=== PATIENT | female | born 1950 | race Caucasian/White ===

== ENCOUNTER 2025-03-08 18:54 | Inpatient (IN) | payer MEDICARE, SELFPAY ==
[2025-03-08 20:00] VITALS: BP 154/64; PULSE 59; RESP 18; TEMP 36.2; O2SAT 96
--- NOTE | 2025-03-08 20:50 | PD.RESCONSUL ---
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 She has a history of bladder prolapse with recurrent UTIs, and had multiple cystoplasty, last one was done more than 5 years ago. Her most recent regionally started about 3 months ago and she has been on oral ANTIBIOTICS since without resolution of symptoms. Reports burning sensation with urination, nausea, headache and chills. Denies urinary urgency or frequency, vaginal discharge, fever, vomiting/diarrhea/constipation or abdominal pain. Yesterday, she was admitted at for worsening urinary symptoms and received 1 dose of MEROPENEM in the ED. She was subsequently admitted to floors, however was told that MEROPENEM was out of stock. Additionally, she was unhappy with the service and decided to AMA. She has her urine culture results which was done 2 days ago showing ESBL Klebsiella pneumonia, sensitive to carbapenem only. Cardiac hodges, she has no history of heart failure but has been under supervision for mild mitral stenosis. She does have angina pectoralis which was managed with NITROGLYCERIN. She's had complete noninvasive cardiac workup including cardiac echo showing normal left ventricular function and nonischemic finding on nuclear stress test. Currently denies chest pain, shortness of breath, or palpitations. She has labile hypertension, also managed by cardiology on multiple medications as listed below. She's had extensive workup including MR angiogram showing no evidence of renal artery stenosis. She is also being seen by nephrology and presumably negative workup. Past Medical History: As above. Past Surgical History: Multiple cystoplasty, right hip replacement, left knee replacement. Medications: BP regimen: HYDRALAZINE 100 mg BID, HCTZ 25 mg BID, LABETALOL 200 mg BID, NIFEDIPINE 30 mg BID, GUANFACINE 2 mg HS. PRAVASTATIN 80 mg HS, LEVOTHYROXINE 150 mcg, FENOFIBRATE 160 mcg, DOXEPIN 50 mg HS, GABAPENTIN 300 mg TID, TIZANIDINE 4 mg HS PRN, ZOFRAN 4 mg q.8h. PRN. Allergies: No known allergies. Family History: Noncontributory. Social History: Born and raised in [place], has 2 children. Occasional alcohol drinking, no tobacco or illicit drug use. Reason for consult: Symptomatic ESBL Klebsiella UTI requiring admission for IV ANTIBIOTICS and further evaluation by infectious disease. cc:: cc: Jason Farfan MD Exam Vital Signs Temp Pulse Resp BP Pulse Ox O2 Del Method 97.1 F 59 L 18 154/64 H 96 Room Air 03/08/25 20:00 03/08/25 20:00 03/08/25 20:00 03/08/25 20:00 03/08/25 20:00 03/08/25 20:00 Narrative Exam GENERAL Normal appearing female, no apparent distress. HEENT NCAT.?DESTINI. Oral mucosa is moist. Patent Nares NECK Supple, nontender, no JVD. CHEST RRR, grade 2 diastolic murmur present. CTAB, no w/r/r, symmetrical expansion. ABDOMEN Soft, flat, nontender. No guarding/rebound tenderness/masses. Bowel sounds presents EXTREMITIES No edema/cyanosis.? SKIN Warm and dry, no jaundice/rashes. NEUROMUSCULAR No lumbar or midline, no CVA, no paraspinal muscle spasm or tenderness. Moves all 4 extremities well, with full ROM and good CSM. MCKENNA x4, CN II-XII grossly intact. No focal neurologic deficits. PSYCHIATRY Normal mood and affect, cooperative, no SI or HI or hallucinations. Results Labs 03/08/25 21:06 03/08/25 21:06 Quality Measures Quality Measures VTE prophylaxis Advance care planning discussed with:: patient Medications Home Medications and Allergies Home Medications ?Medication ?Instructions ?Recorded ?Confirmed ?Type doxepin 50 mg capsule 50 mg PO HS 03/08/25 03/08/25 History fenofibrate 160 mg tablet 160 mg PO DAILY 03/08/25 03/08/25 History gabapentin 300 mg capsule 300 mg PO TID 03/08/25 03/08/25 History guanfacine 2 mg tablet 2 mg PO HS 03/08/25 03/08/25 History hydralazine 100 mg tablet 100 mg PO BID 03/08/25 03/08/25 History hydrochlorothiazide 25 mg tablet 25 mg PO BID 03/08/25 03/08/25 History hydrocodone 10 mg-acetaminophen 1 tab PO Q4H PRN pain 03/08/25 03/08/25 History 325 mg tablet labetalol 200 mg tablet 200 mg PO BID 03/08/25 03/08/25 History levothyroxine 150 mcg tablet 150 mcg PO DAILY 03/08/25 03/08/25 History nifedipine 30 mg tablet,extended 30 mg PO BID 03/08/25 03/08/25 History release ondansetron 4 mg disintegrating 4 mg PO Q8H PRN nausea and vomiting 03/08/25 03/08/25 History tablet pravastatin 80 mg tablet 80 mg PO HS 03/08/25 03/08/25 History tizanidine 4 mg capsule 4 mg PO HS PRN muscle spasticity 03/08/25 03/08/25 History Allergies Allergy/AdvReac Type Severity Reaction Status Date / Time No Known Allergies Allergy Verified 03/08/25 20:55 Visit Medications Acetaminophen (Acetaminophen 325 Mg Tablet) 650 mg PO Q6H PRN PRN Reason: PAIN SCALE 1-3 (mild Stop: 04/07/25 20:42 Acetaminophen (Acetaminophen 325 Mg Tablet) 650 mg PO Q6H PRN PRN Reason: Fever >100.4 Stop: 04/07/25 20:42 Meropenem 1,000 mg/ Sodium (Chloride) 50 mls @ 100 mls/hr IV Q8HR [facility] Stop: 03/15/25 21:59 Ondansetron HCl (Ondansetron Inj 2 Mg/Ml Inj 2 Ml) 4 mg IVP Q6H PRN; Protocol PRN Reason: NAUSEA OR VOMITING Stop: 04/07/25 20:42 Pantoprazole Sodium (Pantoprazole Inj 40 Mg Vial) 40 mg IVP QDAY ROBERT Stop: 04/07/25 20:44 Assessment & Plan Plan This is a pleasant 74-year-old female with PMHx of resistant HTN, HLD, angina pectoralis, mitral valve stenosis hypothyroidism, 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 Complicated UTI secondary to ESBL Klebsiella UTI in the setting of bladder prolapse Recurrent UTI 2/2 bladder prolapse Presenting with 3 months of worsening dysuria, with new onset chills, failed outpatient ANTIBIOTIC therapy. He has bladder prolapse s/p more than 10 cystoplasties without improvement of symptoms. She had urine culture done 2 days ago which was reviewed showing ESBL Klebsiella sensitive to carbapenem only. She was admittedat [facility] yesterday and was received a dose of MEROPENIM however she was told that pharmacy was out of stock, after which she AMAed. Currently aseptic, afebrile, no leukocytosis. Renal function near baseline. ? Continue MEROPENEM q.8h. ? Pending urine and blood culture ? Pending recommendations from infectious disease Resistant hypertension Hyperlipidemia Angina pectoralis History of resistant hypertension and angina pectoralis with complete negative workup. She is on multiple home ANTIHYPERTENSIVE, managed by cardiology, Dr. Farfan. She states blood pressure usually runs in the 220s systolic at night and she becomes symptomatic with severe headache and nausea. Angina pectoralis managed with NITROGLYCERIN. Currently denies headache, chest pain, palpitations or shortness of breath. ? Continue home NIFEDIPINE 30 mg BID ? Continue home LABETALOL 200 mg BID ? Continue home HYDRALAZINE 100 mg BID (hold if SBP less than 150) ? Continue home HYDROCHLOROTHIAZIDE 20 mg BID ? Continue home GUAIFENESIN 2 mg HS ? Continue home PRAVASTATIN 40 mg daily ? Continue home FENOFIBRATE 160 mg daily ? 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 Baseline creatinine around 2.0. Currently creatinine is 1.6, BUN 24. ? Continue home Betina-Theo daily ? Renally dose meds, avoid overdiuresis and NEPHROTOXINS ? Daily CMP Hypothyroidism ? Continue home LEVOTHYROXINE 150 mg Anxiety/depression Chronic back pain ? Continue DOXEPIN 50 mg HS ? Continue GABAPENTIN 300 mg TID ? Continue home TIZANIDINE 4 mg HS ? Continue home NORCO q.4h. PRN Health maintenance Diet: Cardiorenal GI prophylaxis: PROTONIX DVT prophylaxis: HEPARIN subcu Antibiotics: MEROPENEM CODE STATUS: Full code Disposition: Admitted for ESBL UTI, on IV ANTIBIOTICS, pending ID recommendations. Case was discussed with attending physician, Dr. Swanson. Valeria Fraser DO PGY II This document was transcribed using voice recognition technology. Minor inaccuracies may be present. Attending Provider Attestation/Addendum I have examined the patient, reviewed labs and imaging findings, discussed the case with the resident(s), and reviewed entered orders. I agree with the plan of care as outlined in this note, with these additional summaries/recommendations: Patient direct admit from cardiology service. In short, she is a 74-year-old female with extensive medical history including bladder prolapse complicated by recurrent UTI requiring IV antibiotic therapy on multiple occasions in the past. Patient recently admitted at [facility] just prior to admission here after cultures grew ESBL Klebsiella. She will be admitted for further IV antibiotic therapy and management planning. Garrison Swanson MD
--- NOTE | 2025-03-08 20:55 | XR_ITS ---
Examination: AP chest single view Technique one AP portable upright chest single view Date and time: March 08, 2025 1018 hrs. Indications: Coughing congestion today. Findings: Normal heart size Lungs are clear. The osseous structures are intact Impression: No active disease
[2025-03-08 21:17] LABS: Basophils # (Auto) 0.0 Thou/mm3 (0.0-0.2); Basophils % (Auto) 1 % (0-2.5); Eosinophils # (Auto) 0.1 Thou/mm3 (0.0-0.5); Eosinophils % (Auto) 1 % (0-10); Hematocrit 38.6 % (36.0-46.0); Hemoglobin 12.2 g/dL (12.0-16.0); Immature Granulocytes Auto 0.03 Thou/mm3 (0.00-0.00); Lymphocytes # (Auto) 1.8 Thou/mm3 (1.0-4.8); Lymphocytes % (Auto) 31 % (10-50); Mean Corpuscular HGB Conc 31.6 g/dl (31.0-37.0); Mean Corpuscular Hemoglobin 29.0 pg (25.0-35.0); Mean Corpuscular Volume 92 fL (80-100); Monocytes # (Auto) 0.6 Thou/mm3 (0.0-0.8); Monocytes % (Auto) 10 % (0-12); Neutrophils # (Auto) 3.4 Thou/mm3 (1.8-7.7); Neutrophils % (Auto) 57 % (37-80); Nucleated Red Blood Cell # 0.00 Thou/mm3 (0.00-0.00); Nucleated Red Blood Cell % 0 /100 WBC (0); Platelet Count 216 Thou/mm3 (140-440); RDW Standard Deviation 53.7 fL (36.4-46.3); Red Blood Count 4.21 Miln/mm3 (4.00-5.20); White Blood Count 5.9 Thou/mm3 (3.6-11.0)
[2025-03-08 21:41] LABS: Alanine Aminotransferase 20 U/L (10-49); Albumin, Serum 4.9 gm/dL (3.4-4.8); Albumin/Globulin Ratio 2.2 (1.2-2.2); Alkaline Phosphatase 37 U/L (46-116); Anion Gap 11 (7-16); Aspartate Amino Transferase 26 U/L (0-34); BUN/Creatinine Ratio 15 Ratio (12-20); Bilirubin,Total 0.3 mg/dL (0.3-1.2); Blood Urea Nitrogen 24 mg/dL (9-23); Calcium 10.1 mg/dL (8.3-10.6); Calcium (Corrected) 10.1 mg/dL (8.5-10.1); Carbon Dioxide 27.8 mMol/L (20.0-31.0); Chloride 105 mMol/L (98-107); Creatinine (Component) 1.6 mg/dL (0.6-1.3); Globulin 2.2 gm/dL (2.3-3.5); Glucose 126 mg/dL (74-106); Magnesium 1.8 mg/dL (1.6-2.6); Osmolality,Calculated 292 (275-295); Potassium 3.6 mMol/L (3.4-5.1); Sodium 144 mMol/L (136-145); Total Protein 7.1 gm/dL (5.7-8.2); eGFR 34 See Note
--- NOTE | 2025-03-08 22:00 | PD.RESCONSUL ---
HPI Data of Consult Requesting Physician: Jason Farfan MD Admitting Provider: Jason Farfan MD Attending Provider: Jason Farfan MD Primary Care Provider: Kim Edwards MD Consult Narrative cc:: cc: Jason Farfan MD Exam Vital Signs Temp Pulse Resp BP Pulse Ox O2 Del Method 97.1 F 59 L 18 154/64 H 96 Room Air 03/08/25 20:00 03/08/25 20:00 03/08/25 20:00 03/08/25 20:00 03/08/25 20:00 03/08/25 20:00 Results Labs 03/08/25 21:06 03/08/25 21:06 Labs: Short CBC 03/08/25 Range/Units 21:06 WBC 5.9 (3.6-11.0) Thou/mm3 Hgb 12.2 (12.0-16.0) g/dL Hct 38.6 (36.0-46.0) % Plt Count 216 (140-440) Thou/mm3 BMP 03/08/25 21:06 Sodium 144 Potassium 3.6 Chloride 105 Carbon Dioxide 27.8 BUN 24 H Creatinine 1.6 H Glucose 126 H Calcium 10.1 Liver Function 03/08/25 Range/Units 21:06 Total Bilirubin 0.3 (0.3-1.2) mg/dL AST 26 (0-34) U/L ALT 20 (10-49) U/L Alkaline Phosphatase 37 L (46-116) U/L Albumin 4.9 H (3.4-4.8) gm/dL Medications Home Medications and Allergies Home Medications ?Medication ?Instructions ?Recorded ?Confirmed ?Type doxepin 50 mg capsule 50 mg PO HS 03/08/25 03/08/25 History fenofibrate 160 mg tablet 160 mg PO DAILY 03/08/25 03/08/25 History gabapentin 300 mg capsule 300 mg PO TID 03/08/25 03/08/25 History guanfacine 2 mg tablet 2 mg PO HS 03/08/25 03/08/25 History hydralazine 100 mg tablet 100 mg PO BID 03/08/25 03/08/25 History hydrochlorothiazide 25 mg tablet 25 mg PO BID 03/08/25 03/08/25 History hydrocodone 10 mg-acetaminophen 1 tab PO Q4H PRN pain 03/08/25 03/08/25 History 325 mg tablet labetalol 200 mg tablet 200 mg PO BID 03/08/25 03/08/25 History levothyroxine 150 mcg tablet 150 mcg PO DAILY 03/08/25 03/08/25 History nifedipine 30 mg tablet,extended 30 mg PO BID 03/08/25 03/08/25 History release ondansetron 4 mg disintegrating 4 mg PO Q8H PRN nausea and vomiting 03/08/25 03/08/25 History tablet pravastatin 80 mg tablet 80 mg PO HS 03/08/25 03/08/25 History tizanidine 4 mg capsule 4 mg PO HS PRN muscle spasticity 03/08/25 03/08/25 History Allergies Allergy/AdvReac Type Severity Reaction Status Date / Time No Known Allergies Allergy Verified 03/08/25 20:55 Visit Medications Acetaminophen (Acetaminophen 325 Mg Tablet) 650 mg PO Q6H PRN PRN Reason: PAIN SCALE 1-3 (mild Stop: 04/07/25 20:42 Acetaminophen (Acetaminophen 325 Mg Tablet) 650 mg PO Q6H PRN PRN Reason: Fever >100.4 Stop: 04/07/25 20:42 Hydrocodone Bitart/Acetaminophen (Hydrocodone/Apap 10/325 Tab) 1 tab PO Q4H PRN PRN Reason: PAIN Stop: 03/13/25 20:54 Doxepin HCl (Doxepin Hcl 25 Mg Capsule) 50 mg PO HS [facility]ERT Stop: 04/07/25 20:59 Gabapentin (Gabapentin 300 Mg Capsule) 300 mg PO TID ROBERT Stop: 04/07/25 21:59 Hydralazine HCl (Hydralazine Hcl 25 Mg Tablet) 100 mg PO BID ROBERT Stop: 04/07/25 20:59 Meropenem 1,000 mg/ Sodium (Chloride) 50 mls @ 100 mls/hr IV Q8HR [facility] Stop: 03/15/25 21:59 Labetalol HCl (Labetalol 100 Mg Tablet) 200 mg PO BID [facility] Stop: 04/07/25 21:59 Levothyroxine Sodium (Levothyroxine Sodium 100 Mcg Tablet) 150 mcg PO ACBR ROBERT Stop: 04/08/25 05:59 Nifedipine (Nifedipine Xl 30 Mg Tabcr) 30 mg PO BID ROBERT Stop: 04/07/25 21:59 Non-Formulary Medication (Fenofibrate) 160 mg PO DAILY [facility]ERT Stop: 04/08/25 08:59 Non-Formulary Medication (Guanfacine) 2 mg PO HS ROBERT Stop: 04/07/25 20:59 Ondansetron HCl (Ondansetron Inj 2 Mg/Ml Inj 2 Ml) 4 mg IVP Q6H PRN; Protocol PRN Reason: NAUSEA OR VOMITING Stop: 04/07/25 20:42 Pantoprazole Sodium (Pantoprazole Inj 40 Mg Vial) 40 mg IVP QDAY ROBERT Stop: 04/07/25 20:44 Pravastatin Sodium (Pravastatin Sodium 10 Mg Tablet) 80 mg PO HS ROBERT Stop: 04/08/25 20:59 Tizanidine HCl (Tizanidine Hcl 2 Mg Tablet) 4 mg PO HS PRN PRN Reason: Muscle Spasticity Stop: 04/07/25 20:54 Discontinued Medications Hydralazine HCl (Hydralazine Hcl 25 Mg Tablet) 100 mg PO BID ROBERT Stop: 04/07/25 20:59
[2025-03-08] MEDS: DOXEPIN HCL 25 MG CAPSULE 50 MG PO (22:10)
[2025-03-08] MEDS: MEROPENEM INJ 1,000 MG in SODIUM CHLORIDE 0.9% (Popper) 50 ML 100 MG IV (22:10)
[2025-03-08 22:11] VITALS: BP 154/64; PULSE 59
[2025-03-08] MEDS: NIFEdipine XL 30 MG TABCR PO (22:11)
[2025-03-08] MEDS: LABETALOL 100 MG TABLET 200 MG PO (22:11)
[2025-03-08] MEDS: GABAPENTIN 300 MG CAPSULE PO (22:11)
[2025-03-08 22:21] VITALS: BP 154/64; PULSE 59
[2025-03-09] VITALS (15 sets, daily range): BP systolic 110–154; BP diastolic 48–78; PULSE 51–70; RESP 16–19; TEMP 36.2–36.7; O2SAT 94–97
--- NOTE | 2025-03-09 | XR_ITS ---
Examination: Ultrasound-guided needle placement right basilic vein. Dual-lumen central line placement (PICC line). Fluoroscopy AP chest, portable, single view Exam date and time:March 09, 2025, 1222 hours INDICATIONS: Long-term intravenous antibiotic therapy is needed A timeout was completed verifying correct patient, procedure, site, positioning Informed consent provided Technique: The patient's site was prepped and draped in sterile fashion. Maximum Sterile Barrier Technique used including cap, mask, sterile gown, sterile gloves, and sterile full body drape. If ultrasound technique used: sterile gel and sterile probe covers. Hand Hygiene performed using proper scrub, soap and water, or alcohol-based hand rub. Ultrasound guided apparatus utilized to confirm patency of the right basilic vein, utilizing ultrasonographic guidance successful 21-gauge needle puncture right basilic vein Ultrasound images recorded and stored. 5 cc 1% lidocaine administered for local anesthetic. Successful micropuncture with a 21-gauge needle is performed. 0.18 wire guide is then introduced into the SVC under fluoroscopic guidance. Dual-lumen catheter dilator is then introduced, followed by the catheter in the SVC and proper position under fluoroscopic guidance. Successful aspiration of blood and flushing with heparinized saline is then performed in the 2 venous limbs. The catheter sutured in place. Findings: Under fluoroscopy, the tip of the catheter is in good position in the vena cava. Portable chest x-ray, post line placement is ordered. Estimated blood loss 3 cc The patient tolerated the procedure well and was in stable and satisfactory condition at completion of the procedure Impression: Successful ultrasound-guided needle placement right basilic vein Successful placement of dual lumen central line, percutaneous Fluoroscopy 0.1 minute radiation dose 1.23 milligray 1 spot fluoroscopic chest film. AP chest completion procedure demonstrates satisfactory position central line. May use central line.
[2025-03-09 05:26] LABS: Basophils # (Auto) 0.0 Thou/mm3 (0.0-0.2); Basophils % (Auto) 1 % (0-2.5); Eosinophils # (Auto) 0.1 Thou/mm3 (0.0-0.5); Eosinophils % (Auto) 1 % (0-10); Hematocrit 32.3 % (36.0-46.0); Hemoglobin 10.4 g/dL (12.0-16.0); Immature Granulocytes Auto 0.01 Thou/mm3 (0.00-0.00); Lymphocytes # (Auto) 1.6 Thou/mm3 (1.0-4.8); Lymphocytes % (Auto) 36 % (10-50); Mean Corpuscular HGB Conc 32.2 g/dl (31.0-37.0); Mean Corpuscular Hemoglobin 29.1 pg (25.0-35.0); Mean Corpuscular Volume 91 fL (80-100); Monocytes # (Auto) 0.6 Thou/mm3 (0.0-0.8); Monocytes % (Auto) 14 % (0-12); Neutrophils # (Auto) 2.1 Thou/mm3 (1.8-7.7); Neutrophils % (Auto) 48 % (37-80); Nucleated Red Blood Cell # 0.00 Thou/mm3 (0.00-0.00); Nucleated Red Blood Cell % 0 /100 WBC (0); Platelet Count 200 Thou/mm3 (140-440); RDW Standard Deviation 52.8 fL (36.4-46.3); Red Blood Count 3.57 Miln/mm3 (4.00-5.20); White Blood Count 4.3 Thou/mm3 (3.6-11.0)
[2025-03-09] MEDS: LEVOTHYROXINE SODIUM 100 MCG TABLET 150 MCG PO (05:54)
[2025-03-09] MEDS: MEROPENEM INJ 1,000 MG in SODIUM CHLORIDE 0.9% (Popper) 50 ML 100 MG IV ×3 (05:54→21:19)
[2025-03-09] MEDS: GABAPENTIN 300 MG CAPSULE PO ×3 (05:54→21:21)
[2025-03-09 06:15] LABS: Alanine Aminotransferase 15 U/L (10-49); Albumin, Serum 3.9 gm/dL (3.4-4.8); Albumin/Globulin Ratio 2.2 (1.2-2.2); Alkaline Phosphatase 28 U/L (46-116); Anion Gap 10 (7-16); Aspartate Amino Transferase 21 U/L (0-34); BUN/Creatinine Ratio 15 Ratio (12-20); Bilirubin,Total 0.3 mg/dL (0.3-1.2); Blood Urea Nitrogen 21 mg/dL (9-23); Calcium 9.2 mg/dL (8.3-10.6); Calcium (Corrected) 9.3 mg/dL (8.5-10.1); Carbon Dioxide 26.4 mMol/L (20.0-31.0); Chloride 108 mMol/L (98-107); Creatinine (Component) 1.4 mg/dL (0.6-1.3); Globulin 1.8 gm/dL (2.3-3.5); Glucose 105 mg/dL (74-106); Magnesium 1.6 mg/dL (1.6-2.6); Osmolality,Calculated 289 (275-295); Phosphorous 4.7 mg/dL (2.4-5.1); Potassium 3.9 mMol/L (3.4-5.1); Sodium 144 mMol/L (136-145); Total Protein 5.7 gm/dL (5.7-8.2); eGFR 39 See Note
[2025-03-09] MEDS: VIT B12/Vit C/FA (Nephrovite) TABLET 1 TAB PO (08:16)
[2025-03-09] MEDS: NIFEdipine XL 30 MG TABCR PO ×2 (08:16→21:22)
[2025-03-09] MEDS: PANTOPRAZOLE 40 MG TABLET PO (08:16)
[2025-03-09] MEDS: HEPARIN SOD INJ 5000 UNIT/ML VIAL SC (08:16)
[2025-03-09] MEDS: LABETALOL 100 MG TABLET 200 MG PO ×2 (08:16→21:20)
[2025-03-09] MEDS: Magnesium Sulfate 4 GM Ivpb 4 GM/50 ML BAG IV (09:44)
--- NOTE | 2025-03-09 10:12 | PC.SS ---
Patient Oscar Slaughter is a 74 Year old female admitted for Failed Out patient treatment. SS contacted patient via phone due to precaution measures to discuss discharge plan and verify demographic information. Patient reports she lives at home with her , Gigi Slaughter who patient reports is her surrogate decision maker, [phone]. Patient reports prior to admission she did not utilize any source of DME to assist with ambulation. Patient reports his PCP is Kim Edwards. [facility] [place]. Discharge plan was discussed and patient wishes to return home. Discharge plan: Home Next of kin: , Gigi Slaughter
[2025-03-09 10:27] LABS: Collection Type, Urine Clean Catch
[2025-03-09 10:32] LABS: Bilirubin,Urine Negative (Negative); Blood,Urine Negative (Negative); Clarity,Urine Clear (Clear/Hazy); Color,Urine Yellow (Lt Yel-Yel); Glucose, Urine Negative (Negative); Ketones,Urine Negative (Negative); Leukocyte Esterase,Urine Positive (Negative); Nitrite,Urine Negative (Negative); PH,Urine 6.0 (5.0-7.0); Protein,Urine Negative (Neg - Trace); RBC,Urine 1 /hpf (0-3); Specific Gravity,Urine 1.016 (1.001-1.035); Squamous Epithelial Cell,Urine 1 /hpf (0-5); Urobilinogen,Urine Negative mg/dL (0.0-1.0); WBC,Urine 23 /hpf (0-5)
--- NOTE | 2025-03-09 11:54 | ESPR_ITS ---
<Statement entered by Man Jose MD - 03/09/25 13:55> Patient seen and assessed in hospital bed reporting improvement in presenting symptoms. Patient's blood pressure is well-controlled with her home regimen reinstated in the hospital. Will put an order for PICC line placement as the patient will require 7 days of IV antibiotics; plan is to discharge upon home health approval with IV ertapenem 1 g daily 03/14/2025. Patient otherwise doing well, will continue monitoring for any acute changes. I have personally seen and examined the patient. I agree with the resident's assessment and plan as documented below. Man Jose DO PGY-2 Internal Medicine - GME Documentation for date of: 03/09/25 Subjective Subjective Interval history: Patient was admitted overnight. Patient has no complaints this morning, endorses that she has been chronically urinary incontinent. Wears pad at home and follows with urologist at [facility]. Denies nausea or dysuria, continues to feel fatigued but much improved. Blood pressure is well-controlled, continued patient's home blood pressure regimen per courtesy van driver Dr. Farfan's recommendation. PICC line placed today. Started on IV meropenem 1 g on admission. Patient will require 7 days of antibiotics, plan to discharge tomorrow with home health with ertapenem. Exam Vital Signs Temp Pulse Resp BP Pulse Ox O2 Del Method 97.4 F 55 L 19 133/53 H 96 Room Air 03/09/25 08:00 03/09/25 09:25 03/09/25 08:00 03/09/25 08:16 03/09/25 08:00 03/09/25 08:00 Narrative Exam Physical Exam General: Awake and in no acute distress. Conversational and non-toxic appearing. HEENT: Normocephalic, atraumatic, mucous membranes moist. Heart: Regular rate and rhythm, normal S1 and S2, no murmurs appreciated. Lungs: Clear to auscultation with no wheezing or crackles. Abdomen: Soft, nondistended, nontender, positive bowel sounds. No guarding or rebound tenderness. Neurologic: Alert and oriented x3, no gross neurological deficit, and patient able to move all 4 extremities. Extremities: No edema. Skin: No rash or ecchymoses. Objective Labs 03/10/25 05:30 03/10/25 05:30 Labs: Laboratory Results - last 24 hr 03/08/25 03/09/25 03/09/25 21:06 04:25 09:55 WBC 5.9 4.3 RBC 4.21 3.57 L Hgb 12.2 10.4 L Hct 38.6 32.3 L MCV 92 91 MCH 29.0 29.1 MCHC 31.6 32.2 RDW Std Deviation 53.7 H 52.8 H Plt Count 216 200 Neut % (Auto) 57 48 Lymph % (Auto) 31 36 [place] % (Auto) 10 14 H Eos % (Auto) 1 1 Baso % (Auto) 1 1 Neut # (Auto) 3.4 2.1 Lymph # (Auto) 1.8 1.6 [place] # (Auto) 0.6 0.6 Eos # (Auto) 0.1 0.1 Baso # (Auto) 0.0 0.0 Immature Gran # (Auto) 0.03 H 0.01 H Absolute Nucleated RBC 0.00 0.00 Immature Gran % 1 H 0 Nucleated RBC % 0 0 Sodium 144 144 Potassium 3.6 3.9 Chloride 105 108 H Carbon Dioxide 27.8 26.4 Anion Gap 11 10 BUN 24 H 21 Creatinine 1.6 H 1.4 H Estim Creat Clear Calc Not Performed. Not Performed. eGFR 34 L 39 L BUN/Creatinine Ratio 15 15 Glucose 126 H 105 Calculated Osmolality 292 289 Calcium 10.1 9.2 Corrected Calcium 10.1 9.3 Phosphorus 4.7 Magnesium 1.8 1.6 Total Bilirubin 0.3 0.3 AST 26 21 ALT 20 15 Alkaline Phosphatase 37 L 28 L D Total Protein 7.1 5.7 Albumin 4.9 H 3.9 D Globulin 2.2 L 1.8 L Albumin/Globulin Ratio 2.2 2.2 Ur Collection Type Clean Catch Urine Color Yellow Urine Clarity Clear Urine pH 6.0 Ur Specific [place] 1.016 Urine Protein Negative Urine Glucose (UA) Negative Urine Ketones Negative Urine Blood Negative Urine Nitrite Negative Urine Bilirubin Negative Urine Urobilinogen (Auto) Negative Ur Leukocyte Esterase Positive Urine RBC 1 Urine WBC 23 H Ur Squamous Epith Cells 1 Urine Bacteria None Quality Measures Quality Measures VTE prophylaxis Advance care planning discussed with:: patient Assessment & Plan Assessment Current Active Medications: Generic Name Dose Route Start Last Admin Trade Name Freq PRN Reason Stop Dose Admin Acetaminophen 650 mg 03/08/25 20:43 Acetaminophen 325 Mg Tablet PO 04/07/25 20:42 Q6H PRN PAIN SCALE 1-3 (mild Acetaminophen 650 mg 03/08/25 20:43 Acetaminophen 325 Mg Tablet PO 04/07/25 20:42 Q6H PRN Fever >100.4 Hydrocodone Bitart/Acetaminophen 1 tab 03/09/25 02:14 Hydrocodone/Apap 10/325 Tab PO 03/14/25 02:12 Q4H PRN Pain 4-10 Diphenhydramine HCl 25 mg 03/08/25 22:07 03/08/25 22:21 Diphenhydramine 25 Mg Capsule PO 04/07/25 22:06 25 mg Q6HR PRN Administration ITCHING Doxepin HCl 50 mg 03/08/25 21:00 03/08/25 22:10 Doxepin Hcl 25 Mg Capsule PO 04/07/25 20:59 50 mg HS ROBERT Administration Gabapentin 300 mg 03/08/25 22:00 03/09/25 05:54 Gabapentin 300 Mg Capsule PO 04/07/25 21:59 300 mg TID ROBERT Administration Guanfacine HCl 2 mg 03/09/25 21:00 Guanfacine Hcl 1 Mg Tablet (Non-Formulary) PO 04/08/25 20:59 HS ROBERT Heparin Sodium (Porcine) 5,000 unit 03/09/25 09:00 03/09/25 08:16 Heparin Sod Inj 5000 Unit/Ml Vial SC 03/23/25 08:59 5,000 unit BID ROBERT Administration Hydralazine HCl 100 mg 03/08/25 22:10 03/09/25 08:23 Hydralazine Hcl 25 Mg Tablet PO 04/07/25 22:09 Not Given BID ROBERT Hydrochlorothiazide 25 mg 03/09/25 09:00 03/09/25 08:15 Hydrochlorothiazide 12.5 Mg Capsule PO 04/08/25 08:59 25 mg BID ROBERT Administration Meropenem 1,000 mg/ Sodium 50 mls @ 100 mls/hr 03/08/25 22:00 03/09/25 05:54 Chloride IV 03/15/25 21:59 100 mls/hr Q8HR ROBERT Administration Magnesium Sulfate 4 gm in 50 mls @ 12.5 mls/hr 03/09/25 08:12 03/09/25 09:44 Magnesium Sulfate Ivpb IV 03/09/25 12:11 12.5 mls/hr X1 ONE Administration Labetalol HCl 200 mg 03/08/25 22:00 03/09/25 08:16 Labetalol 100 Mg Tablet PO 04/07/25 21:59 200 mg BID ROBERT Administration Levothyroxine Sodium 150 mcg 03/09/25 06:00 03/09/25 05:54 Levothyroxine Sodium 100 Mcg Tablet PO 04/08/25 05:59 150 mcg ACBR ROBERT Administration Nifedipine 30 mg 03/08/25 22:00 03/09/25 08:16 Nifedipine Xl 30 Mg Tabcr PO 04/07/25 21:59 30 mg BID ROBERT Administration Nitroglycerin 0.4 mg 03/08/25 22:30 Nitroglycerin 0.4 Mg Subl Btl #25 SL Q5MIN PRN CHEST PAIN Non-Formulary Medication 160 mg 03/09/25 09:00 Fenofibrate PO 04/08/25 08:59 DAILY ROBERT Ondansetron HCl 4 mg 03/08/25 20:43 Ondansetron Inj 2 Mg/Ml Inj 2 Ml IVP 04/07/25 20:42 Q6H PRN NAUSEA OR VOMITING Protocol Pantoprazole Sodium 40 mg 03/09/25 09:00 03/09/25 08:16 Pantoprazole 40 Mg Tablet PO 04/08/25 08:59 40 mg QDAY ORBERT Administration Protocol Pravastatin Sodium 80 mg 03/09/25 21:00 Pravastatin Sodium 10 Mg Tablet PO 04/08/25 20:59 HS ROBERT Tizanidine HCl 4 mg 03/08/25 20:55 Tizanidine Hcl 2 Mg Tablet PO 04/07/25 20:54 HS PRN Muscle Spasticity Vitamin B Complex/Vit C/Folic Acid 1 tab 03/09/25 09:00 03/09/25 08:16 Vit B12/Vit C/Fa (Nephrovite) Tablet PO 04/08/25 08:59 1 tab QDAY ROBERT Administration Plan Patient is a 74-year-old female with past medical history of persistent HTN, HLD, angina pectoralis, mitral valve stenosis, hypothyroidism, CKD stage IIIB, recurrent UTIs, anxiety/depression, chronic pain, who was transferred on 03/09 from [facility] for ESBL UTI. #Complicated ESBL UTI in the setting of bladder prolapse # Hx of recurrent UTIs # Bladder prolapse s/p multiple surgeries Presented with 3 months of worsening dysuria, with new onset chills, failed outpatient oral antibiotic therapy. Has long history of bladder prolapse s/p more than 10 cystoplasties without improvement of symptoms. Follows with urologist at [facility]. Urine culture from 03/07 outpatient showed ESBL Klebsiella sensitive to carbapenem only. Was admitted at on 03/07 and received a dose of meropenem but was not able to complete full course due to low stock. On admission, WBC within normal limits. Patient is afebrile. Plan: ? Meropenem IV 1 g daily (03/07- - PICC line placed today, plan to discharge with erbapenem for complete 7 day course ? Pending urine and blood culture #Resistant hypertension #Hyperlipidemia #Angina pectoralis History of resistant hypertension and angina pectoralis with complete negative workup. She is on multiple home antihypertensive medications managed by cardiology, Dr. Farfan. Unclear etiology despite extensive work up. Historically she ran in 220s systolic at night and she becomes symptomatic with severe headache and nausea. Takes nitroglycerin for angina pectoralis. Currently denies headache, chest pain, palpitations or shortness of breath. Plan: ? Continue home dose nifedipine, labetalol, hydralazine, hydrochlorothiazide, guaifenesin ? Continue home dose pravastatin and fenofibrate ? Continue home dose nitroglycerin as needed for chest pain #CKD stage IIIb Chronic medical condition likely secondary to hypertensive nephrosclerosis. Baseline creatinine around 2.0. Currently creatinine is 1.6, BUN 24. Plan: ? Continue home Betina-Theo daily ? Renally dose meds, avoid overdiuresis and nephrotoxic agents ? CTM CMP #Hypothyroidism ? Continue home dose levothyroxine 150 mg daily #Anxiety/depression #Chronic back pain ? Continue home dose enoxaparin ? Continue home dose gabapentin, tizanidine, [place] as needed Health Maintenance Disposition: MedSurg DVT prophylaxis: Heparin GI prophylaxis: Protonix Diet: Cardiorenal CODE STATUS: Full Patient plan of care was discussed with the resident, Dr. Jose, and attending physician, Dr. Saeed. Nilam Bennett, PGY-1 Attending Provider Attestation/Addendum I have discussed and was present for the essential components of the history, physical examination, diagnosis, and treatment plan with the resident. I agree with the patient's care as documented by the resident and amended herein by me. Raz Saeed DO. Although this document has been carefully reviewed, there may still be some phonetic and other typographical errors. These errors are purely grammatical due to imperfections in the software program and should not be construed in any way to compromise the substance of the patient's medical care during this visit.
[2025-03-09] MEDS: HEPARIN SOD LOCK SYR 100 UNIT/ML 500 UNIT IV (13:10)
[2025-03-09] MEDS: LIDOCAINE INJ PF 1% 30 ML VIAL INFL (13:10)
--- NOTE | 2025-03-09 15:30 | PC.SS ---
SS follow up note; Patient is on IV ABX, pending DR. Darby's Rec's. Possible PIC-Line.
--- NOTE | 2025-03-09 16:01 | PC.CC ---
Addendum entered by Lani Owen RN 03/09/25 17:01: canceled [facility] request with [facility]. closed out case Addendum entered by Lani Owen RN 03/09/25 16:59: spoke to the patient Oscar, she states she does not have anyone to help her with IV abx. Her is 88 years old and does not believe he is capable to administer the IV abx. I spoke to Dr. Saeed, informed him that w/o a willing CG to administer the IV meds, she doesn't qualify for home health. He said to cancel. Addendum entered by Lani Owen RN 03/09/25 16:44: [facility] accepted and booked. [facility] can open on 03/10, however still working with [facility] for med delivery. Original Note: spoke to patient, freedom of choice for hh provided. patient chose [facility]. [facility] ref sent [facility], waiting for response
--- NOTE | 2025-03-09 17:43 | ESHP_ITS ---
<Statement entered by Jason Farfan MD - 03/10/25 10:13> I personally evaluated examined this patient with PGY 2Dr. Brian Leon patient is well-known to me longstanding history of severe and difficult control hypertension is can chronic back problems back pain history of bladder prolapse with recurrent urinary infections and hypertension came to the hospital because of ESBL urinary tract infection with Klebsiella resistant to most antibiotic except the meropenem admitted to hospital IV antibiotic therapy for 7 days and difficult control hypertension on multiple medication will be continued elevated the patient with PGY 2 Dr. Leon will agree with treatment plan recommendations ID consultation will be obtained patient will require home antibiotic therapy. Documentation for date of: 03/08/25 HPI History of Present Illness Chief complaint: Urinary tract infection/ resistant hypertension History of present illness: 74-year-old female with past medical history of resistant hypertension, hyperlipidemia, mitral stenosis, hypothyroidism, CKD stage IIIb, recurrent UTIs, anxiety depression, chronic pain presenting with burning with urination and dysuria. Patient originally went to for the symptoms however patient was waiting over 2 hours with a systolic blood pressure of 229 and was not given her meds. She also had a urine culture with ESBL Klebsiella resistant to everything except carbapenems. Medication was not available in that institution so the patient signed AMA and left. She spoke to her tour counselor Dr. Farfan who recommended admitting her to [facility]. Prior to coming to [facility] she was on oral antibiotic therapy however her symptoms continue to persist. She has a history of bladder prolapse with recurrent UTIs, and had multiple cystoplasty, last one was done more than 5 years ago. Her most recent regionally started about 3 months ago and she has been on oral antibiotic therapy since without resolution of symptoms. Reports burning sensation with urination, nausea, headache and chills. Denies urinary urgency or frequency, vaginal discharge, fever, vomiting/diarrhea/constipation or abdominal pain. Patient has very resistant hypertension requiring many medications to control which are managed by her tour counselor Dr. Farfan. Patient was admitted for management of urinary tract infection in the setting of failing outpatient therapy. PMHx: As above SX Hx: Multiple cystoplasty, right hip replacement, left knee replacement Social Hx: Social drinking, no tobacco or illicit drug use including THC FH X: Unknown Allergies: No known drug allergies Medications: Hydralazine 100 mg twice daily, hydrochlorothiazide 25 mg twice daily, labetalol 200 mg twice daily, nifedipine 30 mg twice daily, guanfacine 2 mg at bedtime, pravastatin 80 mg at bedtime, levothyroxine 150 mcg, fenofibrate 160 mcg, doxepin 50 mg at bedtime, gabapentin 300 mg 3 times daily, tizanidine 4 mg at bedtime as needed, Zofran 4 mg every 8 as needed Review of Systems Review of Systems Systems Reviewed: All systems reviewed, normal except as documented Exam Vital Signs Temp Pulse Resp BP Pulse Ox O2 Del Method 98.0 F 63 17 121/48 L 94 L Room Air 03/09/25 16:00 03/09/25 17:38 03/09/25 16:00 03/09/25 16:00 03/09/25 16:00 03/09/25 16:00 Narrative Exam Physical Exam GENERAL: NAD, AAOx3 HEENT: Moist mucosa. Eyes open, symmetrical, & clear CARDIO: Heart RRR, no obvious murmurs PULM: No noted coughing/dyspnea CTA B/L, no R/W/R GI: Abdomen soft, nondistended, no pain on palpation. BSx4 SKIN/MSK/EXT: No wounds/rashes/edema/amputations, no pain on palpation. Pedal pulses present B/L NEURO: AAOx3, no focal neuro deficits, able to move all 4 extremities Results: Labs 03/09/25 04:25 03/09/25 04:25 Labs: Short CBC 03/08/25 03/09/25 Range/Units 21:06 04:25 WBC 5.9 4.3 (3.6-11.0) Thou/mm3 Hgb 12.2 10.4 L (12.0-16.0) g/dL Hct 38.6 32.3 L (36.0-46.0) % Plt Count 216 200 (140-440) Thou/mm3 BMP 03/08/25 03/09/25 21:06 04:25 Sodium 144 144 Potassium 3.6 3.9 Chloride 105 108 H Carbon Dioxide 27.8 26.4 BUN 24 H 21 Creatinine 1.6 H 1.4 H Glucose 126 H 105 Calcium 10.1 9.2 Liver Function 03/08/25 03/09/25 Range/Units 21:06 04:25 Total Bilirubin 0.3 0.3 (0.3-1.2) mg/dL AST 26 21 (0-34) U/L ALT 20 15 (10-49) U/L Alkaline Phosphatase 37 L 28 L D (46-116) U/L Albumin 4.9 H 3.9 D (3.4-4.8) gm/dL Urine 03/09/25 Range/Units 09:55 Urine Color Yellow (Lt Yel-Yel) Urine Clarity Clear (Clear/Hazy) Urine pH 6.0 (5.0-7.0) Ur Specific [place] 1.016 (1.001-1.035) Urine Protein Negative (Neg - Trace) Urine Glucose (UA) Negative (Negative) Quality Measures Quality Measures VTE prophylaxis Advance care planning discussed with:: patient Medications Home Medications and Allergies Home Medications ?Medication ?Instructions ?Recorded ?Confirmed ?Type doxepin 50 mg capsule 50 mg PO HS 03/08/25 5 History fenofibrate 160 mg tablet 160 mg PO DAILY 03/08/25 History gabapentin 300 mg capsule 300 mg PO TID 03/08/2503/08 History guanfacine 2 mg tablet 2 mg PO HS 03/08/25 03/08/25 History hydralazine 100 mg tablet 100 mg PO BID 03/08/2503/08 History hydrochlorothiazide 25 mg tablet 25 mg PO BID 03/08/25 03/08/25 History hydrocodone 10 mg-acetaminophen 1 tab PO Q4H PRN pain 03/08/25 03/08/25 History 325 mg tablet labetalol 200 mg tablet 200 mg PO BID 03/08/2503/08 History levothyroxine 150 mcg tablet 150 mcg PO DAILY 03/08/25 03/08/25 History nifedipine 30 mg tablet,extended 30 mg PO BID 03/08/25 03/08/25 History release ondansetron 4 mg disintegrating 4 mg PO Q8H PRN nausea and vomiting 03/08/25 03/08/25 History tablet pravastatin 80 mg tablet 80 mg PO HS 03/08/25 5 History tizanidine 4 mg capsule 4 mg PO HS PRN muscle spasti [place] 03/08/25 03/08/25 History Allergies Allergy/AdvReac Type Severity Reaction Status Date / Time No Known Allergies Allergy Verified 03/08/25 20:55 Visit Medications Acetaminophen (Acetaminophen 325 Mg Tablet) 650 mg PO Q6H PRN PRN Reason: PAIN SCALE 1-3 (mild Stop: 04/07/25 20:42 Acetaminophen (Acetaminophen 325 Mg Tablet) 650 mg PO Q6H PRN PRN Reason: Fever >100.4 Stop: 04/07/25 20:42 Hydrocodone Bitart/Acetaminophen (Hydrocodone/Apap 10/325 Tab) 1 tab PO Q4H PRN PRN Reason: Pain 4-10 Stop: 03/14/25 02:12 Last Admin: 03/09/25 14:23 Dose: 1 tab Diphenhydramine HCl (Diphenhydramine 25 Mg Capsule) 25 mg PO Q6HR PRN PRN Reason: ITCHING Stop: 04/07/25 22:06 Last Admin: 03/08/25 22:21 Dose: 25 mg Doxepin HCl (Doxepin Hcl 25 Mg Capsule) 50 mg PO HS ROBERT Stop: 04/07/25 20:59 Last Admin: 03/08/25 22:10 Dose: 50 mg Gabapentin (Gabapentin 300 Mg Capsule) 300 mg PO TID ROBERT Stop: 04/07/25 21:59 Last Admin: 03/09/25 14:17 Dose: 300 mg Guanfacine HCl (Guanfacine Hcl 1 Mg Tablet (Non-Formulary)) 2 mg PO HS ROBERT Stop: 04/08/25 20:59 Heparin Sodium (Porcine) (Heparin Sod Inj 5000 Unit/Ml Vial) 5,000 unit SC BID ROBERT Stop: 03/23/25 08:59 Last Admin: 03/09/25 08:16 Dose: 5,000 unit Hydralazine HCl (Hydralazine Hcl 25 Mg Tablet) 100 mg PO BID ROBERT Stop: 04/07/25 22:09 Last Admin: 03/09/25 08:23 Dose: Not Given Hydrochlorothiazide (Hydrochlorothiazide 12.5 Mg Capsule) 25 mg PO BID ROBERT Stop: 04/08/25 08:59 Last Admin: 03/09/25 08:15 Dose: 25 mg Meropenem 1,000 mg/ Sodium (Chloride) 50 mls @ 100 mls/hr IV Q8HR ROBERT Stop: 03/15/25 21:59 Last Admin: 03/09/25 14:17 Dose: 100 mls/hr Labetalol HCl (Labetalol 100 Mg Tablet) 200 mg PO BID ROBERT Stop: 04/07/25 21:59 Last Admin: 03/09/25 08:16 Dose: 200 mg Levothyroxine Sodium (Levothyroxine Sodium 100 Mcg Tablet) 150 mcg PO ACBR ROBERT Stop: 04/08/25 05:59 Last Admin: 03/09/25 05:54 Dose: 150 mcg Nifedipine (Nifedipine Xl 30 Mg Tabcr) 30 mg PO BID ROBERT Stop: 04/07/25 21:59 Last Admin: 03/09/25 08:16 Dose: 30 mg Nitroglycerin (Nitroglycerin 0.4 Mg Subl Btl #25) 0.4 mg SL Q5MIN PRN PRN Reason: CHEST PAIN Non-Formulary Medication (Fenofibrate) 160 mg PO DAILY ROBERT Stop: 04/08/25 08:59 Ondansetron HCl (Ondansetron Inj 2 Mg/Ml Inj 2 Ml) 4 mg IVP Q6H PRN; Protocol PRN Reason: NAUSEA OR VOMITING Stop: 04/07/25 20:42 Pantoprazole Sodium (Pantoprazole 40 Mg Tablet) 40 mg PO QDAY ROBERT; Protocol Stop: 04/08/25 08:59 Last Admin: 03/09/25 08:16 Dose: 40 mg Pravastatin Sodium (Pravastatin Sodium 10 Mg Tablet) 80 mg PO HS ROBERT Stop: 04/08/25 20:59 Tizanidine HCl (Tizanidine Hcl 2 Mg Tablet) 4 mg PO HS PRN PRN Reason: Muscle Spasticity Stop: 04/07/25 20:54 Vitamin B Complex/Vit C/Folic Acid (Vit B12/Vit C/Fa (Nephrovite) Tablet) 1 tab PO QDAY ROBERT Stop: 04/08/25 08:59 Last Admin: 03/09/25 08:16 Dose: 1 tab Discontinued Medications Hydrocodone Bitart/Acetaminophen (Hydrocodone/Apap 10/325 Tab) 1 tab PO Q4H PRN PRN Reason: PAIN Stop: 03/13/25 20:54 Heparin Sodium (Beef Lung) (Heparin Sod Lock Syr 100 Unit/Ml) 500 unit IV X1 ONE Stop: 03/09/25 13:11 Last Admin: 03/09/25 13:10 Dose: 500 unit Hydralazine HCl (Hydralazine Hcl 25 Mg Tablet) 100 mg PO BID ROBERT Stop: 04/07/25 20:59 Hydralazine HCl (Hydralazine Hcl 25 Mg Tablet) 100 mg PO BID ROBERT Stop: 04/07/25 20:59 Magnesium Sulfate (Magnesium Sulfate Ivpb) 4 gm in 50 mls @ 12.5 mls/hr IV X1 ONE Stop: 03/09/25 12:11 Last Admin: 03/09/25 09:44 Dose: 12.5 mls/hr Lidocaine HCl (Lidocaine Inj Pf 1% 30 Ml Vial) 30 ml INFL X1 ONE Stop: 03/09/25 13:11 Last Admin: 03/09/25 13:10 Dose: 3 ml Pantoprazole Sodium (Pantoprazole Inj 40 Mg Vial) 40 mg IVP QDAY ROBERT Stop: 04/07/25 20:44 Last Admin: 03/08/25 22:11 Dose: 40 mg Potassium Chloride (Potassium Chloride 20 Meq Tabcr) 20 meq PO X1 ONE Stop: 03/09/25 08:13 Last Admin: 03/09/25 09:44 Dose: 20 meq Assessment & Plan Plan 74-year-old female with past medical history of resistant hypertension, hyperlipidemia, mitral stenosis, hypothyroidism, CKD stage IIIb, recurrent UTIs, anxiety depression, chronic pain presenting with burning with urination and dysuria. Admitted for UTI after failing outpatient therapy as well as management of resistant hypertension. #Resistant hypertension #Hyperlipidemia #Angina pectoralis Coming to a different hospital with a systolic blood pressure of 229, was not given her home medications patient left AMA and came to our institution. History of resistant hypertension and angina pectoralis with complete negative workup. She is on multiple home anti-hypertensives, managed by cardiology, Dr. Farfan. She states blood pressure usually runs in the 220s systolic at night and she becomes symptomatic with severe headache and nausea. Angina pectoralis managed with nitroglycerin. Currently denies headache, chest pain, palpitations or shortness of breath. ? Resume labetalol 200 mg twice daily ? Resume nifedipine 30 mg twice daily ? Resume hydrochlorothiazide 25 mg twice daily ? Resume guanfacine 2 mg p.o. at bedtime ? Resume hydralazine 100 mg p.o. twice daily hold if systolic blood pressure less than 150 ? Continue home pravastatin 40 mg daily ? Continue home fenofibrate 160 mg daily ? Continue nitroglycerin SL PRN for chest pain #Complicated UTI secondary to ESBL Klebsiella UTI in the setting of bladder prolapse #Recurrent UTI secondary bladder prolapse #CKD stage IIIb #Hypothyroidism #Anxiety/depression #Chronic back pain ? Manage as per IM team Case discussed with my attending Dr. Adolph Leon MD PGY-2 Disclaimer: Despite multiple revisions, due to the dictation software being used, the document bellow may not be free of grammatical errors including phonetic/typographic errors. However, this does not deter from our commitment to providing health care in the patient's best interest in mind.
--- NOTE | 2025-03-09 17:44 | ESPR_ITS ---
<Statement entered by Jason Farfan MD - 03/10/25 10:14> I personally evaluated examined the patient appears to be doing little better today she received antibiotics with meropenem blood pressure controlled well no chest pain shortness reported and overall she is doing much better no fever high white count since she is clinically stable we will try to arrange for home antibiotic therapy for 7 days of antibiotics ID consultation will be obtained as well evaluate patient with resident physician Dr. Brian Leon agree with treatment plan recommendations Documentation for date of: 03/09/25 Subjective Subjective Interval history: Patient seen today at the bedside found awake, alert, orientedx3. No overnight events reported. Vitals and labs reviewed. No active complaints at this time. Patient had PICC line placement today for IV antibiotic. Considering her recurrent UTIs and history of bladder prolapse and various cystoscopies ID and urology consulted. Likely discharge in the next 24-48 hours. Exam Vital Signs Temp Pulse Resp BP Pulse Ox O2 Del Method 98.0 F 63 17 121/48 L 94 L Room Air 03/09/25 16:00 03/09/25 17:38 03/09/25 16:00 03/09/25 16:00 03/09/25 16:00 03/09/25 16:00 Narrative Exam Physical Exam GENERAL: NAD, AAOx3 HEENT: Moist mucosa. Eyes open, symmetrical, & clear CARDIO: Heart RRR, no obvious murmurs PULM: No noted coughing/dyspnea CTA B/L, no R/W/R GI: Abdomen soft, nondistended, no pain on palpation. BSx4 SKIN/MSK/EXT: No wounds/rashes/edema/amputations, no pain on palpation. Pedal pulses present B/L NEURO: AAOx3, no focal neuro deficits, able to move all 4 extremities Objective Labs 03/09/25 04:25 03/09/25 04:25 Labs: Laboratory Results - last 24 hr 03/08/25 03/09/25 03/09/25 21:06 04:25 09:55 WBC 5.9 4.3 RBC 4.21 3.57 L Hgb 12.2 10.4 L Hct 38.6 32.3 L MCV 92 91 MCH 29.0 29.1 MCHC 31.6 32.2 RDW Std Deviation 53.7 H 52.8 H Plt Count 216 200 Neut % (Auto) 57 48 Lymph % (Auto) 31 36 [place] % (Auto) 10 14 H Eos % (Auto) 1 1 Baso % (Auto) 1 1 Neut # (Auto) 3.4 2.1 Lymph # (Auto) 1.8 1.6 [place] # (Auto) 0.6 0.6 Eos # (Auto) 0.1 0.1 Baso # (Auto) 0.0 0.0 Immature Gran # (Auto) 0.03 H 0.01 H Absolute Nucleated RBC 0.00 0.00 Immature Gran % 1 H 0 Nucleated RBC % 0 0 Sodium 144 144 Potassium 3.6 3.9 Chloride 105 108 H Carbon Dioxide 27.8 26.4 Anion Gap 11 10 BUN 24 H 21 Creatinine 1.6 H 1.4 H Estim Creat Clear Calc Not Performed. Not Performed. eGFR 34 L 39 L BUN/Creatinine Ratio 15 15 Glucose 126 H 105 Calculated Osmolality 292 289 Calcium 10.1 9.2 Corrected Calcium 10.1 9.3 Phosphorus 4.7 Magnesium 1.8 1.6 Total Bilirubin 0.3 0.3 AST 26 21 ALT 20 15 Alkaline Phosphatase 37 L 28 L D Total Protein 7.1 5.7 Albumin 4.9 H 3.9 D Globulin 2.2 L 1.8 L Albumin/Globulin Ratio 2.2 2.2 Ur Collection Type Clean Catch Urine Color Yellow Urine Clarity Clear Urine pH 6.0 Ur Specific [place] 1.016 Urine Protein Negative Urine Glucose (UA) Negative Urine Ketones Negative Urine Blood Negative Urine Nitrite Negative Urine Bilirubin Negative Urine Urobilinogen (Auto) Negative Ur Leukocyte Esterase Positive Urine RBC 1 Urine WBC 23 H Ur Squamous Epith Cells 1 Urine Bacteria None Quality Measures Quality Measures VTE prophylaxis Advance care planning discussed with:: patient Assessment & Plan Assessment Current Active Medications: Generic Name Dose Route Start Last Admin Trade Name Freq PRN Reason Stop Dose Admin Acetaminophen 650 mg 03/08/25 20:43 Acetaminophen 325 Mg Tablet PO 04/07/25 20:42 Q6H PRN PAIN SCALE 1-3 (mild Acetaminophen 650 mg 03/08/25 20:43 Acetaminophen 325 Mg Tablet PO 04/07/25 20:42 Q6H PRN Fever >100.4 Hydrocodone Bitart/Acetaminophen 1 tab 03/09/25 02:14 03/09/25 14:23 Hydrocodone/Apap 10/325 Tab PO 03/14/25 02:12 1 tab Q4H PRN Administration Pain 4-10 Diphenhydramine HCl 25 mg 03/08/25 22:07 03/08/25 22:21 Diphenhydramine 25 Mg Capsule PO 04/07/25 22:06 25 mg Q6HR PRN Administration ITCHING Doxepin HCl 50 mg 03/08/25 21:00 03/08/25 22:10 Doxepin Hcl 25 Mg Capsule PO 04/07/25 20:59 50 mg HS ROBERT Administration Gabapentin 300 mg 03/08/25 22:00 03/09/25 14:17 Gabapentin 300 Mg Capsule PO 04/07/25 21:59 300 mg TID ROBERT Administration Guanfacine HCl 2 mg 03/09/25 21:00 Guanfacine Hcl 1 Mg Tablet (Non-Formulary) PO 04/08/25 20:59 HS ROBERT Heparin Sodium (Porcine) 5,000 unit 03/09/25 09:00 03/09/25 08:16 Heparin Sod Inj 5000 Unit/Ml Vial SC 03/23/25 08:59 5,000 unit BID ROBERT Administration Hydralazine HCl 100 mg 03/08/25 22:10 03/09/25 08:23 Hydralazine Hcl 25 Mg Tablet PO 04/07/25 22:09 Not Given BID ROBERT Hydrochlorothiazide 25 mg 03/09/25 09:00 03/09/25 08:15 Hydrochlorothiazide 12.5 Mg Capsule PO 04/08/25 08:59 25 mg BID ROBERT Administration Meropenem 1,000 mg/ Sodium 50 mls @ 100 mls/hr 03/08/25 22:00 03/09/25 14:17 Chloride IV 03/15/25 21:59 100 mls/hr Q8HR ROBERT Administration Labetalol HCl 200 mg 03/08/25 22:00 03/09/25 08:16 Labetalol 100 Mg Tablet PO 04/07/25 21:59 200 mg BID ROBERT Administration Levothyroxine Sodium 150 mcg 03/09/25 06:00 03/09/25 05:54 Levothyroxine Sodium 100 Mcg Tablet PO 04/08/25 05:59 150 mcg ACBR ROBERT Administration Nifedipine 30 mg 03/08/25 22:00 03/09/25 08:16 Nifedipine Xl 30 Mg Tabcr PO 04/07/25 21:59 30 mg BID ROBERT Administration Nitroglycerin 0.4 mg 03/08/25 22:30 Nitroglycerin 0.4 Mg Subl Btl #25 SL Q5MIN PRN CHEST PAIN Non-Formulary Medication 160 mg 03/09/25 09:00 Fenofibrate PO 04/08/25 08:59 DAILY ROBERT Ondansetron HCl 4 mg 03/08/25 20:43 Ondansetron Inj 2 Mg/Ml Inj 2 Ml IVP 04/07/25 20:42 Q6H PRN NAUSEA OR VOMITING Protocol Pantoprazole Sodium 40 mg 03/09/25 09:00 03/09/25 08:16 Pantoprazole 40 Mg Tablet PO 04/08/25 08:59 40 mg QDAY ROBERT Administration Protocol Pravastatin Sodium 80 mg 03/09/25 21:00 Pravastatin Sodium 10 Mg Tablet PO 04/08/25 20:59 HS ROBERT Tizanidine HCl 4 mg 03/08/25 20:55 Tizanidine Hcl 2 Mg Tablet PO 04/07/25 20:54 HS PRN Muscle Spasticity Vitamin B Complex/Vit C/Folic Acid 1 tab 03/09/25 09:00 03/09/25 08:16 Vit B12/Vit C/Fa (Nephrovite) Tablet PO 04/08/25 08:59 1 tab QDAY ROBERT Administration Plan 74-year-old female with past medical history of resistant hypertension, hyperlipidemia, mitral stenosis, hypothyroidism, CKD stage IIIb, recurrent UTIs, anxiety depression, chronic pain presenting with burning with urination and dysuria. Admitted for UTI after failing outpatient therapy as well as management of resistant hypertension. #Resistant hypertension #Hyperlipidemia #Angina pectoralis Coming to a different hospital with a systolic blood pressure of 229, was not given her home medications patient left AMA and came to our institution. History of resistant hypertension and angina pectoralis with complete negative workup. She is on multiple home anti-hypertensives, managed by cardiology, Dr. Farfan. She states blood pressure usually runs in the 220s systolic at night and she becomes symptomatic with severe headache and nausea. Angina pectoralis managed with nitroglycerin. Currently denies headache, chest pain, palpitations or shortness of breath. ? Resume labetalol 200 mg twice daily ? Resume nifedipine 30 mg twice daily ? Resume hydrochlorothiazide 25 mg twice daily ? Resume guanfacine 2 mg p.o. at bedtime ? Resume hydralazine 100 mg p.o. twice daily hold if systolic blood pressure less than 150 ? Continue home pravastatin 40 mg daily ? Continue home fenofibrate 160 mg daily ? Continue nitroglycerin SL PRN for chest pain #Complicated UTI secondary to ESBL Klebsiella UTI in the setting of bladder prolapse #Recurrent UTI secondary bladder prolapse ? PICC line placed, will likely be discharged on erbapenem ? Urology and ID consulted given her multiple UTIs and bladder issues with surgeries. #CKD stage IIIb #Hypothyroidism #Anxiety/depression #Chronic back pain ? Manage as per IM team Case discussed with my attending Dr. Adolph Leon MD PGY-2 Disclaimer: Despite multiple revisions, due to the dictation software being used, the document bellow may not be free of grammatical errors including phonetic/typographic errors. However, this does not deter from our commitment to providing health care in the patient's best interest in mind.
[2025-03-09] MEDS: GUANFACINE HCL 1 MG 2 MG PO (21:20)
[2025-03-09] MEDS: PRAVASTATIN SODIUM 10 MG TABLET 80 MG PO (21:20)
[2025-03-09] MEDS: DOXEPIN HCL 25 MG CAPSULE 50 MG PO (21:22)
[2025-03-10] VITALS (8 sets, daily range): BP systolic 116–129; BP diastolic 46–99; PULSE 48–75; RESP 15–18; TEMP 36.3–36.4; O2SAT 93–98; BMI 28.8
[2025-03-10 06:04] LABS: Basophils # (Auto) 0.0 Thou/mm3 (0.0-0.2); Basophils % (Auto) 1 % (0-2.5); Eosinophils # (Auto) 0.1 Thou/mm3 (0.0-0.5); Eosinophils % (Auto) 1 % (0-10); Hematocrit 32.7 % (36.0-46.0); Hemoglobin 10.4 g/dL (12.0-16.0); Immature Granulocytes Auto 0.02 Thou/mm3 (0.00-0.00); Lymphocytes # (Auto) 1.5 Thou/mm3 (1.0-4.8); Lymphocytes % (Auto) 28 % (10-50); Mean Corpuscular HGB Conc 31.8 g/dl (31.0-37.0); Mean Corpuscular Hemoglobin 29.4 pg (25.0-35.0); Mean Corpuscular Volume 92 fL (80-100); Monocytes # (Auto) 0.5 Thou/mm3 (0.0-0.8); Monocytes % (Auto) 10 % (0-12); Neutrophils # (Auto) 3.1 Thou/mm3 (1.8-7.7); Neutrophils % (Auto) 59 % (37-80); Nucleated Red Blood Cell # 0.00 Thou/mm3 (0.00-0.00); Nucleated Red Blood Cell % 0 /100 WBC (0); Platelet Count 203 Thou/mm3 (140-440); RDW Standard Deviation 53.2 fL (36.4-46.3); Red Blood Count 3.54 Miln/mm3 (4.00-5.20); White Blood Count 5.3 Thou/mm3 (3.6-11.0)
[2025-03-10] MEDS: LEVOTHYROXINE SODIUM 100 MCG TABLET 150 MCG PO (06:17)
[2025-03-10] MEDS: GABAPENTIN 300 MG CAPSULE PO (06:18)
[2025-03-10] MEDS: MEROPENEM INJ 1,000 MG in SODIUM CHLORIDE 0.9% (Popper) 50 ML 100 MG IV (06:18)
[2025-03-10 06:25] LABS: Alanine Aminotransferase 16 U/L (10-49); Albumin, Serum 4.1 gm/dL (3.4-4.8); Albumin/Globulin Ratio 2.2 (1.2-2.2); Alkaline Phosphatase 28 U/L (46-116); Anion Gap 9 (7-16); Aspartate Amino Transferase 20 U/L (0-34); BUN/Creatinine Ratio 18 Ratio (12-20); Bilirubin,Total 0.2 mg/dL (0.3-1.2); Blood Urea Nitrogen 24 mg/dL (9-23); Calcium 9.3 mg/dL (8.3-10.6); Calcium (Corrected) 9.3 mg/dL (8.5-10.1); Carbon Dioxide 28.2 mMol/L (20.0-31.0); Chloride 106 mMol/L (98-107); Creatinine (Component) 1.3 mg/dL (0.6-1.3); Globulin 1.9 gm/dL (2.3-3.5); Glucose 116 mg/dL (74-106); Magnesium 1.8 mg/dL (1.6-2.6); Osmolality,Calculated 289 (275-295); Phosphorous 3.5 mg/dL (2.4-5.1); Potassium 3.6 mMol/L (3.4-5.1); Sodium 143 mMol/L (136-145); Total Protein 6.0 gm/dL (5.7-8.2); eGFR 43 See Note
[2025-03-10] MEDS: LABETALOL 100 MG TABLET 200 MG PO (08:17)
[2025-03-10] MEDS: NIFEdipine XL 30 MG TABCR PO (08:17)
[2025-03-10] MEDS: VIT B12/Vit C/FA (Nephrovite) TABLET 1 TAB PO (08:17)
[2025-03-10] MEDS: PANTOPRAZOLE 40 MG TABLET PO (08:17)
[2025-03-10] MEDS: Magnesium Sulfate 4 GM Ivpb 4 GM/50 ML BAG IV (08:18)
--- NOTE | 2025-03-10 08:55 | PC.NURSE ---
@[id number] Dr Farfan at bedside. Informed him that I was notified by LETTY Baker patient's HR down to [address] Farfan states if patient is on beta natalie and is resting then HR can be low. No new orders received.
--- NOTE | 2025-03-10 09:04 | ESPR_ITS ---
Subjective Subjective Interval history: 74 y/o with hx as noted by others. bladder prolapse noted. Exam Vital Signs Temp Pulse Resp BP Pulse Ox O2 Del Method 97.5 F 57 L 16 124/99 H 93 L Room Air 03/10/25 04:00 03/10/25 08:17 03/10/25 04:00 03/10/25 08:17 03/10/25 04:00 03/10/25 04:00 Narrative Exam benign exam. no back pain currently and mild supra pubic discomfort as main sx Objective - Internal Medicine Labs 03/10/25 05:30 03/10/25 05:30 Labs: Laboratory Results - last 24 hr 03/09/25 03/10/25 09:55 05:30 WBC 5.3 RBC 3.54 L Hgb 10.4 L Hct 32.7 L MCV 92 MCH 29.4 MCHC 31.8 RDW Std Deviation 53.2 H Plt Count 203 Neut % (Auto) 59 Lymph % (Auto) 28 [place] % (Auto) 10 Eos % (Auto) 1 Baso % (Auto) 1 Neut # (Auto) 3.1 Lymph # (Auto) 1.5 [place] # (Auto) 0.5 Eos # (Auto) 0.1 Baso # (Auto) 0.0 Immature Gran # (Auto) 0.02 H Absolute Nucleated RBC 0.00 Immature Gran % 0 Nucleated RBC % 0 Sodium 143 Potassium 3.6 Chloride 106 Carbon Dioxide 28.2 Anion Gap 9 BUN 24 H Creatinine 1.3 Estim Creat Clear Calc Not Performed. eGFR 43 L BUN/Creatinine Ratio 18 Glucose 116 H Calculated Osmolality 289 Calcium 9.3 Corrected Calcium 9.3 Phosphorus 3.5 Magnesium 1.8 Total Bilirubin 0.2 L AST 20 ALT 16 Alkaline Phosphatase 28 L Total Protein 6.0 Albumin 4.1 Globulin 1.9 L Albumin/Globulin Ratio 2.2 Ur Collection Type Clean Catch Urine Color Yellow Urine Clarity Clear Urine pH 6.0 Ur Specific [place] 1.016 Urine Protein Negative Urine Glucose (UA) Negative Urine Ketones Negative Urine Blood Negative Urine Nitrite Negative Urine Bilirubin Negative Urine Urobilinogen (Auto) Negative Ur Leukocyte Esterase Positive Urine RBC 1 Urine WBC 23 H Ur Squamous Epith Cells 1 Urine Bacteria None Assessment & Plan A&P Narrative recurrent uti prior hyster bso at age 25 try fosfomycin3 gm q 3d x 3 and vaginal [id number] per week home ok. no prior fosfomycin exposure noted. Time Spent With Patient Time: Total time spent is greater than 50% in coordination of care (as documented) at patient's floor/unit and/or counseling patient:
--- NOTE | 2025-03-10 09:16 | ESPR_ITS ---
<Statement entered by Jason Farfan MD - 03/13/25 12:23> I personally examined reviewed the patient appears to be doing better clinically no signs of sepsis or infection patient does have urinary infection with ESBL Klebsiella sensitive to meropenem will be discharged home when she is stable on oral IV dose of meropenem or equivalent medication with home health nurse getting medications at home. Evaluated patient with resident physician PGY 2 Dr. Brian Leon evaluated patient and agree with the treatment plan recommendation as documented by resident physician Documentation for date of: 03/10/25 Subjective Subjective Interval history: Patient seen today at the bedside found awake, alert, orientedx3. No overnight events reported. Vitals and labs reviewed. Patient has PICC line in place will complete 7-day antibiotic with ertapenem which is once a day. Infectious disease was consulted will appreciate recommendations, urology also consulted however patient can likely follow-up with urology as an outpatient for her bladder prolapse. Exam Vital Signs Temp Pulse Resp BP Pulse Ox O2 Del Method 97.5 F 56 L 16 124/99 H 93 L Room Air 03/10/25 04:00 03/10/25 09:07 03/10/25 04:00 03/10/25 08:17 03/10/25 04:00 03/10/25 04:00 Narrative Exam Physical Exam GENERAL: NAD, AAOx3 HEENT: Moist mucosa. Eyes open, symmetrical, & clear CARDIO: Heart RRR, no obvious murmurs PULM: No noted coughing/dyspnea CTA B/L, no R/W/R GI: Abdomen soft, nondistended, no pain on palpation. BSx4 SKIN/MSK/EXT: No wounds/rashes/edema/amputations, no pain on palpation. Pedal pulses present B/L NEURO: AAOx3, no focal neuro deficits, able to move all 4 extremities Objective Labs 03/10/25 05:30 03/10/25 05:30 Labs: Laboratory Results - last 24 hr 03/09/25 03/10/25 09:55 05:30 WBC 5.3 RBC 3.54 L Hgb 10.4 L Hct 32.7 L MCV 92 MCH 29.4 MCHC 31.8 RDW Std Deviation 53.2 H Plt Count 203 Neut % (Auto) 59 Lymph % (Auto) 28 [place] % (Auto) 10 Eos % (Auto) 1 Baso % (Auto) 1 Neut # (Auto) 3.1 Lymph # (Auto) 1.5 [place] # (Auto) 0.5 Eos # (Auto) 0.1 Baso # (Auto) 0.0 Immature Gran # (Auto) 0.02 H Absolute Nucleated RBC 0.00 Immature Gran % 0 Nucleated RBC % 0 Sodium 143 Potassium 3.6 Chloride 106 Carbon Dioxide 28.2 Anion Gap 9 BUN 24 H Creatinine 1.3 Estim Creat Clear Calc Not Performed. eGFR 43 L BUN/Creatinine Ratio 18 Glucose 116 H Calculated Osmolality 289 Calcium 9.3 Corrected Calcium 9.3 Phosphorus 3.5 Magnesium 1.8 Total Bilirubin 0.2 L AST 20 ALT 16 Alkaline Phosphatase 28 L Total Protein 6.0 Albumin 4.1 Globulin 1.9 L Albumin/Globulin Ratio 2.2 Ur Collection Type Clean Catch Urine Color Yellow Urine Clarity Clear Urine pH 6.0 Ur Specific [place] 1.016 Urine Protein Negative Urine Glucose (UA) Negative Urine Ketones Negative Urine Blood Negative Urine Nitrite Negative Urine Bilirubin Negative Urine Urobilinogen (Auto) Negative Ur Leukocyte Esterase Positive Urine RBC 1 Urine WBC 23 H Ur Squamous Epith Cells 1 Urine Bacteria None Quality Measures Quality Measures VTE prophylaxis Advance care planning discussed with:: patient Assessment & Plan Assessment Current Active Medications: Generic Name Dose Route Start Last Admin Trade Name Freq PRN Reason Stop Dose Admin Acetaminophen 650 mg 03/08/25 20:43 Acetaminophen 325 Mg Tablet PO 04/07/25 20:42 Q6H PRN PAIN SCALE 1-3 (mild Acetaminophen 650 mg 03/08/25 20:43 Acetaminophen 325 Mg Tablet PO 04/07/25 20:42 Q6H PRN Fever >100.4 Hydrocodone Bitart/Acetaminophen 1 tab 03/09/25 02:14 03/09/25 14:23 Hydrocodone/Apap 10/325 Tab PO 03/14/25 02:12 1 tab Q4H PRN Administration Pain 4-10 Diphenhydramine HCl 25 mg 03/08/25 22:07 03/08/25 22:21 Diphenhydramine 25 Mg Capsule PO 04/07/25 22:06 25 mg Q6HR PRN Administration ITCHING Doxepin HCl 50 mg 03/08/25 21:00 03/09/25 21:22 Doxepin Hcl 25 Mg Capsule PO 04/07/25 20:59 50 mg HS ROBERT Administration Gabapentin 300 mg 03/08/25 22:00 03/10/25 06:18 Gabapentin 300 Mg Capsule PO 04/07/25 21:59 300 mg TID ROBERT Administration Guanfacine HCl 2 mg 03/09/25 21:00 03/09/25 21:20 Guanfacine Hcl 1 Mg Tablet (Non-Formulary) PO 04/08/25 20:59 2 mg HS ROBERT Administration Heparin Sodium (Porcine) 5,000 unit 03/09/25 09:00 03/10/25 08:18 Heparin Sod Inj 5000 Unit/Ml Vial SC 03/23/25 08:59 Not Given BID ROBERT Hydralazine HCl 100 mg 03/08/25 22:10 03/10/25 08:07 Hydralazine Hcl 25 Mg Tablet PO 04/07/25 22:09 Not Given BID ROBERT Hydrochlorothiazide 25 mg 03/09/25 09:00 03/10/25 08:17 Hydrochlorothiazide 12.5 Mg Capsule PO 04/08/25 08:59 25 mg BID ROBERT Administration Magnesium Sulfate 4 gm in 50 mls @ 12.5 mls/hr 03/10/25 08:04 03/10/25 08:18 Magnesium Sulfate Ivpb IV 03/10/25 12:03 12.5 mls/hr X1 ONE Administration Piperacillin Sod/Tazobactam 100 mls @ 200 mls/hr 03/10/25 14:00 Sod 4.5 gm/ Sodium Chloride IV 03/17/25 13:59 Q8HR [facility] Protocol Labetalol HCl 200 mg 03/08/25 22:00 03/10/25 08:17 Labetalol 100 Mg Tablet PO 04/07/25 21:59 200 mg BID ROBERT Administration Levothyroxine Sodium 150 mcg 03/09/25 06:00 03/10/25 06:17 Levothyroxine Sodium 100 Mcg Tablet PO 04/08/25 05:59 150 mcg ACBR ROBERT Administration Nifedipine 30 mg 03/08/25 22:00 03/10/25 08:17 Nifedipine Xl 30 Mg Tabcr PO 04/07/25 21:59 30 mg BID ROBERT Administration Nitroglycerin 0.4 mg 03/08/25 22:30 Nitroglycerin 0.4 Mg Subl Btl #25 SL Q5MIN PRN CHEST PAIN Non-Formulary Medication 160 mg 03/09/25 09:00 Fenofibrate PO 04/08/25 08:59 DAILY ROBERT Ondansetron HCl 4 mg 03/08/25 20:43 Ondansetron Inj 2 Mg/Ml Inj 2 Ml IVP 04/07/25 20:42 Q6H PRN NAUSEA OR VOMITING Protocol Pantoprazole Sodium 40 mg 03/09/25 09:00 03/10/25 08:17 Pantoprazole 40 Mg Tablet PO 04/08/25 08:59 40 mg QDAY ROBERT Administration Protocol Pravastatin Sodium 80 mg 03/09/25 21:00 03/09/25 21:20 Pravastatin Sodium 10 Mg Tablet PO 04/08/25 20:59 80 mg HS ROBERT Administration Tizanidine HCl 4 mg 03/08/25 20:55 Tizanidine Hcl 2 Mg Tablet PO 04/07/25 20:54 HS PRN Muscle Spasticity Vitamin B Complex/Vit C/Folic Acid 1 tab 03/09/25 09:00 03/10/25 08:17 Vit B12/Vit C/Fa (Nephrovite) Tablet PO 04/08/25 08:59 1 tab QDAY ROBERT Administration Plan 74-year-old female with past medical history of resistant hypertension, hyperlipidemia, mitral stenosis, hypothyroidism, CKD stage IIIb, recurrent UTIs, anxiety depression, chronic pain presenting with burning with urination and dysuria. Admitted for UTI after failing outpatient therapy as well as management of resistant hypertension. #Resistant hypertension #Hyperlipidemia #Angina pectoralis Coming to a different hospital with a systolic blood pressure of 229, was not given her home medications patient left AMA and came to our institution. History of resistant hypertension and angina pectoralis with complete negative workup. She is on multiple home anti-hypertensives, managed by cardiology, Dr. Farfan. She states blood pressure usually runs in the 220s systolic at night and she becomes symptomatic with severe headache and nausea. Angina pectoralis managed with nitroglycerin. Currently denies headache, chest pain, palpitations or shortness of breath. ? Resume labetalol 200 mg twice daily ? Resume nifedipine 30 mg twice daily ? Resume hydrochlorothiazide 25 mg twice daily ? Resume guanfacine 2 mg p.o. at bedtime ? Resume hydralazine 100 mg p.o. twice daily hold if systolic blood pressure less than 150 ? Continue home pravastatin 40 mg daily ? Continue home fenofibrate 160 mg daily ? Continue nitroglycerin SL PRN for chest pain #Complicated UTI secondary to ESBL Klebsiella UTI in the setting of bladder prolapse #Recurrent UTI secondary bladder prolapse ? PICC line placed, will likely be discharged on ertapenem ? Urology and ID consulted given her multiple UTIs and bladder issues with surgeries. #CKD stage IIIb #Hypothyroidism #Anxiety/depression #Chronic back pain ? Manage as per IM team Case discussed with my attending Dr. Adolph Leon MD PGY-2 Disclaimer: Despite multiple revisions, due to the dictation software being used, the document bellow may not be free of grammatical errors including phonetic/typographic errors. However, this does not deter from our commitment to providing health care in the patient's best interest in mind.
--- NOTE | 2025-03-10 09:42 | XR_ITS ---
Examination: Retroperitoneal ultrasound, complete Technique: Multiple high resolution grayscale images of the retroperitoneum obtained, including kidneys and bladder. Exam date and time:March 10, 2025, 1122 hours INDICATIONS: History urinary tract infections beginning 3 months ago FINDINGS: Right kidney 9.5 cm cortex 1.3 cm Left kidney 9.7 cm cortex 1.2 cm Mild renal scarring No hydronephrosis Contracted urinary bladder IMPRESSION: Small kidneys with bilateral renal cortical thinning Mild renal scarring No hydronephrosis
--- NOTE | 2025-03-10 09:50 | PC.NURSE ---
Patient to CT via gurney in stable condition.
[2025-03-10 10:45] LABS: Hepatitis C Antibody Non Reactive (Non React)
[2025-03-10] MEDS: FOSFOMYCIN PWD 3 GM PACKET (NON-FORMULARY) PO (10:57)
[2025-03-10] MEDS: ESTROGENS,CONJ VAG CR 30 GM TUBE VAGINAL (10:57)
--- NOTE | 2025-03-10 11:23 | ESCONSULT_ITS ---
RE: DEVYN OLIVIER : 1950 DATE OF CONSULTATION: 03/09/2025 REFERRING PHYSICIAN: Dr. Farfan. REASON FOR CONSULTATION: Apparent UTI with more of a cystitis with history of bladder prolapse of uncertain significance and multiple bladder surgeries at outside hospitals for many years. PAST MEDICAL HISTORY: Her medical problems include hypertension, urinary incontinence, and prior hysterectomy and BSO done at age 25. She has never tried vaginal estrogen cream and it probably is timely to do that. Her UA shows only 35 white cells, not very many. I [facility] and they have blood cultures that are negative at 48 hours on 03/07/2025 and she did relatively well here with urine culture pending from last night and blood cultures were negative overnight at 2106 on 03/08/2025. She did well for about a day without any antibiotics at all. Her creatinine was 1.6 on arrival and is down to 1.3 with hydration. Urine shows 23 white cells, not very striking. Culture is pending, but the lab here cultures all urine, so it is hard to know with that significance. Apparently, her urine grew ESBL producing Klebsiella that was resistant to all antibiotics. She has never tried fosfomycin or vaginal estrogen. She will try both of those together. PAST SURGICAL HISTORY: Her surgical history includes multiple bladder surgeries, about 10, according to the patient, 4 surgeries on her right hip, and a left knee replacement done in the past at [place]. The right hip was done 4 times. The second time was for infection. The third and fourth times were for other problems. She has had multiple other surgeries including neck surgery, gallbladder surgery, again prior hysterectomy and BSO at age 25. She has had some sort of vaginal mass that turned out to be benign followed by bleeding repeatedly resulting in the surgery as mentioned. She has had no cycle since then, she has not tried vaginal estrogen as mentioned. ALLERGIES: NONE NOTED. IMMUNIZATIONS: Last tetanus is not known. She does take a flu shot. She has had 3 COVID vaccines and has had pneumococcal vaccine as well. FAMILY HISTORY: Family history is positive for diabetes in her father. She is not noted to be diabetic. The blood glucose is occasionally mildly elevated. SOCIAL HISTORY: She lives at home with her . She is a nonsmoker and I did not asked about work history. I assume She may be retired as she is 74 and he is probably a bit older. PHYSICAL EXAMINATION: ABDOMEN: The patient has a benign abdomen. There is no CVA tenderness grossly and the patient did not complain of any back pain. She has a bad back according to her and so, imaging of the back was not done. RECOMMENDATIONS: We will get some renal imaging before she goes to make sure that there is no obstruction. There is a prior MRI noted in the past. She will probably go home. I am going to change her to fosfomycin 3 g twice a week every 3 days. The system does not let me do that, so I am going to go with twice a week for 3 doses total. The first dose before she leaves and the second and third dose will be later. The vaginal estrogen cream is tried every twice a week for about 3-6 months. If it works and she has no problems with it, then she may continue it indefinitely. There is association with systemic estrogen and female cancers, but she has no history of cancer and she is 74 years old and this is not a systemic, but a topical treatment for which there was very little absorption. I have no objection given her vaginal issues also on the internal medicine boards. I will check on her moving forward Thursday if she remains, but if she goes home, I have no objections. DT: 09:37:12 TT: 10:06:00 Ref: [id number] - TID: [id number] MTDD
[2025-03-10] MEDS: FENOFIBRATE 160 MG TABLET PO (11:57)
--- NOTE | 2025-03-10 12:19 | PC.CM ---
Received HH order for IV ABTs, referral sent to out via [employer], pending responses at this time.
--- NOTE | 2025-03-10 12:22 | ESCONSULT_ITS ---
<Statement entered by Enoc Darby MD - 03/12/25 17:20> [facility]. all findings confirmed. see my note for additional findings HPI Data of Consult Requesting Physician: Derik Saeed DO Admitting Provider: Jason Farfan MD Attending Provider: Derik Saeed DO Primary Care Provider: Kim Edwards MD Consult Narrative History of present illness: The patient is a 74-year-old female with significant past medical history of resistant hypertension, hyperlipidemia, angina pectoralis, mitral valve stenosis, hypothyroidism, CKD stage IIIb, and recurrent UTI for past 30 years, with more than 10 bladder surgeries, anxiety/depression, chronic pain, presented with chief complaint of dysuria and nausea on 03/08/2025. She reported associated fever 3 days ago. 1 day before presentation the patient had visited [facility], for similar urinary symptoms, and received 1 dose of meropenem in the ED, and was admitted to inpatient service, but meropenem was out of stock when she decided to leave [facility]. Urine cultures drawn over there revealed ESBL Klebsiella pneumonia, sensitive to carbapenem only. The patient never underwent treatment with fosfomycin or vaginal estrogen. During my evaluation, patient reported mild dysuria, and lower abdominal pain, but denied any fever or chills, nausea or vomiting, headache, chest pain, SOB, orthopnea or PND, or any leg swelling. During my evaluation, her vitals were significant for BP 124/99, with other vitals WNL. Labs revealed white count 5.3, hemoglobin 10.4, creatinine 1.3, GFR 43, with other chemistry panel fairly stable. Hepatitis C nonreactive. UA significant for white count of 23, leukocyte esterase positive. Blood culture recently done on 03/07/2025 has been negative so far, called micro lab there and confirmed it. PMH: As mentioned above Surgical history: Right hip replacement x 4, left knee replacement x 1, multiple bladder surgeries and cystoplasty, hysterectomy with bilateral oophorectomy at age 25, cholecystectomy Family history: Significant for hypertension and diabetes mellitus in father Social history: Born and raised in [place], has 2 children, occasional alcoholic drinking, no tobacco or illicit drug use Allergies: No known allergies Infectious disease consultation was done for further management of ESBL Klebsiella UTI only sensitive to carbapenems at [facility]. cc:: cc: Derik Saeed DO Review of Systems Review of Systems Systems Reviewed: All systems reviewed, normal except as documented (Above) Exam Vital Signs Temp Pulse Resp BP Pulse Ox O2 Del Method 97.4 F 70 15 124/99 H 98 Room Air 03/10/25 08:00 03/10/25 11:43 03/10/25 08:00 03/10/25 08:17 03/10/25 08:00 03/10/25 08:00 Narrative Exam General: No acute distress, Alert and Oriented x 3 HEENT: Moist mucous membranes, oropharynx clear Neck: Supple, No masses, No JVD CVS: S1S2 Regular rate and rhythm, No murmurs, rubs or gallops Lungs: Clear to auscultation with no accessory use, no wheeze no rhonchi Abd: Soft, mild tenderness over lower pelvic region, +BS, no organomegaly Ext: No edema, warm and well perfused Skin: No rash Psych: Appropriate mood and affect Results Labs 03/10/25 05:30 03/10/25 05:30 Labs: Short CBC 03/10/25 Range/Units 05:30 WBC 5.3 (3.6-11.0) Thou/mm3 Hgb 10.4 L (12.0-16.0) g/dL Hct 32.7 L (36.0-46.0) % Plt Count 203 (140-440) Thou/mm3 BMP 03/10/25 05:30 Sodium 143 Potassium 3.6 Chloride 106 Carbon Dioxide 28.2 BUN 24 H Creatinine 1.3 Glucose 116 H Calcium 9.3 Liver Function 03/10/25 Range/Units 05:30 Total Bilirubin 0.2 L (0.3-1.2) mg/dL AST 20 (0-34) U/L ALT 16 (10-49) U/L Alkaline Phosphatase 28 L (46-116) U/L Albumin 4.1 (3.4-4.8) gm/dL Quality Measures Quality Measures VTE prophylaxis Advance care planning discussed with:: patient Medications Home Medications and Allergies Home Medications ?Medication ?Instructions ?Recorded ?Confirmed ?Type doxepin 50 mg capsule 50 mg PO HS 03/08/25 5 History fenofibrate 160 mg tablet 160 mg PO DAILY 03/08/25 History gabapentin 300 mg capsule 300 mg PO TID 03/08/2503/08 History guanfacine 2 mg tablet 2 mg PO HS 03/08/25 03/08/25 History hydralazine 100 mg tablet 100 mg PO BID 03/08/2503/08 History hydrochlorothiazide 25 mg tablet 25 mg PO BID 03/08/25 03/08/25 History hydrocodone 10 mg-acetaminophen 1 tab PO Q4H PRN pain 03/08/25 03/08/25 History 325 mg tablet labetalol 200 mg tablet 200 mg PO BID 03/08/2503/08 History levothyroxine 150 mcg tablet 150 mcg PO DAILY 03/08/25 03/08/25 History nifedipine 30 mg tablet,extended 30 mg PO BID 03/08/25 03/08/25 History release ondansetron 4 mg disintegrating 4 mg PO Q8H PRN nausea and vomiting 03/08/25 03/08/25 History tablet pravastatin 80 mg tablet 80 mg PO HS 03/08/25 5 History tizanidine 4 mg capsule 4 mg PO HS PRN muscle spasti city 03/08/25 03/08/25 History Allergies Allergy/AdvReac Type Severity Reaction Status Date / Time No Known Allergies Allergy Verified 03/08/25 20:55 Visit Medications Acetaminophen (Acetaminophen 325 Mg Tablet) 650 mg PO Q6H PRN PRN Reason: PAIN SCALE 1-3 (mild Stop: 04/07/25 20:42 Acetaminophen (Acetaminophen 325 Mg Tablet) 650 mg PO Q6H PRN PRN Reason: Fever >100.4 Stop: 04/07/25 20:42 Hydrocodone Bitart/Acetaminophen (Hydrocodone/Apap 10/325 Tab) 1 tab PO Q4H PRN PRN Reason: Pain 4-10 Stop: 03/14/25 02:12 Last Admin: 03/09/25 14:23 Dose: 1 tab Fenofibrate 160 Mg (Tablet) 0 ea PO QDAY ROBERT Stop: 04/09/25 11:59 Last Admin: 03/10/25 11:57 Dose: 1 tablet Diphenhydramine HCl (Diphenhydramine 25 Mg Capsule) 25 mg PO Q6HR PRN PRN Reason: ITCHING Stop: 04/07/25 22:06 Last Admin: 03/08/25 22:21 Dose: 25 mg Doxepin HCl (Doxepin Hcl 25 Mg Capsule) 50 mg PO HS ROBERT Stop: 04/07/25 20:59 Last Admin: 03/09/25 21:22 Dose: 50 mg Fosfomycin Tromethamine (Fosfomycin Pwd 3 Gm Packet (Non-Formulary)) 3 gm PO 2 X WEEKLY ROBERT Stop: 03/17/25 09:44 Last Admin: 03/10/25 10:57 Dose: 3 gm Gabapentin (Gabapentin 300 Mg Capsule) 300 mg PO TID ROBERT Stop: 04/07/25 21:59 Last Admin: 03/10/25 06:18 Dose: 300 mg Guanfacine HCl (Guanfacine Hcl 1 Mg Tablet (Non-Formulary)) 2 mg PO HS ROBERT Stop: 04/08/25 20:59 Last Admin: 03/09/25 21:20 Dose: 2 mg Heparin Sodium (Porcine) (Heparin Sod Inj 5000 Unit/Ml Vial) 5,000 unit SC BID ROBERT Stop: 03/23/25 08:59 Last Admin: 03/10/25 08:18 Dose: Not Given Hydralazine HCl (Hydralazine Hcl 25 Mg Tablet) 100 mg PO BID ROBERT Stop: 04/07/25 22:09 Last Admin: 03/10/25 08:07 Dose: Not Given Hydrochlorothiazide (Hydrochlorothiazide 12.5 Mg Capsule) 25 mg PO BID ROBERT Stop: 04/08/25 08:59 Last Admin: 03/10/25 08:17 Dose: 25 mg Labetalol HCl (Labetalol 100 Mg Tablet) 200 mg PO BID ROBERT Stop: 04/07/25 21:59 Last Admin: 03/10/25 08:17 Dose: 200 mg Levothyroxine Sodium (Levothyroxine Sodium 100 Mcg Tablet) 150 mcg PO ACBR ROBERT Stop: 04/08/25 05:59 Last Admin: 03/10/25 06:17 Dose: 150 mcg Nifedipine (Nifedipine Xl 30 Mg Tabcr) 30 mg PO BID ROBERT Stop: 04/07/25 21:59 Last Admin: 03/10/25 08:17 Dose: 30 mg Nitroglycerin (Nitroglycerin 0.4 Mg Subl Btl #25) 0.4 mg SL Q5MIN PRN PRN Reason: CHEST PAIN Ondansetron HCl (Ondansetron Inj 2 Mg/Ml Inj 2 Ml) 4 mg IVP Q6H PRN; Protocol PRN Reason: NAUSEA OR VOMITING Stop: 04/07/25 20:42 Pantoprazole Sodium (Pantoprazole 40 Mg Tablet) 40 mg PO QDAY ROBERT; Protocol Stop: 04/08/25 08:59 Last Admin: 03/10/25 08:17 Dose: 40 mg Pravastatin Sodium (Pravastatin Sodium 10 Mg Tablet) 80 mg PO HS ROBERT Stop: 04/08/25 20:59 Last Admin: 03/09/25 21:20 Dose: 80 mg Tizanidine HCl (Tizanidine Hcl 2 Mg Tablet) 4 mg PO HS PRN PRN Reason: Muscle Spasticity Stop: 04/07/25 20:54 Vitamin B Complex/Vit C/Folic Acid (Vit B12/Vit C/Fa (Nephrovite) Tablet) 1 tab PO QDAY ROBERT Stop: 04/08/25 08:59 Last Admin: 03/10/25 08:17 Dose: 1 tab Discontinued Medications Hydrocodone Bitart/Acetaminophen (Hydrocodone/Apap 10/325 Tab) 1 tab PO Q4H PRN PRN Reason: PAIN Stop: 03/13/25 20:54 Estrogens Conjugated (Estrogens,Conj Vag Cr 30 Gm Tube) 0 gm VAGINAL X1 ONE Stop: 03/10/25 09:29 Last Admin: 03/10/25 10:57 Dose: 1 appl Heparin Sodium (Beef Lung) (Heparin Sod Lock Syr 100 Unit/Ml) 500 unit IV X1 ONE Stop: 03/09/25 13:11 Last Admin: 03/09/25 13:10 Dose: 500 unit Hydralazine HCl (Hydralazine Hcl 25 Mg Tablet) 100 mg PO BID ROBERT Stop: 04/07/25 20:59 Hydralazine HCl (Hydralazine Hcl 25 Mg Tablet) 100 mg PO BID ROBERT Stop: 04/07/25 20:59 Meropenem 1,000 mg/ Sodium (Chloride) 50 mls @ 100 mls/hr IV Q8HR ROBERT Stop: 03/15/25 21:59 Last Admin: 03/10/25 06:18 Dose: 100 mls/hr Magnesium Sulfate (Magnesium Sulfate Ivpb) 4 gm in 50 mls @ 12.5 mls/hr IV X1 ONE Stop: 03/09/25 12:11 Last Admin: 03/09/25 09:44 Dose: 12.5 mls/hr Magnesium Sulfate (Magnesium Sulfate Ivpb) 4 gm in 50 mls @ 12.5 mls/hr IV X1 ONE Stop: 03/10/25 12:03 Last Admin: 03/10/25 08:18 Dose: 12.5 mls/hr Piperacillin Sod/Tazobactam (Sod 4.5 gm/ Sodium Chloride) 100 mls @ 200 mls/hr IV Q8HR ROBERT; Protocol Stop: 03/17/25 13:59 Lidocaine HCl (Lidocaine Inj Pf 1% 30 Ml Vial) 30 ml INFL X1 ONE Stop: 03/09/25 13:11 Last Admin: 03/09/25 13:10 Dose: 3 ml Non-Formulary Medication (Fenofibrate) 160 mg PO DAILY ROBERT Stop: 04/08/25 08:59 Pantoprazole Sodium (Pantoprazole Inj 40 Mg Vial) 40 mg IVP QDAY ROBERT Stop: 04/07/25 20:44 Last Admin: 03/08/25 22:11 Dose: 40 mg Potassium Chloride (Potassium Chloride 20 Meq Tabcr) 20 meq PO X1 ONE Stop: 03/09/25 08:13 Last Admin: 03/09/25 09:44 Dose: 20 meq Potassium Chloride (Potassium Chloride 20 Meq Tabcr) 40 meq PO X1 ONE Stop: 03/10/25 08:04 Last Admin: 03/10/25 08:16 Dose: 40 meq Assessment & Plan Plan The patient is a 74-year-old female with significant past medical history of resistant hypertension, hyperlipidemia, angina pectoralis, mitral valve stenosis, hypothyroidism, CKD stage IIIb, and recurrent UTI for past 30 years, with more than 10 bladder surgeries, anxiety/depression, chronic pain, presented with chief complaint of dysuria and nausea on 03/08/2025. Infectious disease consultation was done for further management of ESBL Klebsiella UTI only sensitive to carbapenems at [facility]. #ESBL and MDR Klebsiella pneumonia UTI She reported associated fever 3 days before presentation to hospital. 1 day before presentation the patient had visited [facility], for similar urinary symptoms, and received 1 dose of meropenem in the ED, and was admitted to inpatient service, but meropenem was out of stock when she decided to leave [facility]. Urine cultures drawn over there revealed ESBL Klebsiella pneumonia, sensitive to carbapenem only. UA significant for white count of 23, leukocyte esterase positive. However, no fever since admission, and white count has always been stable. - Urine culture sensitivity for fosfomycin ordered - Started on fosfomycin 3 g every 3-day for total 3 doses. The patient never underwent treatment with fosfomycin, so most likely it should be sensitive. Fosfomycin prophylaxis with 3 g every 4 to 5 days for about 3 to 12 months can be considered, in the setting of recurrent UTI for past 30 years. - Vaginal estrogen cream 1 g twice weekly to be continued, in the setting of patient having frequent urinary tract infection for about past 30 years - Discontinued meropenem - Blood culture has been negative for 24 hours, and urine culture pending #Resistant hypertension #Hypothyroidism #Depression/anxiety #Hyperlipidemia #Angina pectoralis #CKD stage IIIb - Management deferred to primary hospitalist team Thank you for your opportunity to participate in this patient care. We will follow-up on this patient on Thursday morning if patient is still here. The patient's management plan was discussed with my attending physician MD Edwin Huertas MD, PGY3
--- NOTE | 2025-03-10 13:02 | PD.RESDS ---
Planned Discharge Date 03/10/25 DS: Providers Provider Date of admission: 03/08/25 18:54 Primary care physician: Kim Edwards MD Admitting Provider: Jason Farfan MD Attending Provider on Admission: Derik Saeed DO Consults: 03/08/25 20:24 Consult to Adult Hospitalist Routine Comment: Consulting Provider: Derik Saeed 03/09/25 19:24 Consult to Infectious Diseases Stat Comment: Consulting Provider: Enoc Darby Consult to Urology Routine Comment: recurrent uti bladder prolapse Consulting Provider: Jennifer Moreno 03/09/25 19:25 Consult to Infectious Diseases Stat Comment: Complicated UTI, cannot do IV Abx at home Consulting Provider: Enoc Darby Attending Provider on DC: Derik Saeed DO Discharging Provider: Nilam Bennett DO DS: Diagnosis Problem List Completed Was Problem List Reviewed/Reconciled?: Yes Hospital Course Hospital Course Hospital course: Summary: Patient is a 74-year-old female with past medical history of persistent HTN, HLD, angina pectoralis, mitral valve stenosis, hypothyroidism, CKD stage IIIB, recurrent UTIs, anxiety/depression, chronic pain, who was transferred on 03/09 from [facility] for ESBL UTI. Treated with IV meropenem starting 03/08. Has history of recurrent UTIs that have only been treated orally. Patient was agreeable to be discharged with IV erbapenem via PICC line. Will be discharged home with home health. Discharge Recommendations: Follow up with [employer] Dr. Farfan within 1-2 weeks of discharge please finish your antibiotic therapy Ertapenem 1gm daily until you complete 7 days Please follow up with PCP Dr. Edwards within 1 week of discharge Should any symptoms recur or worsen patient is instructed to return to the ED. Hospital Diagnoses: #Complicated ESBL UTI in the setting of bladder prolapse # Hx of recurrent UTIs # Bladder prolapse s/p multiple surgeries #Resistant hypertension #Hyperlipidemia #Angina pectoralis #CKD stage IIIb #Hypothyroidism #Anxiety/depression #Chronic back pain Disposition: Safe discharge to home with home health. Patient plan of care was discussed with the attending physician, Dr. Saeed. Nilam Bennett, PGY-1 Time Spent with Patient Time attestation: Total time spent providing and/or coordinating discharge services: Time spent: Greater than 30 minutes Home Health Home Health Referral Orders: 03/09/25 15:07 Home Health Referral Routine Reason For Exam: IV Abx Home-Bound The patient must either because of illness or injury, need the aid of supportive devices such as crutches, canes, wheelchairs, and walkers; the use of special transportation; or the assistance of another person in order to leave their place of residence; OR have a condition such that leaving his or her home is medically contraindicated. In addition, the patient also meets the following criteria: patient is normally unable to leave the home and leaving home requires considerable taxing effort. Addendum to Home Health Certification Practitioner's Certification: I certify that the patient has been under my care in the hospital and the care of attending physician (see below). We had a [id number] encounter on (see date below). My clinical findings indicate that the patient is home bound per the above criteria and the Home Health Services noted in these orders are medically necessary. The primary reason for the [id number]-[id number] encounter is related to the fact that the patient requires home health services. Date Certifying [id number] Physician Encounter: 03/08/25 Physician's Name who will Assume Oversight for Services: Kim Edwards Physician's Phone No.who will Assume Oversight for Service: [facility] [place] Community Resources: No PT to Evaluate: No PT to evaluate and provide a treatmnet plan to increase patient's mobility and strength. Wound Care: No IV Therapy: Yes IV Medication: Ertapenem IV Dose: 1 Gm IV Frequency: daily IV Stop Date: 03/15/25 Discontinue PICC Line Once Treatment Complete: Yes RN Safety Evaluation: Yes RN to evaluate and create a plan of care that will produce positive outcomes. Palliative Treatment: No Palliative treatment and evaluate the need for hospice. Home Health Aide - Personal Care: No Home Health Aide to assist with any ADL's. 03/10/25 11:30 Home Health Referral Routine Reason For Exam: IV Abx Home-Bound The patient must either because of illness or injury, need the aid of supportive devices such as crutches, canes, wheelchairs, and walkers; the use of special transportation; or the assistance of another person in order to leave their place of residence; OR have a condition such that leaving his or her home is medically contraindicated. In addition, the patient also meets the following criteria: patient is normally unable to leave the home and leaving home requires considerable taxing effort. Addendum to Home Health Certification Practitioner's Certification: I certify that the patient has been under my care in the hospital and the care of attending physician (see below). We had a kaii-yp-jezc encounter on (see date below). My clinical findings indicate that the patient is home bound per the above criteria and the Home Health Services noted in these orders are medically necessary. The primary reason for the [id number]-[id number] encounter is related to the fact that the patient requires home health services. Date Certifying [id number]-Vvza Physician Encounter: 03/08/25 Physician's Name who will Assume Oversight for Services: Kim Edwards Physician's Phone No.who will Assume Oversight for Service: [facility] - Community Resources: No PT to Evaluate: No PT to evaluate and provide a treatmnet plan to increase patient's mobility and strength. Wound Care: No IV Therapy: Yes IV Medication: Ertapenem IV Dose: 1 Gm IV Frequency: daily IV Stop Date: 03/14/25 Discontinue PICC Line Once Treatment Complete: Yes RN Safety Evaluation: Yes RN to evaluate and create a plan of care that will produce positive outcomes. Palliative Treatment: No Palliative treatment and evaluate the need for hospice. Home Health Aide - Personal Care: No Home Health Aide to assist with any ADL's. Exam Vital Signs Temp Pulse Resp BP Pulse Ox O2 Del Method 97.5 F 75 18 129/89 H 96 Room Air 03/10/25 12:00 03/10/25 12:00 03/10/25 12:03/10/25 12:03/10/25 12:03/10/25 08:00 Discharge Plan Plan Patient Disposition: Home w/HOME HEALTH Patient condition on transfer: Stable Care Plan Goals: Follow up with [employer] Dr. Farfan within 1-2 weeks of discharge please finish your antibiotic therapy Ertapenem 1gm daily until you complete 7 days Please follow up with PCP Dr. Edwards within 1 week of discharge Should any symptoms recur or worsen patient is instructed to return to the ED. Prescriptions/Referrals Prescriptions/Med Rec: New ertapenem 1 gram recon soln 1 g IV QDAY 4 Days Continued fenofibrate 160 mg tablet 160 mg PO DAILY Patient Comments: TAKE 1 TABLET BY MOUTH EVERY DAY FOR 90 DAYS gabapentin 300 mg capsule 300 mg PO TID Patient Comments: TAKE 3 CAPSULES BY MOUTH 3 TIMES A DAY nifedipine 30 mg tablet extended release 30 mg PO BID hydrochlorothiazide 25 mg tablet 25 mg PO BID Patient Comments: TAKE 1 TABLET BY MOUTH EVERY DAY IN THE MORNING FOR 90 DAYS hydrocodone-acetaminophen 10-325 mg tablet 1 tab PO Q4H PRN (Reason: pain) Patient Comments: TAKE 1 TABLET BY MOUTH EVERY 4-6 HOURS NEEDED levothyroxine 150 mcg tablet 150 mcg PO DAILY Patient Comments: TAKE 1 TABLET BY MOUTH EVERY DAY IN THE MORNING ON EMPTY STOMACH FOR 90 DAYS ondansetron 4 mg tablet,disintegrating 4 mg PO Q8H PRN (Reason: nausea and vomiting) Patient Comments: DISSOLVE 1 TO 2 TABLETS BY MOUTH EVERY 8 HOURS NEEDED FOR NAUSEA AND VOMITING tizanidine 4 mg capsule 4 mg PO HS PRN (Reason: muscle spasticity) Patient Comments: TAKE 1 CAPSULE BY MOUTH EVERY DAY AT BEDTIME NEEDED doxepin 50 mg capsule 50 mg PO HS Patient Comments: TAKE 1 CAPSULE BY MOUTH EVERYDAY AT BEDTIME hydralazine 100 mg tablet 100 mg PO BID Patient Comments: TAKE 1 TABLET BY MOUTH 3 TIMES A DAY labetalol 200 mg tablet 200 mg PO BID Patient Comments: TAKE 1 TABLET BY MOUTH TWICE A DAY FOR 90 DAYS pravastatin 80 mg tablet 80 mg PO HS Patient Comments: TAKE 1 TABLET BY MOUTH EVERYDAY AT BEDTIME guanfacine 2 mg tablet 2 mg PO HS Patient Comments: TAKE 1 TABLET BY MOUTH EVERY DAY AT BEDTIME FOR 90 DAYS Referrals: Kim Edwards MD [Primary Care Provider] Patient/Caregiver Discharge Instructions Print Language: [place] Stand Alone Forms: [employer]ha Award Info., Patient Portal Info Letter Discharge Order Discharge Orders: Discharge (Routine); Ordered 03/10/25 Ordered By: Man Jose Quality Discharge Quality Measures VTE prophylaxis Attestestation MD Attestation I have discussed and was present for the essential components of the discharge history, physical examination, diagnosis, and discharge treatment plan with the resident. I agree with the patient's discharge care as documented by the resident and amended herein by me. Raz Saeed, DO. The patient understood all discharge instructions, all questions were answered satisfactorily. The patient was instructed to return to the Emergency Department is symptoms worsened or persisted. Will continue the patient on ertapenem for 4 more days for ESBL Klebsiella diagnosed at prior to admission. Home health has been ordered. Patient does follow-up with urology at [facility] however is interested in another opinion hence may follow-up with [place] upon discharge considering frequent UTIs. Patient does feel improved, she is stable, afebrile, tolerating p.o. intake and ambulatory at time of discharge home. Although this document has been carefully reviewed, there may still be some phonetic and other typographical errors. These errors are purely grammatical due to imperfections in the software program and should not be construed in any way to compromise the substance of the patient's medical care during this visit.
--- NOTE | 2025-03-10 13:43 | PC.SS ---
Follow up note: Pt is requiring IV antibiotic, Urtapenem 1grm 1X day until Mar 14, 2025. Pt will return home with .
== END 2025-03-10 14:48 | disposition home health service (06) | DRG 690 ==
PROVIDERS: Internal Medicine Infectious Disease; Admitting Provider Internal Medicine Cardiovascular Disease; PCP Internal Medicine; Visit Provider Student in an Organized Health Care Education/Training Program
DX: N39.0 Urinary tract infection, site not specified (principal); Z16.12 Extended spectrum beta lactamase (ESBL) resistance; I20.9 Angina pectoris, unspecified; I05.0 Rheumatic mitral stenosis; I12.9 Hypertensive chronic kidney disease with stage 1 through stage 4 chronic kidney disease, or unspecified chronic kidney disease; B96.1 Klebsiella pneumoniae [K. pneumoniae] as the cause of diseases classified elsewhere; E78.5 Hyperlipidemia, unspecified; E03.9 Hypothyroidism, unspecified; F41.9 Anxiety disorder, unspecified; N18.32 Chronic kidney disease, stage 3b; N81.10 Cystocele, unspecified; G89.29 Other chronic pain; Z53.29 Procedure and treatment not carried out because of patient's decision for other reasons; Z79.890 Hormone replacement therapy; Z79.899 Other long term (current) drug therapy; Z87.440 Personal history of urinary (tract) infections; Z96.641 Presence of right artificial hip joint; Z96.652 Presence of left artificial knee joint; I1A.0 Resistant hypertension; F32.A Depression, unspecified
CPT/HCPCS: 36415; 71045; 76770; 80053; 81001; 83735; 84100; 84132; 85025; 86803; 87040; 87081; 87086; A9270; C1751; C1894; J1642; J1644; J2185; J2470; J3475; J3490; J7050

== ENCOUNTER 2025-04-20 13:57 | Inpatient (IN) | payer MEDICARE, SELFPAY ==
[2025-04-20] VITALS (11 sets, daily range): BP systolic 122–183; BP diastolic 49–75; PULSE 52–55; RESP 18–54; TEMP 36.2–36.7; O2SAT 95–98; BMI 28.3
--- NOTE | 2025-04-20 14:09 | ESCONSULT_ITS ---
<Statement entered by Jason Farfan MD - 04/25/25 17:24> The patient is examined seen by me personally as the patient is well-known to me has a longstanding history of hypertension difficult to control multiple medical problems recurrent urinary tract infection multiple bladder surgeries came to the hospital with urinary tract infection severe symptoms high risk patient patient admitted to hospital for aggressive antibiotic therapy with meropenem patient has a ESBL Klebsiella organism culture positive patient be given IV meropenem for next 2 to 3 days repeat cultures will also require urology consultation possible assessment as an outpatient because of urinary incontinence. Evaluated patient with resident physician PGY 2 DR. DE LEON HPI Data of Consult Requesting Physician: Jason Farfan MD Admitting Provider: Jason Farfan MD Attending Provider: Jason Farfan MD Primary Care Provider: Physician No Primary/Family Consult Narrative History of present illness: 74-year-old female with past medical history of resistant hypertension, hyperlipidemia, mitral stenosis, hypothyroidism, CKD stage IIIb, recurrent UTIs, anxiety depression, chronic pain presenting with burning with urination and dysuria. Patient was recently admitted to [facility] on 03/09 for similar complaint of urinary tract infection with multidrug- resistant bacteria; moreover, was discharged with IV PICC line but continues to have symptoms of dysuria. Patient recently had urine studies/culture completed on 04/11/2025 which showed Klebsiella pneumonia urinary tract infection which is sensitive only to amikacin, gentamicin and ertapenem. Patient will be readmitted for the management of the following condition. Past medical history: As above Past surgical history: Multiple cystoplasty, right hip replacement, left knee replacement Allergies: No known drug allergies Medications: Hydralazine 100 mg twice daily, hydrochlorothiazide 25 mg twice daily, labetalol 200 mg twice daily, nifedipine 30 mg twice daily, guanfacine 2 mg at bedtime, pravastatin 80 mg at bedtime, levothyroxine 150 mcg, fenofibrate 160 mcg, doxepin 50 mg at bedtime, gabapentin 300 mg 3 times daily, tizanidine 4 mg at bedtime as needed, Zofran 4 mg every 8 as needed Family history: Noncontributory Social history: Social drinking, no tobacco or illicit drug use including THC Patient will be admitted for the management of multidrug-resistant UTI with urology consultation for possible need for urogyn recommendations; moreover, will require close monitoring as she has resistant hypertension treated by cardiology team cc:: cc: Jason Farfan MD Exam Vital Signs Temp Pulse Resp BP Pulse Ox O2 Del Method 97.5 F 56 L 16 124/99 H 93 L Room Air 03/10/25 04:00 03/10/25 09:07 03/10/25 04:00 03/10/25 08:17 03/10/25 04:00 03/10/25 04:00 Narrative Exam Physical Exam: GENERAL: NAD, AAOx3 HEENT: Moist mucosa. Eyes open, symmetrical, & clear CARDIO: Heart RRR, no obvious murmurs PULM: No noted coughing/dyspnea CTA B/L, no R/W/R GI: Abdomen soft, nondistended, no pain on palpation. BSx4 SKIN/MSK/EXT: No wounds/rashes/edema/amputations, no pain on palpation. Pedal pulses present B/L NEURO: AAOx3, no focal neuro deficits, able to move all 4 extremities Results Labs 04/20/25 14:53 04/20/25 14:53 Quality Measures Quality Measures VTE prophylaxis Advance care planning discussed with:: patient Medications Home Medications and Allergies Home Medications ?Medication ?Instructions ?Recorded ?Confirmed ?Type doxepin 50 mg capsule 50 mg PO HS 03/08/25 5 History fenofibrate 160 mg tablet 160 mg PO DAILY 03/08/25 History gabapentin 300 mg capsule 300 mg PO TID 03/08/2503/08 History guanfacine 2 mg tablet 2 mg PO HS 03/08/25 03/08/25 History hydralazine 100 mg tablet 100 mg PO BID 03/08/2503/08 History hydrochlorothiazide 25 mg tablet 25 mg PO BID 03/08/25 03/08/25 History hydrocodone 10 mg-acetaminophen 1 tab PO Q4H PRN pain 03/08/25 03/08/25 History 325 mg tablet labetalol 200 mg tablet 200 mg PO BID 03/08/2503/08 History levothyroxine 150 mcg tablet 150 mcg PO DAILY 03/08/25 03/08/25 History nifedipine 30 mg tablet,extended 30 mg PO BID 03/08/25 03/08/25 History release ondansetron 4 mg disintegrating 4 mg PO Q8H PRN nausea and vomiting 03/08/25 03/08/25 History tablet pravastatin 80 mg tablet 80 mg PO HS 03/08/25 5 History tizanidine 4 mg capsule 4 mg PO HS PRN muscle spasti city 03/08/25 03/08/25 History Allergies Allergy/AdvReac Type Severity Reaction Status Date / Time No Known Allergies Allergy Verified 03/08/25 20:55 Assessment & Plan Plan 74-year-old female with past medical history of resistant hypertension, hyperlipidemia, mitral stenosis, hypothyroidism, CKD stage IIIb, recurrent UTIs, anxiety depression, chronic pain presenting with burning with urination and dysuria. Admitted for UTI after failing outpatient therapy as well as management of resistant hypertension. #Resistant hypertension #Hyperlipidemia #Angina pectoralis History of resistant hypertension and angina pectoralis with complete negative workup. She is on multiple home anti-hypertensives, managed by cardiology, Dr. Farfan. She states blood pressure usually runs in the 220s systolic at night and she becomes symptomatic with severe headache and nausea. Angina pectoralis managed with nitroglycerin. Currently denies headache, chest pain, palpitations or shortness of breath. On home labetalol 200 mg twice daily, nifedipine 30 mg twice daily, hydrochlorothiazide 25 mg twice daily, guanfacine 2 mg p.o. at bedtime, hydralazine 100 mg p.o. twice daily hold if systolic blood pressure less than 150, pravastatin 40 mg daily, fenofibrate 160 mg daily, nitroglycerin SL PRN for chest pain Plan: Resume nearly all home medications Guanfacine not on formulary, resume patient's own medication when available Cardiology on board for close monitoring of blood pressure #Complicated UTI secondary to ESBL Klebsiella UTI in the setting of bladder prolapse #Recurrent UTI secondary bladder prolapse #CKD stage IIIb #Hypothyroidism #Anxiety/depression #Chronic back pain Plan: Consulting Urology, Dr. Moreno, as patient might benefit from further recommendation regarding recurrent UTI; possible need for URO-SEARCH ENGINE [employer]ATION [employer]NALYST Manage as per IM team Patient seen and assessed with attending Dr. Adolph De Leon, DO PGY-2 Internal Medicine - [facility]
[2025-04-20 15:07] LABS: Basophils # (Auto) 0.0 Thou/mm3 (0.0-0.2); Basophils % (Auto) 1 % (0-2.5); Eosinophils # (Auto) 0.0 Thou/mm3 (0.0-0.5); Eosinophils % (Auto) 1 % (0-10); Hematocrit 34.9 % (36.0-46.0); Hemoglobin 11.4 g/dL (12.0-16.0); Immature Granulocytes Auto 0.04 Thou/mm3 (0.00-0.00); Lymphocytes # (Auto) 1.8 Thou/mm3 (1.0-4.8); Lymphocytes % (Auto) 31 % (10-50); Mean Corpuscular HGB Conc 32.7 g/dl (31.0-37.0); Mean Corpuscular Hemoglobin 29.5 pg (25.0-35.0); Mean Corpuscular Volume 90 fL (80-100); Monocytes # (Auto) 0.5 Thou/mm3 (0.0-0.8); Monocytes % (Auto) 9 % (0-12); Neutrophils # (Auto) 3.3 Thou/mm3 (1.8-7.7); Neutrophils % (Auto) 58 % (37-80); Nucleated Red Blood Cell # 0.00 Thou/mm3 (0.00-0.00); Nucleated Red Blood Cell % 0 /100 WBC (0); Platelet Count 262 Thou/mm3 (140-440); RDW Standard Deviation 47.3 fL (36.4-46.3); Red Blood Count 3.86 Miln/mm3 (4.00-5.20); White Blood Count 5.8 Thou/mm3 (3.6-11.0)
[2025-04-20 15:23] LABS: Albumin, Serum 5.0 gm/dL (3.4-4.8); Anion Gap 11 (7-16); Aspartate Amino Transferase 20 U/L (0-34); BUN/Creatinine Ratio 15 Ratio (12-20); Blood Urea Nitrogen 20 mg/dL (9-23); Calcium 10.2 mg/dL (8.3-10.6); Calcium (Corrected) 10.2 mg/dL (8.5-10.1); Carbon Dioxide 27.2 mMol/L (20.0-31.0); Chloride 106 mMol/L (98-107); Creatine Kinase 103 U/L (34-171); Creatinine (Component) 1.3 mg/dL (0.6-1.3); Estimated Creatinine Clearance 37.7 mL/min (>60); Glucose 113 mg/dL (74-106); LDH (Lactate Dehydrogenase) 184 U/L (120-246); Osmolality,Calculated 290 (275-295); Phosphorous 4.0 mg/dL (2.4-5.1); Potassium 3.9 mMol/L (3.4-5.1); Sodium 144 mMol/L (136-145); eGFR 43 See Note
--- NOTE | 2025-04-20 16:22 | ESHP_ITS ---
<Statement entered by Boom Duarte MD - 05/04/25 07:52> I reviewed above note and agree with findings and plans. I have also personally examined the patient with medicine team and went over assessment and plan with medical team including photo intern and resident physician. <Statement entered by Alla Gates MD - 04/21/25 08:07> Patient was seen and examined by me personally. I have directly supervised and reviewed documentation by the team resident and agree with its findings with any exceptions or additional findings as below. Plan of care was discussed with the attending, Dr. Duarte. Patient is a direct admit via Dr. Farfan for ESBL E. coli UTI. Patient apparently has positive cultures from [facility]. History of recurrent UTIs. Will start meropenem 1 g q8h after obtaining new UA and urine culture. 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 Patient reports that she began to feel bad 5 to 6 days after she had finished the antibiotics she had been discharged with from her previous hospitalization on 03/08/2025 (4-[id number]-[id number] of ertapenem 1 g IV daily). She states that she had attempted to pursue outpatient management where she was treated with antibiotics like Bactrim and ciprofloxacin which all failed to alleviate her condition. She endorses symptoms of pressure in the pelvic region, nausea, loss in appetite, weakness, paroxysmal fever, and a painful burning sensation during urination that sends chills throughout her body and makes her feel like she is going to pass out. She reports that this specific constellation of symptoms has been ongoing for 4 months but that she has a history of recurrent UTIs even before that. Per patient and her , previous doctors had attributed her recurrent UTIs to structural issues of the bladder causing incomplete urine drainage and that she has had over 9 corrective urological surgeries that have all failed to prevent the recurrence of new UTI. She also endorses vaginal symptoms of dryness and pain and reports that she had slowly progressed to complete incontinence ever since her hysterectomy and subsequent repeated UTIs. Of note, patient had recently been hospitalized a little over a month ago at [facility] on 03/08/2025 with similar complaints but, interestingly, her UA from that time was completely bland (only positive for LE and scant WBC of 27) and the final urine culture showed no growth. CBC at that time also showed no leukocytosis and patient had remained afebrile throughout the course of her previous admission. Although patient reports that she had been diagnosed with ESBL UTI when she had been hospitalized at [facility], there is currently no documentation of any objective evidence of the above in [facility]'s EMR. She had been discharged from [facility] last time with a PICC line in place for continued treatment of her reported infection with a 1-fsm-cltvrr of ertapenem 1 g IV daily for which she states she had been compliant with. Past medical history: As above Past surgical history: Multiple cystoplasty (over 9), right hip replacement, left knee replacement, hysterectomy, lumpectomy for breast cancer 8 years ago, and 3 neck surgeries Allergies: No known drug allergies Medications: Hydralazine 100 mg twice daily, hydrochlorothiazide 25 mg twice daily, labetalol 200 mg twice daily, nifedipine 30 mg twice daily, guanfacine 2 mg at bedtime, pravastatin 80 mg at bedtime, levothyroxine 150 mcg, fenofibrate 160 mcg, doxepin 50 mg at bedtime, gabapentin 300 mg 3 times daily, tizanidine 4 mg at bedtime as needed, Zofran 4 mg every 8 as needed Family history: Dad had T2DM, mom had lung cancer (heavy smoker) Social history: Social drinking, no tobacco or illicit drug use including THC In the ED, vitals showed: BP 170/71 HR 55 RR 54 Temp 97.4 SpO2 95% on room air CBC showed WBC 5.8, hemoglobin 11.4 (MCV 90, RDW 47.3), but otherwise WNL. CMP showed creatinine 1.3, eGFR 43, LDH 184, total CK 103, but otherwise WNL. Imaging: None Patient was admitted to observation for the work-up and management of ESBL UTI. Cardiology (Dr. Farfan) has been consulted and is closely following the case. Review of Systems Review of Systems Systems Reviewed: All systems reviewed, normal except as documented Exam Vital Signs Temp Pulse Resp BP Pulse Ox O2 Del Method 97.4 F 55 L 54 H 170/71 H 95 Room Air 04/20/25 14:59 04/20/25 15:07 04/20/25 14:59 04/20/25 14:59 04/20/25 14:59 04/20/25 14:59 Narrative Exam General: A/O x3, no acute distress. Skin: Warm, dry, intact, no obvious rash. Head: Normocephalic, atraumatic. Eyes: EOMI. Anicteric, vision grossly intact. Ears: No ear pain, no ear discharge, Hearing grossly intact. Nose: No nasal discharge. Mouth/Throat: Oral mucosa moist. No obvious lesions in oropharynx. Neck: Limited leftward rotation of head, neck stiffness. Cardiovascular: Bradycardic rate and normal rhythm, no murmur, no JVD or carotid bruits. +S1/S2. Respiratory: Bilateral lungs are clear to auscultation, respirations unlabored, no crackles, no wheezing. No accessory muscle use. Gastrointestinal: Generalized tenderness to palpation of abdomen with guarding noted. Soft, non-distended, no palpable masses. No rebound tenderness. Peristalsis present. Extremities: Symmetrical, no significant deformities. No edema, no cyanosis, no clubbing. 2+ radial pulse bilaterally, 2+ posterior tibial pulse bilaterally. Neuro: No focal deficits observed. Conversant, moving all extremities. No overt cerebellar signs/incoordination. Psychiatric: Cooperative, appropriate affect. Results: Labs 04/20/25 14:53 04/20/25 14:53 Labs: Short CBC 04/20/25 Range/Units 14:53 WBC 5.8 (3.6-11.0) Thou/mm3 Hgb 11.4 L (12.0-16.0) g/dL Hct 34.9 L (36.0-46.0) % Plt Count 262 D (140-440) Thou/mm3 BMP 04/20/25 14:53 Sodium 144 Potassium 3.9 Chloride 106 Carbon Dioxide 27.2 BUN 20 Creatinine 1.3 Glucose 113 H Calcium 10.2 Cardiac Enzymes 04/20/25 Range/Units 14:53 Total Creatine Kinase 103 (34-171) U/L Liver Function 04/20/25 Range/Units 14:53 AST 20 (0-34) U/L Albumin 5.0 H (3.4-4.8) gm/dL Quality Measures Quality Measures VTE prophylaxis Advance care planning discussed with:: patient Medications Home Medications and Allergies Home Medications ?Medication ?Instructions ?Recorded ?Confirmed ?Type doxepin 50 mg capsule 50 mg PO HS 03/08/25 5 History fenofibrate 160 mg tablet 160 mg PO DAILY 03/08/2512/07 History gabapentin 300 mg capsule 300 mg PO TID 03/08/2504/20 History guanfacine 2 mg tablet 2 mg PO HS 03/08/25 04/20/25 History hydralazine 100 mg tablet 100 mg PO BID 03/08/2504/20 History hydrochlorothiazide 25 mg tablet 25 mg PO BID 03/08/25 04/20/25 History hydrocodone 10 mg-acetaminophen 1 tab PO Q4H PRN pain 03/08/25 04/20/25 History 325 mg tablet labetalol 200 mg tablet 200 mg PO BID 03/08/2504/20 History levothyroxine 150 mcg tablet 150 mcg PO DAILY 03/08/25 04/20/25 History nifedipine 30 mg tablet,extended 30 mg PO BID 03/08/25 04/20/25 History release ondansetron 4 mg disintegrating 4 mg PO Q8H PRN nausea and vomiting 03/08/25 04/20/25 History tablet pravastatin 80 mg tablet 80 mg PO HS 03/08/25 5 History tizanidine 4 mg capsule 4 mg PO HS PRN muscle spasti city 03/08/25 04/20/25 History Allergies Allergy/AdvReac Type Severity Reaction Status Date / Time No Known Allergies Allergy Verified 03/08/25 20:55 Visit Medications Hydrocodone Bitart/Acetaminophen (Hydrocodone/Apap 5/325 Tablet) 1 tab PO Q6HR PRN PRN Reason: Severe Pain 7-10 Stop: 04/25/25 16:03 Doxepin HCl (Doxepin Hcl 25 Mg Capsule) 25 mg PO HS ROBERT Stop: 05/20/25 20:59 Fenofibrate (Fenofibrate 145 Mg Tablet (Non-Formulary)) 160 mg PO QDAY ROBERT Stop: 05/21/25 08:59 Gabapentin (Gabapentin 300 Mg Capsule) 600 mg PO TID ROBERT Stop: 05/20/25 16:14 Hydrochlorothiazide (Hydrochlorothiazide 12.5 Mg Capsule) 25 mg PO QDAY ROBERT Stop: 05/20/25 16:14 Meropenem 1,000 mg/ Sodium (Chloride) 50 mls @ 100 mls/hr IV Q8HR ROBERT Stop: 04/27/25 16:14 Labetalol HCl (Labetalol 100 Mg Tablet) 200 mg PO BID ROBERT Stop: 05/20/25 20:59 Levothyroxine Sodium (Levothyroxine Sodium 125 Mcg Tablet) 125 mcg PO ACBR ROBERT Stop: 05/21/25 05:59 Nifedipine (Nifedipine Xl 30 Mg Tabcr) 30 mg PO BID ROBERT Stop: 05/20/25 20:59 Nitroglycerin (Nitroglycerin 0.4 Mg Subl Btl #25) 0.4 mg SL Q5MIN PRN PRN Reason: CHEST PAIN Pravastatin Sodium (Pravastatin Sodium 10 Mg Tablet) 40 mg PO QDAY ROBERT Stop: 05/21/25 08:59 Assessment & Plan Plan Oscar Slaughter is a 74-year-old female with a PMH of resistant hypertension, hyperlipidemia, mitral stenosis, breast cancer s/p lumpectomy and 2 months of radiation treatment 8 years ago, 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 Patient was admitted to observation for the work-up and management of ESBL UTI. #ESBL UTI #PMH of recurrent UTIs, s/p multiple bladder surgeries Presented on 04/20 with chief complaint of severe dysuria, increased urinary frequency, and pelvic pain which were refractory to outpatient antibiotics (Bactrim, possibly ciprofloxacin) Endorses associated symptoms of nausea, loss of appetite, weakness, paroxysmal fevers, and chills Status post over 9 bladder surgeries which have been ineffective in preventing UTI recurrence Of note, patient had been recently hospitalized on 03/08 with similar complaints and UA from that time was completely bland and final urine culture showed no growth (she also remained afebrile and had no leukocytosis during the entire admission) Upon admission this time, patient is again afebrile and without leukocytosis Dx: -04/20 UA ordered, showed ___ -04/20 UCx ordered, showed ___ Rx: -Meropenem 1000 mg IV q8HR [04/20--] -ID has been consulted, appreciate recommendations #Resistant hypertension 04/20 admission BP 170/71, on home labetalol 200 mg PO BID, nifedipine 30 mg PO BID, guanfacine 2 mg PO HS, hydrochlorothiazide 25 mg PO qD, hydralazine 100 mg Rx: -Labetalol 200 mg PO BID -Nifedipine 30 mg PO BID -Hydrochlorothiazide 25 mg PO qD -Hydralazine 100 mg PO BID #Hyperlipidemia Per prior documentation and patient's own report Patient is on home pravastatin 80 mg PO HS Rx: -Pravastatin 40 mg PO HS #Normocytic anemia 04/20 admission Hgb 11.4 (MCV 90, RDW 47.3) Dx: -04/20 iron panel and ferritin ordered, showed ___ Rx: -Continue to monitor CBC, transfuse if Hgb<7 Hospital Management: Disposition: Admitted to observation for the work-up and management of ESBL UTI Diet: Regular GI Prophylaxis: Not Indicated Bowel Prophylaxis: Senna 1 tab PO qD DVT Prophylaxis: Heparin 5K SC q12HR CODE STATUS: Full Code I have examined the patient and conferred with my attending, Dr. Duarte, and my senior resident, Dr. Gates, regarding them. Ilya Strauss DO PGY-1 Internal Medicine
--- NOTE | 2025-04-20 16:43 | PC.NURSE ---
called Dr. Strauss for high blood pressure
[2025-04-20] MEDS: MEROPENEM INJ 1,000 MG in SODIUM CHLORIDE 0.9% (Popper) 50 ML 100 MG IV ×2 (17:19→22:10)
[2025-04-20] MEDS: LABETALOL 100 MG TABLET 200 MG PO ×2 (17:19→20:43)
[2025-04-20] MEDS: GABAPENTIN 300 MG CAPSULE 600 MG PO ×2 (17:20→21:01)
[2025-04-20] MEDS: NIFEdipine XL 30 MG TABCR PO ×2 (17:21→20:43)
[2025-04-20] MEDS: DOXEPIN HCL 25 MG CAPSULE PO ×2 (17:33→20:42)
[2025-04-20 19:39] LABS: Collection Type, Urine Clean Catch
[2025-04-20 19:47] LABS: Bacteria,Urine Rare; Bilirubin,Urine Negative (Negative); Blood,Urine Negative (Negative); Clarity,Urine Clear (Clear/Hazy); Color,Urine Lt-Yellow (Lt Yel-Yel); Glucose, Urine Negative (Negative); Ketones,Urine Negative (Negative); Leukocyte Esterase,Urine Positive (Negative); Nitrite,Urine Positive (Negative); PH,Urine 6.0 (5.0-7.0); Protein,Urine Negative (Neg - Trace); RBC,Urine 1 /hpf (0-3); Specific Gravity,Urine 1.016 (1.001-1.035); Squamous Epithelial Cell,Urine 1 /hpf (0-5); Urobilinogen,Urine Negative mg/dL (0.0-1.0); WBC,Urine 52 /hpf (0-5)
[2025-04-20] MEDS: HEPARIN SOD INJ 5000 UNIT/ML VIAL SC (20:48)
[2025-04-20] MEDS: HYDROcodone/APAP 5/325 TABLET 1 TAB PO (21:01)
[2025-04-20 21:50] LABS: Ferritin 26 ng/mL (7.3-270.7); Iron 44 mcg/dL (50-170); Percent Iron Saturation 9 % (20-55); Total Iron Binding Capacity 463 mcg/dL (250-425); Unsaturated Iron Binding 419 (225-295)
[2025-04-21] VITALS (15 sets, daily range): BP systolic 126–163; BP diastolic 57–82; PULSE 43–61; RESP 16–17; TEMP 36.4–36.7; O2SAT 95–97
[2025-04-21] MEDS: HYDROcodone/APAP 5/325 TABLET 1 TAB PO ×3 (05:08→21:35)
[2025-04-21] MEDS: GABAPENTIN 300 MG CAPSULE 600 MG PO ×3 (05:09→21:18)
[2025-04-21] MEDS: MEROPENEM INJ 1,000 MG in SODIUM CHLORIDE 0.9% (Popper) 50 ML 100 MG IV ×3 (05:09→21:21)
[2025-04-21] MEDS: LEVOTHYROXINE SODIUM 125 MCG TABLET PO (05:09)
[2025-04-21 06:21] LABS: Cardiac Risk Estimate 2.5 RATIO (3.7-5.6); Cholesterol 157 mg/dL (132-200); HDL Cholesterol 62 mg/dL (40-60); LDL Cholesterol,Calculated 63 mg/dL (0-130); Triglycerides 161 mg/dL (30-150)
[2025-04-21] MEDS: PRAVASTATIN SODIUM 10 MG TABLET 40 MG PO (09:25)
[2025-04-21] MEDS: LABETALOL 100 MG TABLET 200 MG PO ×2 (09:26→21:17)
[2025-04-21] MEDS: HEPARIN SOD INJ 5000 UNIT/ML VIAL SC ×2 (09:27→21:30)
[2025-04-21] MEDS: NIFEdipine XL 30 MG TABCR PO ×2 (09:30→21:18)
--- NOTE | 2025-04-21 09:35 | ESPR_ITS ---
<Statement entered by Jason Farfan MD - 04/25/25 17:13> I personally examined the patient evaluate the patient along with resident physician Dr. Garrison Pierre PGY1 agree with treatment plan recommendation patient improving with medical management IV antibiotics will be continued waiting for the cultures final reports the cultures are negative will keep another day and possibly discharged home on oral antibiotics for prevention of urinary tract infection. Documentation for date of: 04/21/25 Subjective Subjective Interval history: Patient seen and examine today; no acute events overnight. No flank pain; having urinary frequency, urgency, pain on urination. Exam Vital Signs Temp Pulse Resp BP Pulse Ox O2 Del Method 97.6 F 58 L 16 163/69 H 97 Room Air 04/21/25 07:35 04/21/25 07:35 04/21/25 07:35 04/21/25 07:35 04/21/25 07:35 04/21/25 07:35 Narrative Exam General: A/O x3, no acute distress, well-nourished, well-developed Eyes: PERRL, EOMI. Anicteric, vision grossly intact. Ears: No ear pain, no ear discharge, Hearing grossly intact. Nose: No nasal discharge. Mouth/Throat: Moist mucous membranes, no redness, no lesions. Neck: Neck supple, non-tender, no cervical lymphadenopathy. Lungs: Clear JOAN to auscultation and percussion, No accessory muscle use. Cardio: Normal S1/S2, regular rhythm, no murmurs, no JVD or carotid bruits. Abdomen: Soft, non-tender, no palpable masses, peristalsis present, no guarding or rebound. Extremities: Symmetrical, no significant deformities, no peripheral edema , non-tender, peripheral pulses present. Skin: No rashes, no lesions, warm to touch. Neuro: No focal neurological deficits. Psych: Cooperative, appropriate mood and effect. Objective Labs 04/20/25 14:53 04/20/25 14:53 Labs: Laboratory Results - last 24 hr 04/20/25 04/20/25 04/21/25 14:53 19:30 05:34 WBC 5.8 RBC 3.86 L Hgb 11.4 L Hct 34.9 L MCV 90 MCH 29.5 MCHC 32.7 RDW Std Deviation 47.3 H Plt Count 262 D Neut % (Auto) 58 Lymph % (Auto) 31 [place] % (Auto) 9 Eos % (Auto) 1 Baso % (Auto) 1 Neut # (Auto) 3.3 Lymph # (Auto) 1.8 [place] # (Auto) 0.5 Eos # (Auto) 0.0 Baso # (Auto) 0.0 Immature Gran # (Auto) 0.04 H Absolute Nucleated RBC 0.00 Immature Gran % 1 H Nucleated RBC % 0 Sodium 144 Potassium 3.9 Chloride 106 Carbon Dioxide 27.2 Anion Gap 11 BUN 20 Creatinine 1.3 Estim Creat Clear Calc 37.7 L eGFR 43 L BUN/Creatinine Ratio 15 Glucose 113 H Calculated Osmolality 290 Calcium 10.2 Corrected Calcium 10.2 H Phosphorus 4.0 Iron 44 L TIBC 463 H Iron Saturation 9 L Unsat Iron Binding 419 H Ferritin 26 AST 20 Lactate Dehydrogenase 184 Total Creatine Kinase 103 Albumin 5.0 H Triglycerides 161 H Cholesterol 157 LDL Cholesterol, Calc 63 HDL Cholesterol 62 H Cholesterol/HDL Ratio 2.5 L Ur Collection Type Clean Catch Urine Color Lt-Yellow Urine Clarity Clear Urine pH 6.0 Ur Specific [place] 1.016 Urine Protein Negative Urine Glucose (UA) Negative Urine Ketones Negative Urine Blood Negative Urine Nitrite Positive Urine Bilirubin Negative Urine Urobilinogen (Auto) Negative Ur Leukocyte Esterase Positive Urine RBC 1 Urine WBC 52 H Ur Squamous Epith Cells 1 Urine Bacteria Rare Quality Measures Quality Measures VTE prophylaxis Advance care planning discussed with:: other Assessment & Plan Assessment Current Active Medications: Generic Name Dose Route Start Last Admin Trade Name Freq PRN Reason Stop Dose Admin Hydrocodone Bitart/Acetaminophen 1 tab 04/20/25 16:04 04/21/25 05:08 Hydrocodone/Apap 5/325 Tablet PO 04/25/25 16:03 1 tab Q6HR PRN Administration Severe Pain 7-10 Doxepin HCl 25 mg 04/20/25 21:00 04/20/25 20:42 Doxepin Hcl 25 Mg Capsule PO 05/20/25 20:59 25 mg HS ROBERT Administration Fenofibrate 160 mg 04/21/25 09:00 Fenofibrate 160 Mg Tablet (Non-Formulary) PO 05/21/25 08:59 QDAY ROBERT Gabapentin 600 mg 04/20/25 16:15 04/21/25 05:09 Gabapentin 300 Mg Capsule PO 05/20/25 16:14 600 mg TID ROBERT Administration Heparin Sodium (Porcine) 5,000 unit 04/20/25 21:00 04/20/25 20:48 Heparin Sod Inj 5000 Unit/Ml Vial SC 05/04/25 20:59 5,000 unit Q12HR ROBERT Administration Hydralazine HCl 100 mg 04/20/25 21:00 04/20/25 20:44 Hydralazine Hcl 25 Mg Tablet PO 05/20/25 20:59 100 mg BID ROBERT Administration Hydrochlorothiazide 25 mg 04/20/25 21:00 04/20/25 20:44 Hydrochlorothiazide 12.5 Mg Capsule PO 05/20/25 20:59 25 mg BID ROBERT Administration Meropenem 1,000 mg/ Sodium 50 mls @ 100 mls/hr 04/20/25 16:15 04/21/25 05:09 Chloride IV 04/27/25 16:14 100 mls/hr Q8HR ROBERT Administration Labetalol HCl 200 mg 04/20/25 21:00 04/20/25 20:43 Labetalol 100 Mg Tablet PO 05/20/25 20:59 200 mg BID ROBERT Administration Levothyroxine Sodium 125 mcg 04/21/25 06:00 04/21/25 05:09 Levothyroxine Sodium 125 Mcg Tablet PO 05/21/25 05:59 125 mcg ACBR ROBERT Administration Melatonin 6 mg 04/20/25 19:45 Melatonin 3 Mg Tablet PO 05/20/25 20:59 HS PRN INSOMNIA Nifedipine 30 mg 04/20/25 21:00 04/20/25 20:43 Nifedipine Xl 30 Mg Tabcr PO 05/20/25 20:59 30 mg BID ROBERT Administration Nitroglycerin 0.4 mg 04/20/25 16:21 Nitroglycerin 0.4 Mg Subl Btl #25 SL Q5MIN PRN CHEST PAIN Patient Own Medication 1 ea 04/21/25 21:00 Patient's Own Med 1 Ea Ea PO 05/21/25 20:59 HS ROBERT Pravastatin Sodium 40 mg 04/21/25 09:00 Pravastatin Sodium 10 Mg Tablet PO 05/21/25 08:59 QDAY ROBERT Sennosides 1 tab 04/21/25 09:00 Senna Tablet PO 05/21/25 08:59 QDAY ROBERT Protocol Plan Patient is 74-year-old F with PMH of resistant HTN, HLD, mitral stenosis, hypothyroidism, CKD stage IIIb, recurrent UTIs, anxiety, depression, chronic pain presenting with burning with urination and dysuria. Admitted for UTI after failing outpatient therapy and management of resistant hypertension. #Resistant hypertension #Hyperlipidemia #Angina pectoralis History of resistant hypertension and angina pectoralis with complete negative workup. Takes multiple home anti-hypertensives, managed by cardiology, Dr. Farfan. Blood pressure usually runs in the 220s systolic at night and becomes symptomatic with severe headache and nausea. Angina pectoralis managed with nitroglycerin. Currently denies headache, chest pain, palpitations or shortness of breath. On home labetalol 200 mg twice daily, nifedipine 30 mg twice daily, hydrochlorothiazide 25 mg twice daily, guanfacine 2 mg p.o. at bedtime, hydralazine 100 mg p.o. twice daily hold if systolic blood pressure less than 150, pravastatin 40 mg daily, fenofibrate 160 mg daily, nitroglycerin SL PRN for chest pain Plan: Resume home medications Cardiology on board for close monitoring of blood pressure #Complicated UTI secondary to ESBL Klebsiella UTI in the setting of bladder prolapse #Recurrent UTI secondary bladder prolapse #CKD stage IIIb #Hypothyroidism #Anxiety/depression #Chronic back pain Plan: Consulting Urology, Dr. Moreno, as patient might benefit from further recommendation regarding recurrent UTI; possible need for [facility] Keep over the weekend for antibiotic management of ESBL UTI Manage as per IM team This case was discussed with my attending physician, Dr. Farfan. Jim Pierre, PGY1
[2025-04-21] MEDS: ONDANSETRON INJ 2 MG/ML INJ 2 ML 4 MG IVP ×2 (10:54→20:05)
--- NOTE | 2025-04-21 13:34 | ESPR_ITS ---
<Statement entered by Boom Duarte MD - 05/04/25 07:56> I reviewed above note and agree with findings and plans. I have also personally examined the patient with medicine team and went over assessment and plan with medical team including internal revenue agent and resident physician. <Statement entered by Alla Gates MD - 04/22/25 07:57> Patient was seen and examined by me personally. I have directly supervised and reviewed documentation by the team resident and agree with its findings with any exceptions or additional findings as below. Plan of care was discussed with the attending, Dr. Duarte. Patient doing well, on meropenem for ESBL UTI, will await final urine culture results and plan for discharge after that. Alla Gates, PGY-3 Documentation for date of: 04/21/25 Subjective Subjective Interval history: No overnight events. Patient was examined at bedside; they appear A&Ox3 and in NAD. Today, they continue to complain of similar urinary symptoms as yesterday but deny any new symptoms. Vitals/labs today significant for BP 163/69, HR 58, Hgb 11.4, iron panel suggestive of SHOBHA, lipid panel showed triglycerides 161 but otherwise WNL. Physical exam was benign and unremarkable. 04/20 UA showed (+) nitrite and LE with pyuria 52 and rare urine bacteria. 04/20 UCx still pending. Patient will continue on Meropenem for her presumed ESBL UTI with no changes to management today. Exam Vital Signs Temp Pulse Resp BP Pulse Ox O2 Del Method 97.6 F 54 L 16 153/62 H 97 Room Air 04/21/25 12:00 04/21/25 12:00 04/21/25 12:00 04/21/25 12:00 04/21/25 12:00 04/21/25 12:00 Narrative Exam General: A/O x3, no acute distress. Skin: Warm, dry, intact, no obvious rash. Head: Normocephalic, atraumatic. Eyes: EOMI. Anicteric, vision grossly intact. Ears: No ear pain, no ear discharge, Hearing grossly intact. Nose: No nasal discharge. Mouth/Throat: Oral mucosa moist. No obvious lesions in oropharynx. Neck: Limited leftward rotation of head, neck stiffness. Cardiovascular: Bradycardic rate and normal rhythm, no murmur, no JVD or carotid bruits. +S1/S2. Respiratory: Bilateral lungs are clear to auscultation, respirations unlabored, no crackles, no wheezing. No accessory muscle use. Gastrointestinal: Generalized tenderness to palpation of abdomen with guarding noted. Soft, non-distended, no palpable masses. No rebound tenderness. Peristalsis present. Extremities: Symmetrical, no significant deformities. No edema, no cyanosis, no clubbing. 2+ radial pulse bilaterally, 2+ posterior tibial pulse bilaterally. Neuro: No focal deficits observed. Conversant, moving all extremities. No overt cerebellar signs/incoordination. Psychiatric: Cooperative, appropriate affect. Objective Labs 04/20/25 14:53 04/20/25 14:53 Labs: Laboratory Results - last 24 hr 04/20/25 04/20/25 04/21/25 14:53 19:30 05:34 WBC 5.8 RBC 3.86 L Hgb 11.4 L Hct 34.9 L MCV 90 MCH 29.5 MCHC 32.7 RDW Std Deviation 47.3 H Plt Count 262 D Neut % (Auto) 58 Lymph % (Auto) 31 [place] % (Auto) 9 Eos % (Auto) 1 Baso % (Auto) 1 Neut # (Auto) 3.3 Lymph # (Auto) 1.8 [place] # (Auto) 0.5 Eos # (Auto) 0.0 Baso # (Auto) 0.0 Immature Gran # (Auto) 0.04 H Absolute Nucleated RBC 0.00 Immature Gran % 1 H Nucleated RBC % 0 Sodium 144 Potassium 3.9 Chloride 106 Carbon Dioxide 27.2 Anion Gap 11 BUN 20 Creatinine 1.3 Estim Creat Clear Calc 37.7 L eGFR 43 L BUN/Creatinine Ratio 15 Glucose 113 H Calculated Osmolality 290 Calcium 10.2 Corrected Calcium 10.2 H Phosphorus 4.0 Iron 44 L TIBC 463 H Iron Saturation 9 L Unsat Iron Binding 419 H Ferritin 26 AST 20 Lactate Dehydrogenase 184 Total Creatine Kinase 103 Albumin 5.0 H Triglycerides 161 H Cholesterol 157 LDL Cholesterol, Calc 63 HDL Cholesterol 62 H Cholesterol/HDL Ratio 2.5 L Ur Collection Type Clean Catch Urine Color Lt-Yellow Urine Clarity Clear Urine pH 6.0 Ur Specific [place] 1.016 Urine Protein Negative Urine Glucose (UA) Negative Urine Ketones Negative Urine Blood Negative Urine Nitrite Positive Urine Bilirubin Negative Urine Urobilinogen (Auto) Negative Ur Leukocyte Esterase Positive Urine RBC 1 Urine WBC 52 H Ur Squamous Epith Cells 1 Urine Bacteria Rare Quality Measures Quality Measures VTE prophylaxis Advance care planning discussed with:: patient Assessment & Plan Assessment Current Active Medications: Generic Name Dose Route Start Last Admin Trade Name Freq PRN Reason Stop Dose Admin Hydrocodone Bitart/Acetaminophen 1 tab 04/20/25 16:04 04/21/25 05:08 Hydrocodone/Apap 5/325 Tablet PO 04/25/25 16:03 1 tab Q6HR PRN Administration Severe Pain 7-10 Fenofibrate 160mg 0 ea 04/21/25 10:15 04/21/25 11:00 Tablet PO 05/21/25 10:14 Not Given DAILY ROBERT Guanfacine 2mg 0 ea 04/21/25 21:00 Tablet PO 05/21/25 20:59 HS ROBERT Doxepin HCl 25 mg 04/20/25 21:00 04/20/25 20:42 Doxepin Hcl 25 Mg Capsule PO 05/20/25 20:59 25 mg HS ROBERT Administration Gabapentin 600 mg 04/20/25 16:15 04/21/25 05:09 Gabapentin 300 Mg Capsule PO 05/20/25 16:14 600 mg TID ROBERT Administration Heparin Sodium (Porcine) 5,000 unit 04/20/25 21:00 04/21/25 09:27 Heparin Sod Inj 5000 Unit/Ml Vial SC 05/04/25 20:59 5,000 unit Q12HR ROBERT Administration Hydralazine HCl 100 mg 04/20/25 21:00 04/21/25 09:29 Hydralazine Hcl 25 Mg Tablet PO 05/20/25 20:59 100 mg BID ROBERT Administration Hydrochlorothiazide 25 mg 04/20/25 21:00 04/21/25 09:25 Hydrochlorothiazide 12.5 Mg Capsule PO 05/20/25 20:59 25 mg BID ROBERT Administration Meropenem 1,000 mg/ Sodium 50 mls @ 100 mls/hr 04/20/25 16:15 04/21/25 05:09 Chloride IV 04/27/25 16:14 100 mls/hr Q8HR ROBERT Administration Labetalol HCl 200 mg 04/20/25 21:00 04/21/25 09:26 Labetalol 100 Mg Tablet PO 05/20/25 20:59 200 mg BID ROBERT Administration Levothyroxine Sodium 125 mcg 04/21/25 06:00 04/21/25 05:09 Levothyroxine Sodium 125 Mcg Tablet PO 05/21/25 05:59 125 mcg ACBR ROBERT Administration Melatonin 6 mg 04/20/25 19:45 Melatonin 3 Mg Tablet PO 05/20/25 20:59 HS PRN INSOMNIA Nifedipine 30 mg 04/20/25 21:00 04/21/25 09:30 Nifedipine Xl 30 Mg Tabcr PO 05/20/25 20:59 30 mg BID ROBERT Administration Nitroglycerin 0.4 mg 04/20/25 16:21 Nitroglycerin 0.4 Mg Subl Btl #25 SL Q5MIN PRN CHEST PAIN Ondansetron HCl 4 mg 04/21/25 10:38 04/21/25 10:54 Ondansetron Inj 2 Mg/Ml Inj 2 Ml IVP 05/21/25 10:37 4 mg Q8HR PRN Administration NAUSEA OR VOMITING Protocol Pravastatin Sodium 40 mg 04/21/25 09:00 04/21/25 09:25 Pravastatin Sodium 10 Mg Tablet PO 05/21/25 08:59 40 mg QDAY ROBERT Administration Sennosides 1 tab 04/21/25 09:00 04/21/25 09:26 Senna Tablet PO 05/21/25 08:59 1 tab QDAY ROBERT Administration Protocol Plan Josejose mariajesús Slaughter is a 74-year-old female with a PMH of resistant hypertension, hyperlipidemia, mitral stenosis, breast cancer s/p lumpectomy and 2 months of radiation treatment 8 years ago, 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 Patient was admitted to observation for the work-up and management of ESBL UTI. #ESBL UTI #PMH of recurrent UTIs, s/p multiple bladder surgeries Presented on 04/20 with chief complaint of severe dysuria, increased urinary frequency, and pelvic pain which were refractory to outpatient antibiotics (Bactrim, possibly ciprofloxacin) Endorses associated symptoms of nausea, loss of appetite, weakness, paroxysmal fevers, and chills Status post over 9 bladder surgeries which have been ineffective in preventing UTI recurrence Of note, patient had been recently hospitalized on 03/08 with similar complaints and UA from that time was completely bland and final urine culture showed no growth (she also remained afebrile and had no leukocytosis during the entire admission) Upon admission this time, patient is again afebrile and without leukocytosis Dx: -04/20 UA ordered, showed (+) nitrite and LE with pyuria 52 and rare urine bacteria. -04/20 UCx ordered, showed ___ Rx: -Meropenem 1000 mg IV q8HR [04/20--] -ID has been consulted, appreciate recommendations -Urology has been consulted, appreciate recommendations #Resistant hypertension 04/20 admission BP 170/71, on home labetalol 200 mg PO BID, nifedipine 30 mg PO BID, guanfacine 2 mg PO HS, hydrochlorothiazide 25 mg PO qD, hydralazine 100 mg Rx: -Labetalol 200 mg PO BID -Nifedipine 30 mg PO BID -Hydrochlorothiazide 25 mg PO qD -Hydralazine 100 mg PO BID -Guanfacine 2mg PO HS #CKD Stage IIIb 04/20 admission creatinine 1.3 (baseline: 1.3 from 03/10/25), eGFR 43 03/10/25 retroperitoneum US showed small kidneys with bilateral renal cortical thinning and mild renal scarring Rx: -Renally dosed medications -Avoid nephrotoxic agents -Monitor renal function panel #Hyperlipidemia Per prior documentation and patient's own report Patient is on home pravastatin 80 mg PO HS Dx: -04/20 lipid panel ordered, showed high triglycerides 161 and high HDL 62 but otherwise WNL Rx: -Pravastatin 40 mg PO HS #Normocytic anemia #Iron deficiency anemia 04/20 admission Hgb 11.4 (MCV 90, RDW 47.3) Dx: -04/20 iron panel and ferritin ordered, showed low iron and high TIBC w/ lower- range ferritin suggestive of iron deficiency anemia Rx: -Continue to monitor CBC, transfuse if Hgb<7 -Iron supplementation in the out-patient setting (after acute infection resolves) #Hypothyroidism Dx: -04/21 TSH and free T4 ordered, showed ___ Rx: -Levothyroxine 125 mcg PO ACBR #Anxiety/depression Per history Rx: -Doxepin 25 mg PO HS #Chronic pain Per history Rx: -Gabapentin 600 mg PO TID -[place] 5/325 PO q6HR prn for severe pain 7-10 Hospital Management: Disposition: Admitted to observation for the work-up and management of ESBL UTI Diet: Regular GI Prophylaxis: Not Indicated Bowel Prophylaxis: Senna 1 tab PO qD DVT Prophylaxis: Heparin 5K SC q12HR CODE STATUS: Full Code I have examined the patient and conferred with my attending, Dr. Duarte, and my senior resident, Dr. Gates, regarding them. Ilya Strauss, DO PGY-1 Internal Medicine
--- NOTE | 2025-04-21 18:28 | PC.NURSE ---
Dr. Moreno in to see pt
--- NOTE | 2025-04-21 20:45 | ESOP_ITS ---
RE: DEVYN OLIVIER : 1950 DATE OF OPERATION: 04/20/2025 CHIEF COMPLAINT: Recurrent urinary tract infection for the last 30 years. It used to be twice a year before, now almost once a month she is getting recurrent urinary tract infection. 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 The patient has seen several urologists in the past. The patient also has multiple bladder surgeries. COMORBID CONDITIONS ON THIS PATIENT: 1. Hypertension. 2. Hyperlipidemia. 3. Mitral stenosis. 4. Breast cancer status post lumpectomy and 2 months of radiation treatment 8 years ago. She had unspecified neck tumor and had 3 surgery for that. 5. Patient also has hypothyroidism. 6. Patient has a history of anxiety and depression. Because of her recurrent urinary tract infection, the patient had required admission to [facility] as well as to [facility] for IV course of antibiotics. The patient is not observing perineal hygiene, she is wiping back to front. She is unable to reach from behind to observe perineal hygiene. The patient also has total urinary incontinence. The patient had another surgical procedure done for bladder suspension operation in [place] done by Dr. Coombs. I do not have any OR notes to review. When she has history of urinary tract infection, she has symptom of pressure in the pelvic region, nausea, loss of appetite, weakness, and occasional fever. The patient had CAT scan of the abdomen and pelvis done in February. I do not have the report. It was done at [facility] in [place] patient is going to bring me the report of the CAT scan Past medical history, family history, review of the system, and personal history, please refer to patient history form dated 04/20/2025 which is in HPI in EMR. PAST MEDICAL HISTORY: As above. PAST SURGICAL HISTORY: Multiple cystoscopies, multiple bladder suspension operation, right hip replacement, left knee replacement, hysterectomy, lumpectomy for bladder cancer 8 years ago and 3 neck surgeries. PHYSICAL EXAMINATION: General: Condition is satisfactory. Orientation x3. HEENT: Normocephalic, atraumatic. Skin: Warm and dry. Neck: Supple. Trachea central. Thyroid is not enlarged. Extremities: Reveal no edema, cyanosis, or clubbing. Vital Signs: Vital signs are stable, they are in HPI in EMR. Chest: Symmetrical. Heart: Regular rate and rhythm. Abdomen: Soft, nontender. No masses. Liver, spleen, kidney not palpable, no CVA tenderness. Genitalia: Examination of genitalia was deferred. LABORATORY DATA: Various labs her WBCs is 5.8, hemoglobin is 11.4. Serum sodium is 144, potassium 3.9, BUN is 20, creatinine is 1.3. Patient also had a Botox injection in the bladder. ASSESSMENT: This is 74-year-old female, she has multiple medical problems, she also has anxiety and depression. The patient had multiple surgery on her bladder during the last 30 years. She has been getting a extended-spectrum beta-lactamase urinary tract infections. She has been in the hospital twice in the last 2 months and she required IV antibiotics. PLAN: 1. I am recommending perineal hygiene. 2. I will appreciate if I have the report of last operative procedure done in [place] from Dr. Coombs. 3. I also need to review her CAT scan report from [facility]. 4 Hiprax 1 g p.o. twice daily Patient can be started on Estrace vaginal cream 1 gm twice a week per vagina if it is okay with the cold roll operator and oncologist patient has a history of breast cancer 5 follow-up appointment in urology office After I have reviewed records, the patient may need a consultation with Dr. Diane in [place] for urodynamic studies and further recommendation. In the meantime, I am recommending perineal hygiene and treat urinary tract infections only when she is symptomatic. And start on Hiprax 1 g twice a day day for prophylaxis Follow-up appointment in urology office All above issueswere discussed with the patient in detail. I answered her question to her satisfaction. She verbalized understanding. Dr. Farfan thank you very kindly for your consultation and letting me participate in the care of this patient if you have any question please feel free to give me a call at your convenience DT: 18:38:19 TT: 20:44:00 Ref: [id number] - TID: [id number] MTDD
[2025-04-21] MEDS: GUANFACINE 2 MG PO (21:16)
[2025-04-21] MEDS: DOXEPIN HCL 25 MG CAPSULE PO (21:19)
[2025-04-22] VITALS (8 sets, daily range): BP systolic 132–171; BP diastolic 64–72; PULSE 50–60; RESP 14–17; TEMP 36.2–36.5; O2SAT 95–98
[2025-04-22] MEDS: MEROPENEM INJ 1,000 MG in SODIUM CHLORIDE 0.9% (Popper) 50 ML 100 MG IV (06:04)
[2025-04-22] MEDS: LEVOTHYROXINE SODIUM 125 MCG TABLET PO (06:05)
[2025-04-22] MEDS: GABAPENTIN 300 MG CAPSULE 600 MG PO (06:05)
[2025-04-22 06:41] LABS: Free T4 (Free Thyroxine) 1.45 ng/dL (0.89-1.76); Thyroid Stimulating Hormone 0.36 uIU/mL (0.55-4.78)
--- NOTE | 2025-04-22 07:39 | ESPR_ITS ---
<Statement entered by Jason Farfan MD - 04/25/25 17:26> The patient is clinically doing well evaluate the patient with resident physician PGY [address] DR. DE LEON, cultures have been negative hence patient can be discharged on oral antibiotic for likely antibiotic therapy urology consultation was obtained will probably refer to [facility] as an outpatient for urinary incontinence. Documentation for date of: 04/22/25 Subjective Subjective Interval history: Patient seen and examined in hospital bed denies having any concerning cardiac symptoms. Patient's urine cultures are negative for any bacteria; however, she is on IV meropenem. Will de-escalate antibiotics and send patient on long-term antibiotic along with Methenamine hippurate to suppress recurrent UTI. Patient will also follow-up with [facility] urologist as recommended by in-house urology for further management of incontinence. Patient otherwise stable to be discharged from cardiology standpoint. Exam Vital Signs Temp Pulse Resp BP Pulse Ox O2 Del Method 97.4 F 53 L 17 132/72 H 96 Room Air 04/22/25 04:00 04/22/25 04:30 04/22/25 04:00 04/22/25 04:00 04/22/25 04:00 04/22/25 04:00 Narrative Exam General: A/O x3, no acute distress, well-nourished, well-developed Eyes: PERRL, EOMI. Anicteric, vision grossly intact. Ears: No ear pain, no ear discharge, Hearing grossly intact. Nose: No nasal discharge. Mouth/Throat: Moist mucous membranes, no redness, no lesions. Neck: Neck supple, non-tender, no cervical lymphadenopathy. Lungs: Clear JOAN to auscultation and percussion, No accessory muscle use. Cardio: Normal S1/S2, regular rhythm, no murmurs, no JVD or carotid bruits. Abdomen: Soft, non-tender, no palpable masses, peristalsis present, no guarding or rebound. Extremities: Symmetrical, no significant deformities, no peripheral edema , non-tender, peripheral pulses present. Skin: No rashes, no lesions, warm to touch. Neuro: No focal neurological deficits. Psych: Cooperative, appropriate mood and effect. Objective Labs 04/20/25 14:53 04/20/25 14:53 Labs: Laboratory Results - last 24 hr 04/22/25 05:30 TSH 0.36 L Free T4 1.45 Quality Measures Quality Measures VTE prophylaxis Advance care planning discussed with:: patient Assessment & Plan Assessment Current Active Medications: Generic Name Dose Route Start Last Admin Trade Name Freq PRN Reason Stop Dose Admin Hydrocodone Bitart/Acetaminophen 1 tab 04/20/25 16:04 04/21/25 21:35 Hydrocodone/Apap 5/325 Tablet PO 04/25/25 16:03 1 tab Q6HR PRN Administration Severe Pain 7-10 Fenofibrate 160mg 0 ea 04/21/25 10:15 04/21/25 11:00 Tablet PO 05/21/25 10:14 Not Given DAILY ROBERT Guanfacine 2mg 0 ea 04/21/25 21:00 04/21/25 21:16 Tablet PO 05/21/25 20:59 1 tablet HS ROBERT Administration Doxepin HCl 25 mg 04/20/25 21:00 04/21/25 21:19 Doxepin Hcl 25 Mg Capsule PO 05/20/25 20:59 25 mg HS ROBERT Administration Gabapentin 600 mg 04/20/25 16:15 04/22/25 06:05 Gabapentin 300 Mg Capsule PO 05/20/25 16:14 600 mg TID ROBERT Administration Heparin Sodium (Porcine) 5,000 unit 04/20/25 21:00 04/21/25 21:30 Heparin Sod Inj 5000 Unit/Ml Vial SC 05/04/25 20:59 5,000 unit Q12HR ROBERT Administration Hydralazine HCl 100 mg 04/20/25 21:00 04/21/25 21:19 Hydralazine Hcl 25 Mg Tablet PO 05/20/25 20:59 100 mg BID ROBERT Administration Hydrochlorothiazide 25 mg 04/20/25 21:00 04/21/25 21:17 Hydrochlorothiazide 12.5 Mg Capsule PO 05/20/25 20:59 25 mg BID ROBERT Administration Meropenem 1,000 mg/ Sodium 50 mls @ 100 mls/hr 04/20/25 16:15 04/22/25 06:04 Chloride IV 04/27/25 16:14 100 mls/hr Q8HR ROBERT Administration Labetalol HCl 200 mg 04/20/25 21:00 04/21/25 21:17 Labetalol 100 Mg Tablet PO 05/20/25 20:59 200 mg BID ROBERT Administration Levothyroxine Sodium 125 mcg 04/21/25 06:00 04/22/25 06:05 Levothyroxine Sodium 125 Mcg Tablet PO 05/21/25 05:59 125 mcg ACBR ROBERT Administration Melatonin 6 mg 04/20/25 19:45 Melatonin 3 Mg Tablet PO 05/20/25 20:59 HS PRN INSOMNIA Nifedipine 30 mg 04/20/25 21:00 04/21/25 21:18 Nifedipine Xl 30 Mg Tabcr PO 05/20/25 20:59 30 mg BID ROBERT Administration Nitroglycerin 0.4 mg 04/20/25 16:21 Nitroglycerin 0.4 Mg Subl Btl #25 SL Q5MIN PRN CHEST PAIN Ondansetron HCl 4 mg 04/21/25 10:38 04/21/25 20:05 Ondansetron Inj 2 Mg/Ml Inj 2 Ml IVP 05/21/25 10:37 4 mg Q8HR PRN Administration NAUSEA OR VOMITING Protocol Pharmacy Consult 1 each 04/21/25 20:14 Pharmacy To Consult Pneumovacc XX 05/21/25 20:13 PRN PRN CONSULT Pravastatin Sodium 40 mg 04/21/25 09:00 04/21/25 09:25 Pravastatin Sodium 10 Mg Tablet PO 05/21/25 08:59 40 mg QDAY ROBERT Administration Sennosides 1 tab 04/21/25 09:00 04/21/25 09:26 Senna Tablet PO 05/21/25 08:59 1 tab QDAY ROBERT Administration Protocol Plan Patient is 74-year-old F with PMH of resistant HTN, HLD, mitral stenosis, hypothyroidism, CKD stage IIIb, recurrent UTIs, anxiety, depression, chronic pain presenting with burning with urination and dysuria. Admitted for UTI after failing outpatient therapy and management of resistant hypertension. #Resistant hypertension #Hyperlipidemia #Angina pectoralis History of resistant hypertension and angina pectoralis with complete negative workup. Takes multiple home anti-hypertensives, managed by cardiology, Dr. Farfan. Blood pressure usually runs in the 220s systolic at night and becomes symptomatic with severe headache and nausea. Angina pectoralis managed with nitroglycerin. Currently denies headache, chest pain, palpitations or shortness of breath. On home labetalol 200 mg twice daily, nifedipine 30 mg twice daily, hydrochlorothiazide 25 mg twice daily, guanfacine 2 mg p.o. at bedtime, hydralazine 100 mg p.o. twice daily hold if systolic blood pressure less than 150, pravastatin 40 mg daily, fenofibrate 160 mg daily, nitroglycerin SL PRN for chest pain Plan: Resume home medications Cardiology on board for close monitoring of blood pressure #Complicated UTI secondary to ESBL Klebsiella UTI in the setting of bladder prolapse #Recurrent UTI secondary bladder prolapse #CKD stage IIIb #Hypothyroidism #Anxiety/depression #Chronic back pain Plan: Consulted Urology, Dr. Moreno Patient will follow-up with [facility] urology for incontinence Manage as per IM team, patient to be discharged on long-term antibiotics and Methenamine hippurate to suppress recurrent UTI. Patient seen and examined with attending Dr. Adolph De Leon, DO PGY-2 Internal Medicine - [facility]
--- NOTE | 2025-04-22 08:13 | PC.NURSE ---
Pt blood pressure is elevated. 171/70. HR 58. Called Dr. Owens and made aware. No new orders. Will administer morning blood pressure medications and reassess
[2025-04-22] MEDS: FENOFIBRATE 160MG TABLET PO (08:23)
[2025-04-22] MEDS: HEPARIN SOD INJ 5000 UNIT/ML VIAL SC (08:24)
[2025-04-22] MEDS: PRAVASTATIN SODIUM 10 MG TABLET 40 MG PO (08:24)
[2025-04-22] MEDS: LABETALOL 100 MG TABLET 200 MG PO (08:25)
[2025-04-22] MEDS: NIFEdipine XL 30 MG TABCR PO (08:25)
--- NOTE | 2025-04-22 11:00 | PC.NURSE ---
Discharge orders are in. Dr. Hernandez said to hold off on discharge until Dr. Farfan comes to see patient.
[2025-04-22] MEDS: HYDROcodone/APAP 5/325 TABLET 1 TAB PO (11:26)
--- NOTE | 2025-04-22 14:25 | PC.SS ---
Associate Medical Director (CAMERON Rankin met with the patient at the bedside to complete an initial assessment and discuss a discharge plan. Patient is alert and oriented to person, place, time, and situation; patient provided verbal consent to participate in the assessment. The patient has multiple comorbidities; the patient presented to the ED for evaluation of severe dysuria, increased urinary frequency, and pelvic pain. Patient is Oscar Slaughter, , 74 y/o Taiwanese-speaking female residing with at [address] [place] [address]. Patient designated her , Gigi Slaughter, , as his surrogate medical decision maker. Patient is retired and receiving social security benefits. Patient reports baseline is independent with no DME. The patient sees a cold rolling machine setter in [place]; the patient does not have a PCP. Patient's discharge plan is home; will provide transportation. Surrogate medical decision maker: , Gigi Slaughter, Discharge plan: Home
--- NOTE | 2025-04-22 15:31 | ESDS_ITS ---
<Statement entered by Boom Duarte MD - 05/04/25 07:58> I reviewed above note and agree with findings and plans. I have also personally examined the patient with medicine team and went over assessment and plan with medical team including media relations intern and resident physician. Planned Discharge Date 04/22/25 DS: Providers Provider Date of admission: 04/20/25 13:57 Primary care physician: Physician No Primary/Family Admitting Provider: Jason Farfan MD Attending Provider on Admission: Boom Duarte MD Consults: 04/20/25 16:22 Consult to Urology Routine Comment: Recurrent UTI Consulting Provider: Jennifer Moreno Attending Provider on DC: Burak Owens MD Discharging Provider: Burak Owens MD DS: Diagnosis Problem List Completed Was Problem List Reviewed/Reconciled?: Yes Hospital Course Hospital Course Hospital course: A 74-year-old female with past medical history of resistant hypertension, hyperlipidemia, mitral stenosis, hypothyroidism, CKD stage IIIb, recurrent UTIs, multiple bladder surgeries for urinary incontinence (but still persistent), anxiety depression, chronic pain presenting with burning with urination and dysuria. Patient was recently admitted to [facility] on 03/09 for similar complaint of urinary tract infection with multidrug-resistant bacteria; moreover, was discharged with IV PICC line but continues to have symptoms of dysuria. Patient recently had urine studies/culture [facility] completed on 04/11/2025 which showed Klebsiella pneumonia urinary tract infection which is sensitive only to amikacin, gentamicin and ertapenem. Labs done on this admission are within normal limits except low TSH and normal Free T4. Urine analysis showed 52 WBC. Patient was treated with meropenem and continued rest of her home medications. Consulted urologist, Dr. Moreno and he recommended follow-up on outpatient basis with continuation of methenamine hippurate for 6months in 3 months. Urine cultures done in [facility] showed no growth. Recommended to take Fosfomycin 3g every 2 days for 3doses. Patient is discharged to home with the following medications and recommendations -Follow-up with PCP within 1 week of discharge. If you do not have appointment, please follow-up with the [facility] with Dr. Owens. Call [phone] to make an appointment. -Recommended to take methenamine hippurate 1gm twice daily for 6months -Needs to ne on vaginal estrogen but as patient had history of breast cancer needs clearance from OBGYN/Oncologist before starting it -Recommended to follow up with Urologist Dr. Haley within 3 months of discharge -Follow up with appointment with Urologist in [facility] as scheduled -Repeat Throid functions in 6weeks of discharge -Continue to take rest of the home medications -Return to ED if symptoms persist or return #ESBL UTI #Resistant hypertension #CKD Stage IIIb #Hyperlipidemia #Normocytic anemia #Iron deficiency anemia #Hypothyroidism #Anxiety/depression #Chronic pain Patient plan of care was discussed with the attending physician, Dr. Gerald Owens, PGY2 Time Spent with Patient Time attestation: Total time spent providing and/or coordinating discharge services: Time spent: Greater than 30 minutes Exam Vital Signs Temp Pulse Resp BP Pulse Ox O2 Del Method 97.7 F 56 L 17 136/64 H 95 Room Air 04/22/25 12:00 04/22/25 12:15 04/22/25 12:00 04/22/25 12:00 04/22/25 12:00 04/22/25 12:00 Narrative Exam General: Awake. HEENT: Normocephalic, atraumatic, mucous membranes moist. Heart: Regular rate and rhythm, no murmurs. Lungs: Clear to auscultation with no wheezing or crackles. Abdomen: Soft, nondistended, nontender, positive bowel sounds. ?No guarding or rebound tenderness. Neurologic: Alert and oriented x3, no gross neurological deficit, and patient able to move all 4 extremities. Extremities: No edema. Skin: No rash or ecchymoses. Discharge Plan Plan Patient Disposition: HOME (Self Care) Patient condition on transfer: Stable Care Plan Goals: -Follow-up with PCP within 1 week of discharge. If you do not have appointment, please follow-up with the [facility] with Dr. Owens. Call [phone] to make an appointment. -Recommended to take methenamine hippurate 1gm twice daily for 6months -Needs to ne on vaginal estrogen but as patient had history of breast cancer needs clearance from OBGYN/Oncologist before starting it -Recommended to follow up with Urologist Dr. Haley within 3 months of discharge -Follow up with appointment with Urologist in [facility] as scheduled -Repeat Throid functions in 6weeks of discharge -Continue to take rest of the home medications -Return to ED if symptoms persist or return Prescriptions/Referrals Prescriptions/Med Rec: New methenamine hippurate 1 gram tablet 1 g PO BID Qty: 30 3RF methenamine hippurate 1 gram tablet 1 g PO BID Qty: 30 2RF fosfomycin tromethamine 3 gram packet 1 packet PO Q OTHER DAY Qty: 3 0RF Rx Instructions: Take 1dose every 2days for 3doses Continued fenofibrate 160 mg tablet 160 mg PO DAILY Patient Comments: TAKE 1 TABLET BY MOUTH EVERY DAY FOR 90 DAYS gabapentin 300 mg capsule 300 mg PO TID Patient Comments: TAKE 3 CAPSULES BY MOUTH 3 TIMES A DAY nifedipine 30 mg tablet extended release 30 mg PO BID hydrochlorothiazide 25 mg tablet 25 mg PO BID Patient Comments: TAKE 1 TABLET BY MOUTH EVERY DAY IN THE MORNING FOR 90 DAYS hydrocodone-acetaminophen 10-325 mg tablet 1 tab PO Q4H PRN (Reason: pain) Patient Comments: TAKE 1 TABLET BY MOUTH EVERY 4-6 HOURS NEEDED levothyroxine 150 mcg tablet 150 mcg PO DAILY Patient Comments: TAKE 1 TABLET BY MOUTH EVERY DAY IN THE MORNING ON EMPTY STOMACH FOR 90 DAYS ondansetron 4 mg tablet,disintegrating 4 mg PO Q8H PRN (Reason: nausea and vomiting) Patient Comments: DISSOLVE 1 TO 2 TABLETS BY MOUTH EVERY 8 HOURS NEEDED FOR NAUSEA AND VOMITING tizanidine 4 mg capsule 4 mg PO HS PRN (Reason: muscle spasticity) Patient Comments: TAKE 1 CAPSULE BY MOUTH EVERY DAY AT BEDTIME NEEDED doxepin 50 mg capsule 50 mg PO HS Patient Comments: TAKE 1 CAPSULE BY MOUTH EVERYDAY AT BEDTIME hydralazine 100 mg tablet 100 mg PO BID Patient Comments: TAKE 1 TABLET BY MOUTH 3 TIMES A DAY labetalol 200 mg tablet 200 mg PO BID Patient Comments: TAKE 1 TABLET BY MOUTH TWICE A DAY FOR 90 DAYS pravastatin 80 mg tablet 80 mg PO HS Patient Comments: TAKE 1 TABLET BY MOUTH EVERYDAY AT BEDTIME guanfacine 2 mg tablet 2 mg PO HS Patient Comments: TAKE 1 TABLET BY MOUTH EVERY DAY AT BEDTIME FOR 90 DAYS Referrals: Jennifer Moreno MD [Physician, Urology] No Primary/Family,Physician [Primary Care Provider] Jason Farfan MD [Physician, Cardiology] Patient/Caregiver Discharge Instructions Education Materials: Anatomy of the Female Urinary Tract, Urinary Tract Infections in Women, Understanding Urinary Tract ..., When to Use Antibiotics Print Language: Guamanian Stand Alone Forms: Radha Award Info., Patient Portal Info Letter Discharge Order Discharge Orders: Discharge (Routine); Ordered 04/22/25 Ordered By: Burak Owens Quality Discharge Quality Measures VTE prophylaxis
== END 2025-04-22 13:57 | disposition home or self-care (01) | DRG 690 ==
PROVIDERS: Admitting Provider Internal Medicine Cardiovascular Disease; Visit Provider Internal Medicine
DX: N39.0 Urinary tract infection, site not specified (principal); Z16.12 Extended spectrum beta lactamase (ESBL) resistance; Z16.24 Resistance to multiple antibiotics; G89.29 Other chronic pain; F41.9 Anxiety disorder, unspecified; F32.A Depression, unspecified; I12.9 Hypertensive chronic kidney disease with stage 1 through stage 4 chronic kidney disease, or unspecified chronic kidney disease; N18.32 Chronic kidney disease, stage 3b; Z85.3 Personal history of malignant neoplasm of breast; I05.0 Rheumatic mitral stenosis; E03.9 Hypothyroidism, unspecified; E78.5 Hyperlipidemia, unspecified; M54.9 Dorsalgia, unspecified; B96.1 Klebsiella pneumoniae [K. pneumoniae] as the cause of diseases classified elsewhere; I1A.0 Resistant hypertension; D63.1 Anemia in chronic kidney disease; D50.9 Iron deficiency anemia, unspecified; Z87.440 Personal history of urinary (tract) infections; N27.1 Small kidney, bilateral; Z90.710 Acquired absence of both cervix and uterus; I20.9 Angina pectoris, unspecified; Z96.652 Presence of left artificial knee joint; Z96.641 Presence of right artificial hip joint; Z79.890 Hormone replacement therapy; Z79.2 Long term (current) use of antibiotics; Z79.899 Other long term (current) drug therapy
CPT/HCPCS: 36415; 80061; 80069; 81001; 82550; 82728; 83540; 83550; 83615; 84439; 84443; 84450; 85025; 87086; J1644; J2185; J2405; J7050; A9270

== ENCOUNTER 2025-05-29 12:37 | Inpatient (IN) | payer MEDICARE, SELFPAY ==
[2025-05-29] VITALS (7 sets, daily range): BP systolic 123–153; BP diastolic 63–74; PULSE 55–62; RESP 14–20; TEMP 36.7–37.1; O2SAT 94–97; BMI 29.3
--- NOTE | 2025-05-29 12:56 | PD.EDRME ---
Rapid Medical Screening Exam [facility] Arrival date/time: 05/29/25 12:37 74-year-old female with a history of hypothyroidism, hyperlipidemia, hypertension, presents to the emergency room with a chief complaint of a UTI due to Klebsiella pneumoniae. Patient was sent to the emergency room by her primary care provider as she is resistant to most antibiotics and will need IV antibiotics to treat this urinary tract infection. I have greeted and performed a focused initial assessment of this patient. A comprehensive ED assessment and evaluation of the patient, analysis of all test results, and completion of the medical decision making process will be conducted by additional ED providers. Chief Complaint: Urogenital-Female Vital signs: Vital Signs Temperature 98.1 F 05/29/25 12:48 Pulse Rate 60 05/29/25 12:48 Respiratory Rate 20 05/29/25 12:48 Blood Pressure 123/74 05/29/25 12:48 Pulse Oximetry (%) 95 05/29/25 12:48 Oxygen Delivery Method Room Air 05/29/25 12:48 Vital signs reviewed by provider: Yes Exam: Clear bilateral lung sounds Soft nontender abdomen Clinical Impression: UTI
[2025-05-29 13:26] LABS: Collection Type, Urine Clean Catch
--- NOTE | 2025-05-29 13:35 | EDNOTE_ITS ---
<Statement entered by Ivette Real MD - 05/30/25 17:49> As co-signing physician, I was present and available for consult prn. I concur with the plan and care as documented by the midlevel provider. ED General RME/HPI General Chief complaint: Urogenital-Female Stated complaint: NEEDS IV ATB FOR UTI PER DR. FERGUSON Time Seen by Provider: 05/29/25 13:33 Arrival date/time: 05/29/25 12:37 CC: Urinary tract infection HPI patient presents to the ER with a copy of her microanalysis of her urine. The patient has Klebsiella that is resistant to everything except meropenem and amikacin. Patient's case was discussed with Dr. Ferguson, her digital product specialist of long time, who is requesting she be admitted for several days of meropenem before she has appointment at a large tertiary center for further evaluation. RME / HPI RME / HPI narrative: 05/29/25 12:37 74-year-old female with a history of hypothyroidism, hyperlipidemia, hypertension, presents to the emergency room with a chief complaint of a UTI due to Klebsiella pneumoniae. Patient was sent to the emergency room by her primary care provider as she is resistant to most antibiotics and will need IV antibiotics to treat this urinary tract infection. I have greeted and performed a focused initial assessment of this patient. A comprehensive ED assessment and evaluation of the patient, analysis of all test results, and completion of the medical decision making process will be conducted by additional ED providers. Exam: Clear bilateral lung sounds Soft nontender abdomen Impression: UTI Related Data Home Medications ?Medication ?Instructions ?Recorded ?Confirmed doxepin 50 mg capsule 50 mg PO HS 03/08/25 5 fenofibrate 160 mg tablet 160 mg PO DAILY 03/08/2512/07 gabapentin 300 mg capsule 300 mg PO TID 03/08/2504/20 guanfacine 2 mg tablet 2 mg PO HS 03/08/25 04/20/25 hydralazine 100 mg tablet 100 mg PO BID 03/08/2504/20 hydrochlorothiazide 25 mg tablet 25 mg PO BID 03/08/25 04/20/25 hydrocodone 10 mg-acetaminophen 1 tab PO Q4H PRN pain 03/08/25 04/20/25 325 mg tablet labetalol 200 mg tablet 200 mg PO BID 03/08/2504/20 levothyroxine 150 mcg tablet 150 mcg PO DAILY 03/08/25 04/20/25 nifedipine 30 mg tablet,extended 30 mg PO BID 03/08/25 04/20/25 release ondansetron 4 mg disintegrating 4 mg PO Q8H PRN nausea and vomiting 03/08/25 04/20/25 tablet pravastatin 80 mg tablet 80 mg PO HS 03/08/25 5 tizanidine 4 mg capsule 4 mg PO HS PRN muscle spasti city 03/08/25 04/20/25 Previous Rx's ?Medication ?Instructions ?Recorded fosfomycin tromethamine 3 gram 1 packet PO Q OTHER DAY 3 doses #3 04/22/25 oral packet ea methenamine hippurate 1 gram tablet 1 g PO BID #30 tab s 04/22/25 methenamine hippurate 1 gram tablet 1 g PO BID #30 tab s 04/22/25 Allergies Allergy/AdvReac Type Severity Reaction Status Date / Time No Known Allergies Allergy Verified 05/29/25 12:41 Past Medical History Past Medical History NEUROLOGIC: Negative Neurological Disorders CARDIAC: Positive Cardiac Disorders, Angina, Hypercholesterolemia and Hypertension; Negative Congestive Heart Failure RESPIRATORY: Negative Chronic Obstructive Pulmonary Disease (COPD) GASTROINTESTINAL: Negative Hepatitis or Colorectal Cancer GENITOURINARY: Negative Renal Disease REPRODUCTIVE: Negative Breast Cancer MUSCULOSKELETAL: Positive Musculoskeletal Disorders (Chronic pain); Negative Bone Cancer ENDOCRINE: Positive Endocrine Disorders and Hypothyroidism; Negative Diabetes Mellitus Type 1 or Diabetes Mellitus Type 2 HEMATOLOGIC: Negative Blood Disorders PSYCHO/SOCIAL: Positive Depression and Anxiety OTHER HISTORY: Positive Hospitalization; Negative Autoimmune Disease, Falls, Anesthesia Reactions, MRSA, VRSA, Vancomycin-Resistant Enterococci, Human Immunodeficiency Virus (HIV), Chicken Pox, Measles, Mumps, Rubella (Pashto Measles), Pertussis, Clostridium Difficile, Cancer, Breast Cancer, Cervical Cancer, Colorectal Cancer, Lung Cancer or Ovarian Cancer Family History FAMILY HISTORY: Negative Family Psychiatric Problems, Family Respiratory Disorders, Family Cardiac Disorders, Family Gastrointestinal Problems, Family Cancer, Family Surgery or Family Anesthesia Reaction Surgical History SURGICAL: Negative Endocrine Surgery or Thyroidectomy Social History SMOKING STATUS: Never smoker ED Exam Narrative Physical exam: [General: Obese not in cot no acute distress Head normocephalic HEENT: Within acceptable limits Neck is supple nontender Chest equal chest rise nontender to palpation Respiratory: Clear to auscultation no wheezes crackles or rubs CV: Rate rhythm is regular no murmurs rubs or clicks Abdomen is distended secondary to body habitus soft nontender no masses positive bowel sounds all 4 quadrants Back: No CVA tenderness no spinous process tenderness from cervical spine thoracic and lumbar spine Skin: Intact no petechiae rash induration ulceration or crepitus Extremities: Moving all extremity against resistance cap refill less than 2 seconds neurosensory intact Neuro: Awake alert oriented x3 Glascow coma 15 no focal deficits] Course Course Course Narrative: Patient's case was discussed with Dr. Ferguson who came down to the ER and rounded on her. Patient's case discussed with resident for Dr. Frost who agrees to accept the patient for admission for drug-resistant UTI and IV antibiotic and administration. Patient is in agreement with this plan. Quality Measures none Orders Category Date Time Status Insert IV STAT Care 05/29/25 12:55 Active Consult to Cardiology Stat Cons 05/29/25 13:47 Ordered CBC Stat Lab 05/29/25 14:15 Completed CMP [Comprehensive Metabolic Panel] Stat Lab 05/29/25 14:15 Completed UA, C/S IF [Urinalysis, C/S if Indicated] Stat Lab 05/29/25 13:10 Completed Meropenem Inj [Merrem Inj] 1,000 mg Med 05/29/25 21:00 Discontinued SODIUM CHLORIDE 0.9% (Popper) [Ns 0.9% (P)] 50 ml IV Q12HR Ondansetron Odt [Zofran Odt] Med 05/29/25 13:41 Discontinued 4 mg PO X1 ONE Vital Signs Vital signs: Vital Signs Temperature 98.1 F 05/29/25 12:48 Pulse Rate 60 05/29/25 12:48 Respiratory Rate 20 05/29/25 12:48 Blood Pressure 123/74 05/29/25 12:48 Pulse Oximetry (%) 95 05/29/25 12:48 Oxygen Delivery Method Room Air 05/29/25 12:48 Discharge Plan Plan Patient Disposition: Other Care w/in Hosp ([facility]/RENEE) Patient condition on transfer: Stable Problem List Clinical Impression: UTI due to Klebsiella species DYLON/VIJAY Supervising Physician DYLON/RAT EXTERMINATOR Supervising Physician: Nathaniel Mittal ENP [facility] Clinical Information Provided by: patient Medical Records reviewed [facility] Medication Administration(s) Medication Administration History Discontinued Medications Meropenem 1,000 mg/ Sodium (Chloride) 50 mls @ 100 mls/hr IV Q12HR ROBERT Stop: 06/05/25 20:59 Meropenem 1,000 mg/ Sodium (Chloride) 50 mls @ 100 mls/hr IV X1 ONE Stop: 05/29/25 14:33 Last Admin: 05/29/25 14:52 Dose: 100 mls/hr Documented By: LUIS Ondansetron HCl (Ondansetron Odt 4 Mg Tabrap) 4 mg PO X1 ONE; Protocol Stop: 05/29/25 13:42 Last Admin: 05/29/25 14:52 Dose: 4 mg Documented By: LUIS
[2025-05-29 14:06] LABS: Bacteria,Urine 1+; Bilirubin,Urine Negative (Negative); Blood,Urine Negative (Negative); Color,Urine Drk-Yellow (Lt Yel-Yel); Culture Indicated,Urine Contaminated; Glucose, Urine Negative (Negative); Ketones,Urine Negative (Negative); Leukocyte Esterase,Urine Positive (Negative); Nitrite,Urine Negative (Negative); PH,Urine 6.0 (5.0-7.0); Protein,Urine 1+ (Neg - Trace); RBC,Urine 16 /hpf (0-3); Specific Gravity,Urine 1.034 (1.001-1.035); Squamous Epithelial Cell,Urine 32 /hpf (0-5); Transitional Epi Cells,Urine 10 /hpf (0-5); Urobilinogen,Urine 2.0 mg/dL (0.0-1.0); WBC,Urine 2009 /hpf (0-5)
[2025-05-29 14:11] LABS: Clarity,Urine Turbid (Clear/Hazy)
[2025-05-29 14:33] LABS: Basophils # (Auto) 0.1 Thou/mm3 (0.0-0.2); Basophils % (Auto) 1 % (0-2.5); Eosinophils # (Auto) 0.1 Thou/mm3 (0.0-0.5); Eosinophils % (Auto) 1 % (0-10); Hematocrit 36.0 % (36.0-46.0); Hemoglobin 11.2 g/dL (12.0-16.0); Immature Granulocytes Auto 0.04 Thou/mm3 (0.00-0.00); Lymphocytes # (Auto) 1.5 Thou/mm3 (1.0-4.8); Lymphocytes % (Auto) 19 % (10-50); Mean Corpuscular HGB Conc 31.1 g/dl (31.0-37.0); Mean Corpuscular Hemoglobin 28.8 pg (25.0-35.0); Mean Corpuscular Volume 93 fL (80-100); Monocytes # (Auto) 0.6 Thou/mm3 (0.0-0.8); Monocytes % (Auto) 7 % (0-12); Neutrophils # (Auto) 5.7 Thou/mm3 (1.8-7.7); Neutrophils % (Auto) 71 % (37-80); Nucleated Red Blood Cell # 0.00 Thou/mm3 (0.00-0.00); Nucleated Red Blood Cell % 0 /100 WBC (0); Platelet Count 214 Thou/mm3 (140-440); RDW Standard Deviation 47.6 fL (36.4-46.3); Red Blood Count 3.89 Miln/mm3 (4.00-5.20); White Blood Count 8.0 Thou/mm3 (3.6-11.0)
[2025-05-29] MEDS: MEROPENEM INJ 1,000 MG in SODIUM CHLORIDE 0.9% (Popper) 50 ML 100 MG IV ×2 (14:52→21:58)
[2025-05-29] MEDS: ONDANSETRON ODT 4 MG TABRAP PO (14:52)
[2025-05-29 14:58] LABS: Alanine Aminotransferase 17 U/L (10-49); Albumin, Serum 4.8 gm/dL (3.4-4.8); Albumin/Globulin Ratio 2.1 (1.2-2.2); Alkaline Phosphatase 30 U/L (46-116); Anion Gap 11 (7-16); Aspartate Amino Transferase 23 U/L (0-34); BUN/Creatinine Ratio 13 Ratio (12-20); Bilirubin,Total 0.2 mg/dL (0.3-1.2); Blood Urea Nitrogen 22 mg/dL (9-23); Calcium 9.5 mg/dL (8.3-10.6); Calcium (Corrected) 9.5 mg/dL (8.5-10.1); Carbon Dioxide 27.2 mMol/L (20.0-31.0); Chloride 105 mMol/L (98-107); Creatinine (Component) 1.7 mg/dL (0.6-1.3); Estimated Creatinine Clearance 29.3 mL/min (>60); Globulin 2.3 gm/dL (2.3-3.5); Glucose 103 mg/dL (74-106); Osmolality,Calculated 288 (275-295); Potassium 4.4 mMol/L (3.4-5.1); Sodium 143 mMol/L (136-145); Total Protein 7.1 gm/dL (5.7-8.2); eGFR 31 See Note
--- NOTE | 2025-05-29 16:18 | ESCONSULT_ITS ---
<Statement entered by Jason Farfan MD - 06/03/25 18:38> I personally evaluated examined this patient was very well-known to me for many years has longstanding history of severe labile hypertension and recurrent urinary tract infection multiple multiple surgeries for bladder prolapse in the ED and bladder surgeries and has recurrent hospitalization for ESBL Klebsiella not sensitive to any antibiotics of meropenem admitted to hospital again with recurrent urine tract infection labile hypertension evaluate patient with resident physician Dr. Nava PGY2 agree with the treatment plan recommendation as documented blood pressure medication will be resumed and monitor for good blood pressure control patient may require urology consult and possible intervention patient scheduled to have a consult at [facility] in June 2025. Agree with treatment plan recommendations by resident team as well as Dr. Nava's recommendation for hypertension management HPI Data of Consult Patient: known to practice within the last 3 years Consult date: 05/29/25 Requesting Physician: Tiffany Kirk MD Admitting Provider: Tiffany Kirk MD Attending Provider: Tiffany Kirk MD Primary Care Provider: Physician No Primary/Family Consult Narrative Reason for consult: Hypertension hx History of present illness: Patient is 74 yr female with PMH of resistant hypertension, hyperlipidemia, mitral stenosis, hypothyroidism, CKD stage IIIb, recurrent UTIs, multiple bladder surgeries for urinary incontinence (but still persistent), anxiety depression presenting to ED due to dysuria. Patient has extensive history of recurrent UTIs since the past 30 years. She has been referred to specialist in [place]. Currently awaiting to see urologist for further workup and recommendations. Patient is experiencing dysuria and throbbing sensation in pelvic region. Was recently discharged after treated with IV antibiotics. Urine culture from 1 week ago grew Klebsiella pneumonia and sensitive to only IV antibiotic. She has severe incontinence and needs to wear pads all times. Has tried multiple medical therapies including prophylactic antibiotics that she is to take daily. This treatment also did not help in symptoms. Patient denies any headache, chest pain, shortness of breath or palpitations. No recent illness. Patient will be admitted for complicated UTI requiring IV meropenem. Vitals in the ED are stable., UA consistent with UTI positive leukocyte esterase, WBC 2009. WBC 8.0, creatinine 1.7. Past medical history: As above Past surgical history: Multiple cystoplasty (over 9), right hip replacement, left knee replacement, hysterectomy, lumpectomy for breast cancer 8 years ago, and 3 neck surgeries Allergies: No known drug allergies Meds: Doxepin, fenofibrate 160 mg daily, hydralazine 100 twice daily, hydrochlorothiazide 25 mg daily, labetalol 200 twice daily, levothyroxine 150 mcg, nifedipine 30 twice daily, pravastatin 80 mg daily. Family history: Dad had T2DM, mom had lung cancer (heavy smoker) Social history: Social drinking, no tobacco or illicit drug use including THC cc:: cc: Tiffany Kirk MD Review of Systems Review of Systems Systems Reviewed: All systems reviewed, normal except as documented Exam Vital Signs Temp Pulse Resp BP Pulse Ox O2 Del Method 98.1 F 60 20 123/74 95 Room Air 05/29/25 12:48 05/29/25 12:48 05/29/25 12:48 05/29/25 12:48 05/29/25 12:48 05/29/25 12:48 Narrative Exam General: Alert and oriented x3. No acute distress, cooperative HEENT: NCAT, No JVD noted. Mucosa moist. Pupils are equal and reactive to light bilaterally Cardiovascular: Normal S1 and S2. Regular rate and rhythm. Respiratory: Lungs are clear to auscultation bilaterally. No wheezing or crackles heard. Abdomen: Soft, nontender, not distended, normal bowel sounds. Skin: Warm to touch, dry, no rashes noted Musculoskeletal: No gross injuries. Able to move all 4 extremities. No pitting edema Neuro: Alert and oriented x3. No focal neuro deficits. Psych: Normal affect and mood Results Labs 05/29/25 14:15 05/29/25 14:15 Labs: Short CBC 05/29/25 Range/Units 14:15 WBC 8.0 (3.6-11.0) Thou/mm3 Hgb 11.2 L (12.0-16.0) g/dL Hct 36.0 (36.0-46.0) % Plt Count 214 D (140-440) Thou/mm3 BMP 05/29/25 14:15 Sodium 143 Potassium 4.4 Chloride 105 Carbon Dioxide 27.2 BUN 22 Creatinine 1.7 H Glucose 103 Calcium 9.5 Liver Function 05/29/25 Range/Units 14:15 Total Bilirubin 0.2 L (0.3-1.2) mg/dL AST 23 (0-34) U/L ALT 17 (10-49) U/L Alkaline Phosphatase 30 L (46-116) U/L Albumin 4.8 (3.4-4.8) gm/dL Urine 05/29/25 Range/Units 13:10 Urine Color Drk-Yellow A (Lt Yel-Yel) Urine Clarity Turbid A (Clear/Hazy) Urine pH 6.0 (5.0-7.0) Ur Specific [place] 1.034 (1.001-1.035) Urine Protein 1+ A (Neg - Trace) Urine Glucose (UA) Negative (Negative) Quality Measures Quality Measures none Advance care planning discussed with:: patient Medications Home Medications and Allergies Home Medications ?Medication ?Instructions ?Recorded ?Confirmed ?Type doxepin 50 mg capsule 50 mg PO HS 03/08/25 5 History fenofibrate 160 mg tablet 160 mg PO DAILY 03/08/25 History gabapentin 300 mg capsule 300 mg PO TID 03/08/2505/29 History guanfacine 2 mg tablet 2 mg PO HS 03/08/25 05/29/25 History hydralazine 100 mg tablet 100 mg PO BID 03/08/2505/29 History hydrochlorothiazide 25 mg tablet 25 mg PO BID 03/08/25 05/29/25 History hydrocodone 10 mg-acetaminophen 1 tab PO Q4H PRN pain 03/08/25 05/29/25 History 325 mg tablet labetalol 200 mg tablet 200 mg PO BID 03/08/2505/29 History levothyroxine 150 mcg tablet 150 mcg PO DAILY 03/08/25 05/29/25 History nifedipine 30 mg tablet,extended 30 mg PO BID 03/08/25 05/29/25 History release ondansetron 4 mg disintegrating 4 mg PO Q8H PRN nausea and vomiting 03/08/25 04/20/25 History tablet pravastatin 80 mg tablet 80 mg PO HS 03/08/25 5 History tizanidine 4 mg capsule 4 mg PO HS PRN muscle spasti city 03/08/25 05/29/25 History Allergies Allergy/AdvReac Type Severity Reaction Status Date / Time No Known Allergies Allergy Verified 05/29/25 12:41 Visit Medications Discontinued Medications Meropenem 1,000 mg/ Sodium (Chloride) 50 mls @ 100 mls/hr IV Q12HR ROBERT Stop: 06/05/25 20:59 Meropenem 1,000 mg/ Sodium (Chloride) 50 mls @ 100 mls/hr IV X1 ONE Stop: 05/29/25 14:33 Last Infusion: 05/29/25 15:50 Dose: Infused Ondansetron HCl (Ondansetron Odt 4 Mg Tabrap) 4 mg PO X1 ONE; Protocol Stop: 05/29/25 13:42 Last Admin: 05/29/25 14:52 Dose: 4 mg Assessment & Plan Plan Patient is 74 yr female with PMH of resistant hypertension, hyperlipidemia, mitral stenosis, hypothyroidism, CKD stage IIIb, recurrent UTIs, multiple bladder surgeries for urinary incontinence (but still persistent), anxiety depression presenting to ED due to dysuria. Patient will be admitted for complicated UTI requiring IV meropenem. #Resistant hypertension #Hyperlipidemia History of resistant hypertension and angina pectoralis with complete negative workup. Takes multiple home anti-hypertensives, managed by cardiology, Dr. Farfan. Blood pressure well-controlled in the ED, 123/74. She takes fenofibrate 160 mg daily, hydralazine 100 twice daily, hydrochlorothiazide 25 mg daily, labetalol 200 twice daily, nifedipine 30 twice daily, pravastatin 80 mg daily. -resume all home medications -monitor vitals # Complicated UTI, ESBL Klebsiella #Recurrent UTI #Incontinence Patient has extensive history of recurrent UTIs since the past 30 years. She has been referred to specialist in [place]. Currently awaiting to see urologist for further workup and recommendations. Patient is experiencing dysuria and throbbing sensation in pelvic region. Was recently discharged after treated with IV antibiotics. Urine culture from 1 week ago grew Klebsiella pneumonia and sensitive to only IV antibiotic. UA consistent with UTI positive leukocyte esterase, WBC 2009. WBC 8.0, creatinine 1.7. - IV meropenem #CKD stage IIIb #Hypothyroidism #Anxiety/depression #Chronic back pain Primary care team to manage above conditions and ongoing care needs. The patient's management plan was discussed with my attending physician Dr. Farfan. Leanna Reyna, PGY-2
--- NOTE | 2025-05-29 17:18 | ESHP_ITS ---
<Statement entered by Gerardo Gomes MD - 05/29/25 21:10> Note reviewed and agree with care plan as documented. Please refer to the note below for further details. Plan discussed with attending physician Dr. Margot Gomes MD PGY-2 Internal Medicine Documentation for date of: 05/29/25 HPI History of Present Illness Chief complaint: UTI, ESBL History of present illness: Patient is a 74-year-old female with past medical history of recurrent/resistant UTIs, hypothyroidism, hyperlipidemia, resistant hypertension, mitral stenosis, chronic pain, CKD, anxiety, depression urinary incontinence who presents to the ED at [facility] with a chief complaint of UTI due to resistant Klebsiella. Patient went to [facility] in [place] and was placed on antibiotics and over the counter medicine there and had cultures taken there, was shown to be resistant. Patient has been to [facility] multiple times for the last few months for recurrent UTIs. Patient states she has been dealing with bladder and UTI problems for the last 30 years. Patient endorses urinary retention which occasionally relieved with a 'pop' feeling followed by urination. Also endorses throbbing pelvic pain, feeling cold, suprapubic pain, dysuria, frequency, incontinence Past Medical History: Above Family history not applicable Surgical history: 9 bladder surgeries, Multiple hip replacements, neck surgery, knee replacement, hysterectomy Social history: Occasional alcohol use, never used tobacco or any illicit drugs. Allergies: adhesive tape Medication Nexium 24-hour, doxepin 50 mg 1 per night, tizanidine 4 mg once per night, Betina- Theo once per day, levothyroxine 150 mcg once per day, fenofibrate 160 mg once per day, pravastatin 80 mg once per day, Morven 10-325 mg every 4 to 6 hours as needed, gabapentin 300 mg 3 times per day, guanfacine 2 mg once per night, HCTZ 25 mg/day, nifedipine 30 mg once per day, labetalol 200 mg twice per day, hydralazine 100 mg once per day, flonase On admission, vitals were blood pressure 123/74, pulse 60, respirations 20, temperature 98.1 ?F, oxygen saturation 95% on room air. Labs on admission significant for hemoglobin 11.2, RDW 47.6, creatinine 1.7, eGFR 31, urinalysis showed dark yellow turbid, 1+ protein, 16 RBCs, 2009 WBCs, 32 squamous epithelium, 10 transition epithelium, 1+ bacteria, leukocyte esterase positive In the ED, patient was given zofran 4 mg x1 and meropenem 1000 mg x1. Patient was admitted for evaluation and management of resistant UTI Review of Systems Review of systems otherwise negative except what is mentioned above. Exam Vital Signs Temp Pulse Resp BP Pulse Ox O2 Del Method 98.1 F 60 20 123/74 95 Room Air 05/29/25 12:48 05/29/25 12:48 05/29/25 12:48 05/29/25 12:48 05/29/25 12:48 05/29/25 12:48 Narrative Exam General: No acute distress; A&Ox3 Skin: Warm, dry, intact, no obvious rash. HENT: NCAT, EOMI/PERRL, not icteric. External ears normal. No rhinorrhea. Moist mucous membranes Cardiovascular: Regular rate and rhythm, no murmur, +S1/S2. Respiratory: Lungs CTAB GI: Soft, nontender, non-distended. No guarding or rebound tenderness. : Mild suprapubic tenderness. No flank tenderness bilaterally. Extremities: no edema, no cyanosis, no clubbing. Extremity pulses present Neuro: Grossly nonfocal. Moving all 4 extremities. CN not formally tested but appear grossly intact. Psychiatric: Cooperative, appropriate affect. Results: Labs 06/01/25 04:20 06/01/25 04:20 Labs: Short CBC 05/29/25 Range/Units 14:15 WBC 8.0 (3.6-11.0) Thou/mm3 Hgb 11.2 L (12.0-16.0) g/dL Hct 36.0 (36.0-46.0) % Plt Count 214 D (140-440) Thou/mm3 BMP 05/29/25 14:15 Sodium 143 Potassium 4.4 Chloride 105 Carbon Dioxide 27.2 BUN 22 Creatinine 1.7 H Glucose 103 Calcium 9.5 Liver Function 05/29/25 Range/Units 14:15 Total Bilirubin 0.2 L (0.3-1.2) mg/dL AST 23 (0-34) U/L ALT 17 (10-49) U/L Alkaline Phosphatase 30 L (46-116) U/L Albumin 4.8 (3.4-4.8) gm/dL Urine 05/29/25 Range/Units 13:10 Urine Color Drk-Yellow A (Lt Yel-Yel) Urine Clarity Turbid A (Clear/Hazy) Urine pH 6.0 (5.0-7.0) Ur Specific [place] 1.034 (1.001-1.035) Urine Protein 1+ A (Neg - Trace) Urine Glucose (UA) Negative (Negative) Quality Measures Quality Measures VTE prophylaxis Advance care planning discussed with:: patient Medications Home Medications and Allergies Home Medications ?Medication ?Instructions ?Recorded ?Confirmed ?Type doxepin 50 mg capsule 50 mg PO HS 03/08/25 5 History fenofibrate 160 mg tablet 160 mg PO DAILY 03/08/25 History gabapentin 300 mg capsule 900 mg PO TID 03/08/2505/31 History guanfacine 2 mg tablet 2 mg PO HS 03/08/25 05/29/25 History hydralazine 100 mg tablet 100 mg PO BID 03/08/2505/29 History hydrochlorothiazide 25 mg tablet 25 mg PO BID 03/08/25 05/29/25 History hydrocodone 10 mg-acetaminophen 1 tab PO Q4H PRN pain 03/08/25 05/29/25 History 325 mg tablet labetalol 200 mg tablet 200 mg PO BID 03/08/2505/29 History levothyroxine 150 mcg tablet 150 mcg PO DAILY 03/08/25 05/29/25 History nifedipine 30 mg tablet,extended 30 mg PO BID 03/08/25 05/29/25 History release ondansetron 4 mg disintegrating 4 mg PO Q8H PRN nausea and vomiting 03/08/25 05/29/25 History tablet pravastatin 80 mg tablet 80 mg PO HS 03/08/25 5 History tizanidine 4 mg capsule 4 mg PO HS PRN muscle spasti [place] 03/08/25 05/29/25 History Allergies Allergy/AdvReac Type Severity Reaction Status Date / Time No Known Allergies Allergy Verified 05/29/25 12:41 Visit Medications Acetaminophen (Acetaminophen 325 Mg Tablet) 650 mg PO Q6H PRN PRN Reason: Fever >100.5 or pain 1-3 Stop: 06/28/25 17:05 Hydrocodone Bitart/Acetaminophen (Hydrocodone/Apap 10/325 Tab) 1 tab PO Q4HR PRN PRN Reason: PAIN SCALE 7-10 (Severe Stop: 06/03/25 17:05 Heparin Sodium (Porcine) (Heparin Sod Inj 5000 Unit/Ml Vial) 5,000 unit SC Q8HR ROBERT Stop: 06/12/25 21:59 Oxycodone/Acetaminophen (Oxycodone/Apap 5/325 Tablet) 1 tab PO Q6H PRN PRN Reason: PAIN SCALE 4-6 (Moderate Stop: 06/03/25 17:05 Discontinued Medications Meropenem 1,000 mg/ Sodium (Chloride) 50 mls @ 100 mls/hr IV Q12HR ROBERT Stop: 06/05/25 20:59 Meropenem 1,000 mg/ Sodium (Chloride) 50 mls @ 100 mls/hr IV X1 ONE Stop: 05/29/25 14:33 Last Infusion: 05/29/25 15:50 Dose: Infused Ondansetron HCl (Ondansetron Odt 4 Mg Tabrap) 4 mg PO X1 ONE; Protocol Stop: 05/29/25 13:42 Last Admin: 05/29/25 14:52 Dose: 4 mg Assessment & Plan Plan Patient is a 74-year-old female with past medical history of recurrent/resistant UTIs, hypothyroidism, hyperlipidemia, resistant hypertension, mitral stenosis, chronic pain, CKD, anxiety, depression urinary incontinence who presents to the ED at [facility] with a chief complaint of UTI due to resistant Klebsiella. Patient was admitted for evaluation and management of UTI resistant to oral antibiotics. #UTI #ESBL Klebsiella pneumoniae #History of recurrent UTI in setting of recurrent urological procedures Patient has long history of urinary and bladder problems since ; endorses dysuria, frequency Endorsed throbbing pelvic pain; history of 9 bladder surgeries; noted to have had poor perineal hygiene on chart review. Patient most recent Urine culture from [facility] in [place] showed Klebsiella pneumoniae esbl sensitive only to meropepnem and amikacin UA at [facility] showed dark yellow turbid, 1+ protein, 16 RBCs, 2009 WBCs, 32 squamous epithelium, 10 transition epithelium, 1+ bacteria, leukocyte esterase positive No elevation in wbc; afebrile -started meropenem 1000 mg IV q8hr -urology Dr. Moreno consulted, appreciate recs -CT Abd/Pelvis w/ con -Bladder scan as needed -urine culture ordered #HTN, resistant home meds of hydralazine 100 mg po bid, hctz 25 mg po bid, labetalol 200 mg po bid, nifedipine 30 mg po bid BP in good range on admission -restarted said home meds -will continue to monitor -cardiology Dr. Farfan consulted, appreciate recs #hypothyroidism home med of levothyroxine sodium 150 mcg po acbr -resumed said home med -tsh ordered am #LILA? on CKD Patient has history of ckd stage 3b egfr 31 on admission Cr of 1.7 on admission, baseline 1.3-1.6? Unsure who maltster is -will continue to monitor, #HLD home meds of fenofibrate 160 mg po qd, pravastatin 80 mg po hs -restarted said home meds -lipid panel am orderd #chronic pain #anxiety #depression home meds of doxepin 50 mg po hs, gabapentin 300 mg po tid, norco 10/325 po q6h prn, tizanidine 4 mg po hs prn -restarted said home meds #history of osteoarthritis states she is followed up outpatient for it #mitral stenosis follows with Dr. Farfan, gambling counsellor Hospital Management: Disposition: med surg, ESBL Klebsiella UTI Diet: cardiac GI Prophylaxis: none Bowel Prophylaxis: none DVT Prophylaxis: heparin CODE STATUS: full code Patient plan of care was discussed with the attending physician, Dr. Frost & senior resident Dr. Eliseo Muniz MD PGY-1 Attending Provider Attestation/Addendum I have examined the patient, reviewed labs and imaging findings, discussed the case with the resident(s), and reviewed entered orders. I agree with the plan of care as outlined in this note, with these additional summaries/recommendations: After examination of the patient and review of the clinical data, I feel that this patient needs admission to the hospital for further treatment and evaluation. Dr. Margot MD
--- NOTE | 2025-05-29 18:09 | XR_ITS ---
Examination: CT abdomen and pelvis without contrast. Coronal 3-D reconstructions. Sagittal 2-D reconstructions. Date and time of exam: May 29, 2025, 1943 hours INDICATIONS: Right lower abdominal pain with frequent urination today CTDI: vol (mGy): 8.58 DLP: (mGycm): 476 Technique: Axial images of the abdomen have been obtained, 3 mm slice thickness Intravenous contrast material has not been administered. Low dose protocols were performed. One or more of the following dose reduction techniques were used; automated exposure control, adjustment of the mA and/or KV according to patient size, use of iterative reconstruction technique. Findings: No visualized liver or splenic lesion Absent gallbladder No pancreatic or adrenal mass Moderate renal scar formation, no hydronephrosis or renal calculi Aorta normal size No pericecal inflammatory change Colonic diverticulosis Right hip arthroplasty reduces detail in the pelvis Air in the urinary bladder Prominent osteopenia Grade 1 anterolisthesis L4 on L5 Pelvic floor laxity IMPRESSION: Moderate renal scar formation, no hydronephrosis renal or ureteral calculi No CT findings of appendicitis or bowel obstruction Colonic diverticulosis, no diverticulitis Pelvic floor laxity
[2025-05-29] MEDS: PRAVASTATIN SODIUM 10 MG TABLET 80 MG PO ×2 (18:49→21:58)
[2025-05-29] MEDS: NIFEdipine XL 30 MG TABCR PO (18:52)
[2025-05-29] MEDS: LABETALOL 100 MG TABLET 200 MG PO (18:53)
[2025-05-29] MEDS: GABAPENTIN 300 MG CAPSULE PO (18:54)
[2025-05-29 21:11] LABS: Collection Type, Urine Clean Catch
[2025-05-29 21:23] LABS: Amorphous Crystals,Urine Present (Absent); Bilirubin,Urine Negative (Negative); Blood,Urine Negative (Negative); Color,Urine Yellow (Lt Yel-Yel); Glucose, Urine Negative (Negative); Ketones,Urine Trace (Negative); Leukocyte Esterase,Urine Positive (Negative); Nitrite,Urine Negative (Negative); PH,Urine 5.5 (5.0-7.0); Protein,Urine 1+ (Neg - Trace); RBC,Urine 87 /hpf (0-3); Specific Gravity,Urine 1.025 (1.001-1.035); Squamous Epithelial Cell,Urine 6 /hpf (0-5); Urobilinogen,Urine Negative mg/dL (0.0-1.0); WBC,Urine 2316 /hpf (0-5)
[2025-05-29 21:29] LABS: Clarity,Urine Turbid (Clear/Hazy)
[2025-05-29] MEDS: DOXEPIN HCL 25 MG CAPSULE 50 MG PO (21:58)
[2025-05-30] VITALS (11 sets, daily range): BP systolic 110–139; BP diastolic 50–70; PULSE 52–71; RESP 16–18; TEMP 36.2–37.1; O2SAT 93–96; BMI 29.2
--- NOTE | 2025-05-30 00:29 | PC.NURSE ---
Dr. Delcid notified regarding new urinalysis results.
[2025-05-30] MEDS: GABAPENTIN 300 MG CAPSULE PO ×3 (05:19→21:13)
[2025-05-30] MEDS: LEVOTHYROXINE SODIUM 125 MCG, LEVOTHYROXINE SODIUM 25 MCG 150 MCG PO (05:19)
[2025-05-30] MEDS: MEROPENEM INJ 1,000 MG in SODIUM CHLORIDE 0.9% (Popper) 50 ML 100 MG IV ×2 (05:19→21:14)
[2025-05-30 05:53] LABS: Basophils # (Auto) 0.0 Thou/mm3 (0.0-0.2); Basophils % (Auto) 1 % (0-2.5); Eosinophils # (Auto) 0.1 Thou/mm3 (0.0-0.5); Eosinophils % (Auto) 2 % (0-10); Hematocrit 34.9 % (36.0-46.0); Hemoglobin 11.1 g/dL (12.0-16.0); Immature Granulocytes Auto 0.02 Thou/mm3 (0.00-0.00); Lymphocytes # (Auto) 1.5 Thou/mm3 (1.0-4.8); Lymphocytes % (Auto) 30 % (10-50); Mean Corpuscular HGB Conc 31.8 g/dl (31.0-37.0); Mean Corpuscular Hemoglobin 29.4 pg (25.0-35.0); Mean Corpuscular Volume 92 fL (80-100); Monocytes # (Auto) 0.5 Thou/mm3 (0.0-0.8); Monocytes % (Auto) 9 % (0-12); Neutrophils # (Auto) 3.0 Thou/mm3 (1.8-7.7); Neutrophils % (Auto) 58 % (37-80); Nucleated Red Blood Cell # 0.00 Thou/mm3 (0.00-0.00); Nucleated Red Blood Cell % 0 /100 WBC (0); Platelet Count 216 Thou/mm3 (140-440); RDW Standard Deviation 46.5 fL (36.4-46.3); Red Blood Count 3.78 Miln/mm3 (4.00-5.20); White Blood Count 5.2 Thou/mm3 (3.6-11.0)
[2025-05-30 06:23] LABS: INR 1.0 (0.9-1.3); Partial Thromboplastin Time 24.8 Seconds (22.0-36.0); Prothrombin Time 10.9 Seconds (9.0-12.2)
[2025-05-30 06:24] LABS: Alanine Aminotransferase 16 U/L (10-49); Albumin, Serum 4.5 gm/dL (3.4-4.8); Albumin/Globulin Ratio 2.0 (1.2-2.2); Alkaline Phosphatase 29 U/L (46-116); Anion Gap 12 (7-16); Aspartate Amino Transferase 22 U/L (0-34); BUN/Creatinine Ratio 14 Ratio (12-20); Bilirubin,Total 0.2 mg/dL (0.3-1.2); Blood Urea Nitrogen 23 mg/dL (9-23); Calcium 9.5 mg/dL (8.3-10.6); Calcium (Corrected) 9.5 mg/dL (8.5-10.1); Carbon Dioxide 26.1 mMol/L (20.0-31.0); Cardiac Risk Estimate 2.5 RATIO (3.7-5.6); Chloride 106 mMol/L (98-107); Cholesterol 166 mg/dL (132-200); Creatinine (Component) 1.6 mg/dL (0.6-1.3); Estimated Creatinine Clearance 31.1 mL/min (>60); Globulin 2.2 gm/dL (2.3-3.5); Glucose 109 mg/dL (74-106); HDL Cholesterol 66 mg/dL (40-60); LDL Cholesterol,Calculated 67 mg/dL (0-130); Magnesium 1.6 mg/dL (1.6-2.6); Osmolality,Calculated 291 (275-295); Phosphorous 5.2 mg/dL (2.4-5.1); Potassium 3.9 mMol/L (3.4-5.1); Sodium 144 mMol/L (136-145); Thyroid Stimulating Hormone 0.92 uIU/mL (0.55-4.78); Total Protein 6.7 gm/dL (5.7-8.2); Triglycerides 164 mg/dL (30-150); eGFR 34 See Note
[2025-05-30] MEDS: NIFEdipine XL 30 MG TABCR PO ×2 (08:44→21:12)
[2025-05-30] MEDS: LABETALOL 100 MG TABLET 200 MG PO ×2 (08:45→21:12)
[2025-05-30] MEDS: MAGNESIUM OXIDE 400 MG TABLET PO (08:46)
--- NOTE | 2025-05-30 10:50 | ESPR_ITS ---
<Statement entered by Gerardo Gomes MD - 05/30/25 14:07> No acute overnight events. Seen and examined at bedside and patient was standing comfortably in her room. States that her dysuria is improving but continues to have cloudy urine. Otherwise has no complaints at this time. Vital signs stable. CBC and CHEM panel largely unremarkable other than chronically elevated creatinine, likely has CKD. Obtain CT A/P and noted to have pelvic floor laxity, which likely contributes to her chronic/recurrent UTIs. Urine cultures pending. Consult also placed for urology. Patient expressing concerns regarding her blood pressure but she has been normotensive and will hold on to her BP meds. Will follow-up cultures and continue meropenem. ----- Note reviewed and agree with care plan as documented. Please refer to the note below for further details. Plan discussed with attending physician Dr. Margot Gomes MD PGY-2 Internal Medicine Documentation for date of: 05/30/25 Subjective Subjective Interval history: NAEO. Patient stated slept poorly, had some angina last night that resolved; complained of dizziness this morning BP 110/50 this morning -> 120/58. Continuing BP meds, watching patient closely Continuing meropenem 1 g, changed to BID with ckd CT AP showed pelvic floor laxity Exam Vital Signs Temp Pulse Resp BP Pulse Ox O2 Del Method 97.7 F 61 16 120/58 L 95 Room Air 05/30/25 08:00 05/30/25 08:45 05/30/25 08:00 05/30/25 08:45 05/30/25 08:00 05/30/25 08:00 Narrative Exam General: No acute distress; A&Ox3 Skin: Warm, dry, intact, no obvious rash. HENT: NCAT, EOMI/PERRL, not icteric. External ears normal. No rhinorrhea. Moist mucous membranes Cardiovascular: Regular rate and rhythm, no murmur, +S1/S2. Respiratory: Lungs CTAB GI: Soft, nontender, non-distended. No guarding or rebound tenderness. : Mild suprapubic tenderness. No flank tenderness bilaterally. Extremities: no edema, no cyanosis, no clubbing. Extremity pulses present Neuro: Grossly nonfocal. Moving all 4 extremities. CN not formally tested but appear grossly intact. Psychiatric: Cooperative, appropriate affect. Objective Labs 05/30/25 05:13 05/30/25 05:13 Labs: Laboratory Results - last 24 hr 05/29/25 05/29/25 05/29/25 13:10 14:15 21:00 WBC 8.0 RBC 3.89 L Hgb 11.2 L Hct 36.0 MCV 93 MCH 28.8 MCHC 31.1 RDW Std Deviation 47.6 H Plt Count 214 D Neut % (Auto) 71 Lymph % (Auto) 19 [place] % (Auto) 7 Eos % (Auto) 1 Baso % (Auto) 1 Neut # (Auto) 5.7 Lymph # (Auto) 1.5 [place] # (Auto) 0.6 Eos # (Auto) 0.1 Baso # (Auto) 0.1 Immature Gran # (Auto) 0.04 H Absolute Nucleated RBC 0.00 Immature Gran % 1 H Nucleated RBC % 0 PT INR APTT Sodium 143 Potassium 4.4 Chloride 105 Carbon Dioxide 27.2 Anion Gap 11 BUN 22 Creatinine 1.7 H Estim Creat Clear Calc 29.3 L eGFR 31 L BUN/Creatinine Ratio 13 Glucose 103 Calculated Osmolality 288 Calcium 9.5 Corrected Calcium 9.5 Phosphorus Magnesium Total Bilirubin 0.2 L AST 23 ALT 17 Alkaline Phosphatase 30 L Total Protein 7.1 Albumin 4.8 Globulin 2.3 Albumin/Globulin Ratio 2.1 Triglycerides Cholesterol LDL Cholesterol, Calc HDL Cholesterol Cholesterol/HDL Ratio TSH Ur Collection Type Clean Catch Clean Catch Urine Color Drk-Yellow A Yellow Urine Clarity Turbid A Turbid A Urine pH 6.0 5.5 Ur Specific [place] 1.034 1.025 Urine Protein 1+ A 1+ A Urine Glucose (UA) Negative Negative Urine Ketones Negative Trace Urine Blood Negative Negative Urine Nitrite Negative Negative Urine Bilirubin Negative Negative Urine Urobilinogen (Auto) 2.0 Negative Ur Leukocyte Esterase Positive Positive Urine RBC 16 H 87 H Urine WBC 2009 H 2316 H Ur Squamous Epith Cells 32 H 6 H Ur Transition Epith Cell 10 H Amorphous Crystals Present A Urine Bacteria 1+ A None Ur Culture Indicated? Contaminated 05/30/25 05:13 WBC 5.2 RBC 3.78 L Hgb 11.1 L Hct 34.9 L MCV 92 MCH 29.4 MCHC 31.8 RDW Std Deviation 46.5 H Plt Count 216 Neut % (Auto) 58 Lymph % (Auto) 30 [place] % (Auto) 9 Eos % (Auto) 2 Baso % (Auto) 1 Neut # (Auto) 3.0 Lymph # (Auto) 1.5 [place] # (Auto) 0.5 Eos # (Auto) 0.1 Baso # (Auto) 0.0 Immature Gran # (Auto) 0.02 H Absolute Nucleated RBC 0.00 Immature Gran % 0 Nucleated RBC % 0 PT 10.9 INR 1.0 APTT 24.8 Sodium 144 Potassium 3.9 D Chloride 106 Carbon Dioxide 26.1 Anion Gap 12 BUN 23 Creatinine 1.6 H Estim Creat Clear Calc 31.1 L eGFR 34 L BUN/Creatinine Ratio 14 Glucose 109 H Calculated Osmolality 291 Calcium 9.5 Corrected Calcium 9.5 Phosphorus 5.2 H Magnesium 1.6 Total Bilirubin 0.2 L AST 22 ALT 16 Alkaline Phosphatase 29 L Total Protein 6.7 Albumin 4.5 Globulin 2.2 L Albumin/Globulin Ratio 2.0 Triglycerides 164 H Cholesterol 166 LDL Cholesterol, Calc 67 HDL Cholesterol 66 H Cholesterol/HDL Ratio 2.5 L TSH 0.92 Ur Collection Type Urine Color Urine Clarity Urine pH Ur Specific [place] Urine Protein Urine Glucose (UA) Urine Ketones Urine Blood Urine Nitrite Urine Bilirubin Urine Urobilinogen (Auto) Ur Leukocyte Esterase Urine RBC Urine WBC Ur Squamous Epith Cells Ur Transition Epith Cell Amorphous Crystals Urine Bacteria Ur Culture Indicated? Quality Measures Quality Measures VTE prophylaxis Advance care planning discussed with:: patient Assessment & Plan Assessment Current Active Medications: Generic Name Dose Route Start Last Admin Trade Name Freq PRN Reason Stop Dose Admin Acetaminophen 650 mg 05/29/25 17:06 Acetaminophen 325 Mg Tablet PO 06/28/25 17:05 Q6H PRN Fever >100.5 or pain 1-3 Hydrocodone Bitart/Acetaminophen 1 tab 05/29/25 17:43 05/30/25 10:25 Hydrocodone/Apap 10/325 Tab PO 06/03/25 17:42 1 tab Q6H PRN Administration PAIN SCALE 4-10(Mod-Sev Doxepin HCl 50 mg 05/29/25 21:00 05/29/25 21:58 Doxepin Hcl 25 Mg Capsule PO 06/28/25 20:59 50 mg HS ROBERT Administration Fenofibrate 145 mg 05/30/25 09:00 05/30/25 08:46 Fenofibrate 145 Mg Tablet (Non-Formulary) PO 06/29/25 08:59 Not Given DAILY ROBERT Gabapentin 300 mg 05/29/25 18:00 05/30/25 05:19 Gabapentin 300 Mg Capsule PO 06/28/25 17:59 300 mg TID ROBERT Administration Guanfacine HCl 2 mg 05/29/25 21:00 Guanfacine Hcl 1 Mg Tablet (Non-Formulary) PO 06/28/25 20:59 HS ROBERT Heparin Sodium (Porcine) 5,000 unit 05/29/25 22:00 05/30/25 05:20 Heparin Sod Inj 5000 Unit/Ml Vial SC 06/12/25 21:59 Not Given Q8HR ROBERT Hydralazine HCl 100 mg 05/29/25 18:00 05/30/25 08:43 Hydralazine Hcl 25 Mg Tablet PO 06/28/25 17:59 100 mg BID ROBERT Administration Hydrochlorothiazide 25 mg 05/29/25 18:00 05/30/25 08:44 Hydrochlorothiazide 12.5 Mg Capsule PO 06/28/25 17:59 25 mg BID ROBERT Administration Meropenem 1,000 mg/ Sodium 50 mls @ 100 mls/hr 05/30/25 21:00 Chloride IV 06/06/25 20:59 BID ROBERT Labetalol HCl 200 mg 05/29/25 18:00 05/30/25 08:45 Labetalol 100 Mg Tablet PO 06/28/25 17:59 200 mg BID ROBERT Administration Levothyroxine Sodium 125 mcg/ 150 mcg 05/30/25 06:00 05/30/25 05:19 Levothyroxine Sodium 25 mcg PO 06/29/25 05:59 150 mcg ACBR ROBERT Administration Nifedipine 30 mg 05/29/25 18:00 05/30/25 08:44 Nifedipine Xl 30 Mg Tabcr PO 06/28/25 17:59 30 mg BID ROBERT Administration Oxycodone/Acetaminophen 1 tab 05/29/25 17:06 Oxycodone/Apap 5/325 Tablet PO 06/03/25 17:05 On Hold: 05/29/25 19:38 Q6H PRN Comment: DUPLICATE PAIN SCALE PAIN SCALE 4-6 (Moderate Protocol Pravastatin Sodium 80 mg 05/29/25 18:00 05/29/25 21:58 Pravastatin Sodium 10 Mg Tablet PO 06/28/25 17:59 80 mg HS ROBERT Administration Tizanidine HCl 4 mg 05/29/25 17:43 05/29/25 22:00 Tizanidine Hcl 2 Mg Tablet PO 06/28/25 17:42 4 mg HS PRN Administration Muscle Spasticity Plan Patient is a 74-year-old female with past medical history of recurrent/resistant UTIs, hypothyroidism, hyperlipidemia, resistant hypertension, mitral stenosis, chronic pain, CKD, anxiety, depression urinary incontinence who presents to the ED at [facility] with a chief complaint of UTI due to resistant Klebsiella. Patient was admitted for evaluation and management of UTI resistant to oral antibiotics; on meropenem 1000 mg BID. #UTI #ESBL Klebsiella pneumoniae #History of recurrent UTI in setting of recurrent urological procedures Patient has long history of urinary and bladder problems since ; endorses dysuria, frequency Endorsed throbbing pelvic pain; history of 9 bladder surgeries; noted to have had poor perineal hygiene on chart review. Patient most recent Urine culture from [facility] [place] showed Klebsiella pneumoniae esbl sensitive only to meropepnem and amikacin UA at [facility] showed dark yellow turbid, 1+ protein, 16 RBCs, 2009 WBCs, 32 squamous epithelium, 10 transition epithelium, 1+ bacteria, leukocyte esterase positive No elevation in wbc; afebrile CT AP showed pelvic floor laxity -meropenem 1000 mg IV q8hr -> q12hr -urology Dr. Moreno consulted, appreciate recs -Bladder scan as needed -urine culture repeat pending #HTN, resistant home meds of hydralazine 100 mg po bid, hctz 25 mg po bid, labetalol 200 mg po bid, nifedipine 30 mg po bid BP in good range on admission -restarted said home meds -will continue to monitor -cardiology Dr. Farfan consulted, appreciate recs #hypothyroidism home med of levothyroxine sodium 150 mcg po acbr -resumed said home med -tsh ordered am #LILA? on CKD Patient has history of ckd stage 3b egfr 31 on admission Cr of 1.7 on admission, baseline 1.3-1.6? 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 Hernandez & senior resident Dr. Eliseo Muniz MD PGY-1 Attending Provider Attestation/Addendum I, Devora Hernandez, , attest that I was physically present for the [place] portions of the service and evaluated the patient with the resident and I reviewed and discussed the case with the resident and agree with the resident's findings and plans of care as documented above Patient seen and evaluated this AM. at bedside. Patient states that she has undergone 9 bladder surgeries due to recurrent UTI. She states that she has an appointment to go to [place] in June for revision of her pelvic floor dysfunction. Reviewed outpatient urine culture that shows ESBL Klebsiella sensitive to carbapenems. Pending in house urine cultures. Continue with meropenem, decreased dosage from TID to BID due to renal function.
--- NOTE | 2025-05-30 15:27 | PC.SS ---
Patient is alert/oriented. Patient resides with her . Admitted for aspiration/pneumonia. Patient is independent with ADL's. No DME. PCP: Dr. Fritz. Pharmacy: [facility]/[place]. Patient follows up with a pain management clinic in [place]. Pending urine cultures. D/c plan is to return home. No further d/c needs. alt medical decision maker: , Gigi Slaughter,
--- NOTE | 2025-05-30 15:56 | ESPR_ITS ---
<Statement entered by Jason Farfan MD - 06/03/25 18:38> I personally examined evaluate the patient with PGY 2 Dr. Nava patient is doing better still slightly elevated creatinine not have any chest pain shortness breath urinary tract symptoms are improving receiving IV meropenem. Blood pressure generally controlled much better not having shortness of breath chest pain some nausea reported. I agree with the treatment plan recommendation as documented by PGY 2 Dr. Nava will continue to monitor the patient while in the hospital Documentation for date of: 05/30/25 Subjective Subjective Interval history: Patient is 74 yr female with PMH of resistant hypertension, hyperlipidemia, mitral stenosis, hypothyroidism, CKD stage IIIb, recurrent UTIs, multiple bladder surgeries for urinary incontinence (but still persistent), anxiety depression presenting to ED due to dysuria. Patient has extensive history of recurrent UTIs since the past 30 years. She has been referred to specialist in [place]. Currently awaiting to see urologist for further workup and recommendations. Patient is experiencing dysuria and throbbing sensation in pelvic region. Was recently discharged after treated with IV antibiotics. Urine culture from 1 week ago grew Klebsiella pneumonia and sensitive to only IV antibiotic. She has severe incontinence and needs to wear pads all times. Has tried multiple medical therapies including prophylactic antibiotics that she is to take daily. This treatment also did not help in symptoms. Patient denies any headache, chest pain, shortness of breath or palpitations. No recent illness. Patient will be admitted for complicated UTI requiring IV meropenem. Vitals in the ED are stable., UA consistent with UTI positive leukocyte esterase, WBC 2009. WBC 8.0, creatinine 1.7. 05/30: Patient examined at bedside. Has no major complaints states that she is feeling better in terms of her dysuria since starting the IV antibiotics. Her incontinence has slightly improved with less pressure in pelvic area and bladder. No hesitancy when starting urination. Meropenem renally dosed for LILA. Creatinine is 1.6. Magnesium 1.6, replete with 4 g. Urine cultures are still pending. Vitals were reviewed and stable. Primary care team has consulted urology for patient case. Blood pressure well-controlled, continue meds as prescribed outpatient. Exam Vital Signs Temp Pulse Resp BP Pulse Ox O2 Del Method 97.2 F 63 18 127/60 95 Room Air 05/30/25 12:00 05/30/25 12:00 05/30/25 12:00 05/30/25 12:00 05/30/25 12:00 05/30/25 12:00 Narrative Exam General: Alert and oriented x3. No acute distress, cooperative HEENT: NCAT, No JVD noted. Mucosa moist. Pupils are equal and reactive to light bilaterally Cardiovascular: Normal S1 and S2. Regular rate and rhythm. Respiratory: Lungs are clear to auscultation bilaterally. No wheezing or crackles heard. Abdomen: Soft, nontender, not distended, normal bowel sounds. Skin: Warm to touch, dry, no rashes noted Musculoskeletal: No gross injuries. Able to move all 4 extremities. No pitting edema Neuro: Alert and oriented x3. No focal neuro deficits. Psych: Normal affect and mood Objective Labs 05/30/25 05:13 05/30/25 05:13 Labs: Laboratory Results - last 24 hr 05/29/25 05/30/25 21:00 05:13 WBC 5.2 RBC 3.78 L Hgb 11.1 L Hct 34.9 L MCV 92 MCH 29.4 MCHC 31.8 RDW Std Deviation 46.5 H Plt Count 216 Neut % (Auto) 58 Lymph % (Auto) 30 [place] % (Auto) 9 Eos % (Auto) 2 Baso % (Auto) 1 Neut # (Auto) 3.0 Lymph # (Auto) 1.5 [place] # (Auto) 0.5 Eos # (Auto) 0.1 Baso # (Auto) 0.0 Immature Gran # (Auto) 0.02 H Absolute Nucleated RBC 0.00 Immature Gran % 0 Nucleated RBC % 0 PT 10.9 INR 1.0 APTT 24.8 Sodium 144 Potassium 3.9 D Chloride 106 Carbon Dioxide 26.1 Anion Gap 12 BUN 23 Creatinine 1.6 H Estim Creat Clear Calc 31.1 L eGFR 34 L BUN/Creatinine Ratio 14 Glucose 109 H Calculated Osmolality 291 Calcium 9.5 Corrected Calcium 9.5 Phosphorus 5.2 H Magnesium 1.6 Total Bilirubin 0.2 L AST 22 ALT 16 Alkaline Phosphatase 29 L Total Protein 6.7 Albumin 4.5 Globulin 2.2 L Albumin/Globulin Ratio 2.0 Triglycerides 164 H Cholesterol 166 LDL Cholesterol, Calc 67 HDL Cholesterol 66 H Cholesterol/HDL Ratio 2.5 L TSH 0.92 Ur Collection Type Clean Catch Urine Color Yellow Urine Clarity Turbid A Urine pH 5.5 Ur Specific [place] 1.025 Urine Protein 1+ A Urine Glucose (UA) Negative Urine Ketones Trace Urine Blood Negative Urine Nitrite Negative Urine Bilirubin Negative Urine Urobilinogen (Auto) Negative Ur Leukocyte Esterase Positive Urine RBC 87 H Urine WBC 2316 H Ur Squamous Epith Cells 6 H Amorphous Crystals Present A Urine Bacteria None Quality Measures Quality Measures VTE prophylaxis Advance care planning discussed with:: patient Assessment & Plan Assessment Current Active Medications: Generic Name Dose Route Start Last Admin Trade Name Freq PRN Reason Stop Dose Admin Acetaminophen 650 mg 05/29/25 17:06 Acetaminophen 325 Mg Tablet PO 06/28/25 17:05 Q6H PRN Fever >100.5 or pain 1-3 Hydrocodone Bitart/Acetaminophen 1 tab 05/29/25 17:43 05/30/25 10:25 Hydrocodone/Apap 10/325 Tab PO 06/03/25 17:42 1 tab Q6H PRN Administration PAIN SCALE 4-10(Mod-Sev Doxepin HCl 50 mg 05/29/25 21:00 05/29/25 21:58 Doxepin Hcl 25 Mg Capsule PO 06/28/25 20:59 50 mg HS ROBERT Administration Fenofibrate 145 mg 05/30/25 09:00 05/30/25 08:46 Fenofibrate 145 Mg Tablet (Non-Formulary) PO 06/29/25 08:59 Not Given DAILY ROBERT Gabapentin 300 mg 05/29/25 18:00 05/30/25 14:33 Gabapentin 300 Mg Capsule PO 06/28/25 17:59 300 mg TID ROBERT Administration Guanfacine HCl 2 mg 05/29/25 21:00 Guanfacine Hcl 1 Mg Tablet (Non-Formulary) PO 06/28/25 20:59 HS ROBERT Heparin Sodium (Porcine) 5,000 unit 05/29/25 22:00 05/30/25 14:33 Heparin Sod Inj 5000 Unit/Ml Vial SC 06/12/25 21:59 Not Given Q8HR ROBERT Hydralazine HCl 100 mg 05/29/25 18:00 05/30/25 08:43 Hydralazine Hcl 25 Mg Tablet PO 06/28/25 17:59 100 mg BID ROBERT Administration Hydrochlorothiazide 25 mg 05/29/25 18:00 05/30/25 08:44 Hydrochlorothiazide 12.5 Mg Capsule PO 06/28/25 17:59 25 mg BID ROBERT Administration Meropenem 1,000 mg/ Sodium 50 mls @ 100 mls/hr 05/30/25 21:00 Chloride IV 06/06/25 20:59 BID ROBERT Labetalol HCl 200 mg 05/29/25 18:00 05/30/25 08:45 Labetalol 100 Mg Tablet PO 06/28/25 17:59 200 mg BID ROBERT Administration Levothyroxine Sodium 125 mcg/ 150 mcg 05/30/25 06:00 05/30/25 05:19 Levothyroxine Sodium 25 mcg PO 06/29/25 05:59 150 mcg ACBR ROBERT Administration Nifedipine 30 mg 05/29/25 18:00 05/30/25 08:44 Nifedipine Xl 30 Mg Tabcr PO 06/28/25 17:59 30 mg BID ROBERT Administration Oxycodone/Acetaminophen 1 tab 05/29/25 17:06 Oxycodone/Apap 5/325 Tablet PO 06/03/25 17:05 On Hold: 05/29/25 19:38 Q6H PRN Comment: DUPLICATE PAIN SCALE PAIN SCALE 4-6 (Moderate Protocol Pravastatin Sodium 80 mg 05/29/25 18:00 05/29/25 21:58 Pravastatin Sodium 10 Mg Tablet PO 06/28/25 17:59 80 mg HS ROBERT Administration Tizanidine HCl 4 mg 05/29/25 17:43 05/29/25 22:00 Tizanidine Hcl 2 Mg Tablet PO 06/28/25 17:42 4 mg HS PRN Administration Muscle Spasticity Plan Patient is 74 yr female with PMH of resistant hypertension, hyperlipidemia, mitral stenosis, hypothyroidism, CKD stage IIIb, recurrent UTIs, multiple bladder surgeries for urinary incontinence (but still persistent), anxiety depression presenting to ED due to dysuria. Patient will be admitted for complicated UTI requiring IV meropenem. #Resistant hypertension #Hyperlipidemia History of resistant hypertension and angina pectoralis with complete negative workup. Takes multiple home anti-hypertensives, managed by cardiology, Dr. Farfan. Blood pressure well-controlled in the ED, 123/74. She takes fenofibrate 160 mg daily, hydralazine 100 twice daily, hydrochlorothiazide 25 mg daily, labetalol 200 twice daily, nifedipine 30 twice daily, pravastatin 80 mg daily. -resume all home medications -monitor vitals # Complicated UTI, ESBL Klebsiella #Recurrent UTI #Incontinence Patient has extensive history of recurrent UTIs since the past 30 years. She has been referred to specialist in [place]. Currently awaiting to see urologist for further workup and recommendations. Patient is experiencing dysuria and throbbing sensation in pelvic region. Was recently discharged after treated with IV antibiotics. Urine culture from 1 week ago grew Klebsiella pneumonia and sensitive to only IV antibiotic. UA consistent with UTI positive leukocyte esterase, WBC 2009. WBC 8.0, creatinine 1.7. - IV meropenem -Ucx pending #CKD stage IIIb #Hypothyroidism #Anxiety/depression #Chronic back pain Primary care team to manage above conditions and ongoing care needs. The patient's management plan was discussed with my attending physician Dr. Farfan. Leanna Reyna, PGY-2
[2025-05-30] MEDS: GUANFACINE HCL 1 MG 2 MG PO (21:10)
[2025-05-30] MEDS: PRAVASTATIN SODIUM 10 MG TABLET 80 MG PO (21:12)
[2025-05-30] MEDS: DOXEPIN HCL 25 MG CAPSULE 50 MG PO (21:13)
[2025-05-31] VITALS (10 sets, daily range): BP systolic 96–152; BP diastolic 50–66; PULSE 59–68; RESP 16–18; TEMP 36.1–36.8; O2SAT 94–97
[2025-05-31 06:14] LABS: Basophils # (Auto) 0.0 Thou/mm3 (0.0-0.2); Basophils % (Auto) 1 % (0-2.5); Eosinophils # (Auto) 0.1 Thou/mm3 (0.0-0.5); Eosinophils % (Auto) 2 % (0-10); Hematocrit 32.8 % (36.0-46.0); Hemoglobin 10.7 g/dL (12.0-16.0); Immature Granulocytes Auto 0.02 Thou/mm3 (0.00-0.00); Lymphocytes # (Auto) 1.4 Thou/mm3 (1.0-4.8); Lymphocytes % (Auto) 32 % (10-50); Mean Corpuscular HGB Conc 32.6 g/dl (31.0-37.0); Mean Corpuscular Hemoglobin 29.6 pg (25.0-35.0); Mean Corpuscular Volume 91 fL (80-100); Monocytes # (Auto) 0.5 Thou/mm3 (0.0-0.8); Monocytes % (Auto) 11 % (0-12); Neutrophils # (Auto) 2.3 Thou/mm3 (1.8-7.7); Neutrophils % (Auto) 53 % (37-80); Nucleated Red Blood Cell # 0.00 Thou/mm3 (0.00-0.00); Nucleated Red Blood Cell % 0 /100 WBC (0); Platelet Count 197 Thou/mm3 (140-440); RDW Standard Deviation 45.8 fL (36.4-46.3); Red Blood Count 3.62 Miln/mm3 (4.00-5.20); White Blood Count 4.3 Thou/mm3 (3.6-11.0)
[2025-05-31] MEDS: GABAPENTIN 300 MG CAPSULE PO ×3 (06:18→21:15)
[2025-05-31] MEDS: LEVOTHYROXINE SODIUM 125 MCG, LEVOTHYROXINE SODIUM 25 MCG 150 MCG PO (06:18)
[2025-05-31 06:32] LABS: Alanine Aminotransferase 15 U/L (10-49); Albumin, Serum 4.0 gm/dL (3.4-4.8); Albumin/Globulin Ratio 1.9 (1.2-2.2); Alkaline Phosphatase 27 U/L (46-116); Anion Gap 11 (7-16); Aspartate Amino Transferase 20 U/L (0-34); BUN/Creatinine Ratio 15 Ratio (12-20); Bilirubin,Total 0.2 mg/dL (0.3-1.2); Blood Urea Nitrogen 20 mg/dL (9-23); Calcium 8.9 mg/dL (8.3-10.6); Calcium (Corrected) 8.9 mg/dL (8.5-10.1); Carbon Dioxide 26.6 mMol/L (20.0-31.0); Chloride 107 mMol/L (98-107); Creatinine (Component) 1.3 mg/dL (0.6-1.3); Estimated Creatinine Clearance 38.3 mL/min (>60); Globulin 2.1 gm/dL (2.3-3.5); Glucose 113 mg/dL (74-106); Magnesium 1.6 mg/dL (1.6-2.6); Osmolality,Calculated 292 (275-295); Phosphorous 3.9 mg/dL (2.4-5.1); Potassium 3.9 mMol/L (3.4-5.1); Sodium 145 mMol/L (136-145); Total Protein 6.1 gm/dL (5.7-8.2); eGFR 43 See Note
[2025-05-31] MEDS: MEROPENEM INJ 1,000 MG in SODIUM CHLORIDE 0.9% (Popper) 50 ML 100 MG IV ×2 (08:35→21:16)
[2025-05-31] MEDS: NIFEdipine XL 30 MG TABCR PO ×2 (08:36→21:15)
[2025-05-31] MEDS: LABETALOL 100 MG TABLET 200 MG PO ×2 (08:36→21:15)
--- NOTE | 2025-05-31 15:09 | ESPR_ITS ---
<Statement entered by Jason Farfan MD - 06/03/25 18:39> I personally examined evaluated the patient and on MedSurg floor patient continues to do fairly well except has still has frequency dysuria does not complain of any chest pain shortness of blood pressure controlled well exam the patient evaluated the resident physician PGY 2 Dr. Nava agree with the treatment plan recommendation as documented patient has had urology consultation recommended to go to same specialist that did the procedure but she would like to go to a different center [facility]. I recommend to consider again going back to Dr. Coombs at [facility] who did most of her procedures Documentation for date of: 05/31/25 Subjective Subjective Interval history: Patient is 74 yr female with PMH of resistant hypertension, hyperlipidemia, mitral stenosis, hypothyroidism, CKD stage IIIb, recurrent UTIs, multiple bladder surgeries for urinary incontinence (but still persistent), anxiety depression presenting to ED due to dysuria. Patient has extensive history of recurrent UTIs since the past 30 years. She has been referred to specialist in [place]. Currently awaiting to see urologist for further workup and recommendations. Patient is experiencing dysuria and throbbing sensation in pelvic region. Was recently discharged after treated with IV antibiotics. Urine culture from 1 week ago grew Klebsiella pneumonia and sensitive to only IV antibiotic. She has severe incontinence and needs to wear pads all times. Has tried multiple medical therapies including prophylactic antibiotics that she is to take daily. This treatment also did not help in symptoms. Patient denies any headache, chest pain, shortness of breath or palpitations. No recent illness. Patient will be admitted for complicated UTI requiring IV meropenem. Vitals in the ED are stable., UA consistent with UTI positive leukocyte esterase, WBC 2009. WBC 8.0, creatinine 1.7. 05/30: Patient examined at bedside. Has no major complaints states that she is feeling better in terms of her dysuria since starting the IV antibiotics. Her incontinence has slightly improved with less pressure in pelvic area and bladder. No hesitancy when starting urination. Meropenem renally dosed for LILA. Creatinine is 1.6. Magnesium 1.6, replete with 4 g. Urine cultures are still pending. Vitals were reviewed and stable. Primary care team has consulted urology for patient case. Blood pressure well-controlled, continue meds as prescribed outpatient. 05/31: Patient seen at bedside. She continues to experience dysuria with frequency throughout the night. Stream is constant during urination. Creatinine has downtrended to 1.3. Vitals are stable. Magnesium 1.6, replete with 4 g. Urine cultures were negative. In house urology recommends that patient see specialist that had previously done bladder surgeries due to complicated history. Continue IV meropenam for complicated UTI. Blood pressure well- controlled, continue meds as prescribed outpatient. Exam Vital Signs Temp Pulse Resp BP Pulse Ox O2 Del Method 97.1 F 63 17 133/60 H 97 Room Air 05/31/25 12:00 05/31/25 12:00 05/31/25 12:00 05/31/25 12:00 05/31/25 12:05/31/25 12:00 Narrative Exam General: Alert and oriented x3. No acute distress, cooperative HEENT: NCAT, No JVD noted. Mucosa moist. Pupils are equal and reactive to light bilaterally Cardiovascular: Normal S1 and S2. Regular rate and rhythm. Respiratory: Lungs are clear to auscultation bilaterally. No wheezing or crackles heard. Abdomen: Soft, nontender, not distended, normal bowel sounds. Skin: Warm to touch, dry, no rashes noted Musculoskeletal: No gross injuries. Able to move all 4 extremities. No pitting edema Neuro: Alert and oriented x3. No focal neuro deficits. Psych: Normal affect and mood Objective Labs 05/31/25 05:47 05/31/25 05:47 Labs: Laboratory Results - last 24 hr 05/31/25 05:47 WBC 4.3 RBC 3.62 L Hgb 10.7 L Hct 32.8 L MCV 91 MCH 29.6 MCHC 32.6 RDW Std Deviation 45.8 Plt Count 197 Neut % (Auto) 53 Lymph % (Auto) 32 [place] % (Auto) 11 Eos % (Auto) 2 Baso % (Auto) 1 Neut # (Auto) 2.3 Lymph # (Auto) 1.4 [place] # (Auto) 0.5 Eos # (Auto) 0.1 Baso # (Auto) 0.0 Immature Gran # (Auto) 0.02 H Absolute Nucleated RBC 0.00 Immature Gran % 1 H Nucleated RBC % 0 Sodium 145 Potassium 3.9 Chloride 107 Carbon Dioxide 26.6 Anion Gap 11 BUN 20 Creatinine 1.3 Estim Creat Clear Calc 38.3 L eGFR 43 L BUN/Creatinine Ratio 15 Glucose 113 H Calculated Osmolality 292 Calcium 8.9 Corrected Calcium 8.9 Phosphorus 3.9 Magnesium 1.6 Total Bilirubin 0.2 L AST 20 ALT 15 Alkaline Phosphatase 27 L Total Protein 6.1 Albumin 4.0 D Globulin 2.1 L Albumin/Globulin Ratio 1.9 Quality Measures Quality Measures VTE prophylaxis Advance care planning discussed with:: patient Assessment & Plan Assessment Current Active Medications: Generic Name Dose Route Start Last Admin Trade Name Freq PRN Reason Stop Dose Admin Acetaminophen 650 mg 05/29/25 17:06 Acetaminophen 325 Mg Tablet PO 06/28/25 17:05 Q6H PRN Fever >100.5 or pain 1-3 Hydrocodone Bitart/Acetaminophen 1 tab 05/29/25 17:43 05/31/25 13:36 Hydrocodone/Apap 10/325 Tab PO 06/03/25 17:42 1 tab Q6H PRN Administration PAIN SCALE 4-10(Mod-Sev Fenofibrate 160 Mg 0 ea 05/30/25 19:15 05/31/25 08:37 Tablet PO 06/29/25 19:14 1 tablet QDAY ROBERT Administration Doxepin HCl 50 mg 05/29/25 21:00 05/30/25 21:13 Doxepin Hcl 25 Mg Capsule PO 06/28/25 20:59 50 mg HS ROBERT Administration Gabapentin 300 mg 05/29/25 18:00 05/31/25 14:59 Gabapentin 300 Mg Capsule PO 06/28/25 17:59 300 mg TID ROBERT Administration Guanfacine HCl 2 mg 05/29/25 21:00 05/30/25 21:30 Guanfacine Hcl 1 Mg Tablet (Non-Formulary) PO 06/28/25 20:59 Not Given HS ROBERT Heparin Sodium (Porcine) 5,000 unit 05/29/25 22:00 05/31/25 06:18 Heparin Sod Inj 5000 Unit/Ml Vial SC 06/12/25 21:59 Not Given Q8HR ROBERT Hydralazine HCl 100 mg 05/29/25 18:00 05/31/25 08:35 Hydralazine Hcl 25 Mg Tablet PO 06/28/25 17:59 100 mg BID ROBERT Administration Hydrochlorothiazide 25 mg 05/29/25 18:00 05/31/25 08:35 Hydrochlorothiazide 12.5 Mg Capsule PO 06/28/25 17:59 25 mg BID ROBERT Administration Meropenem 1,000 mg/ Sodium 50 mls @ 100 mls/hr 05/30/25 21:00 05/31/25 08:35 Chloride IV 06/06/25 20:59 100 mls/hr BID ROBERT Administration Labetalol HCl 200 mg 05/29/25 18:00 05/31/25 08:36 Labetalol 100 Mg Tablet PO 06/28/25 17:59 200 mg BID ROBERT Administration Levothyroxine Sodium 125 mcg/ 150 mcg 05/30/25 06:00 05/31/25 06:18 Levothyroxine Sodium 25 mcg PO 06/29/25 05:59 150 mcg ACBR ROBERT Administration Nifedipine 30 mg 05/29/25 18:00 05/31/25 08:36 Nifedipine Xl 30 Mg Tabcr PO 06/28/25 17:59 30 mg BID ROBERT Administration Oxycodone/Acetaminophen 1 tab 05/29/25 17:06 Oxycodone/Apap 5/325 Tablet PO 06/03/25 17:05 On Hold: 05/29/25 19:38 Q6H PRN Comment: DUPLICATE PAIN SCALE PAIN SCALE 4-6 (Moderate Protocol Pravastatin Sodium 80 mg 05/29/25 18:00 05/30/25 21:12 Pravastatin Sodium 10 Mg Tablet PO 06/28/25 17:59 80 mg HS ROBERT Administration Tizanidine HCl 4 mg 05/29/25 17:43 05/30/25 21:11 Tizanidine Hcl 2 Mg Tablet PO 06/28/25 17:42 4 mg HS PRN Administration Muscle Spasticity Plan Patient is 74 yr female with PMH of resistant hypertension, hyperlipidemia, mitral stenosis, hypothyroidism, CKD stage IIIb, recurrent UTIs, multiple bladder surgeries for urinary incontinence (but still persistent), anxiety depression presenting to ED due to dysuria. Patient will be admitted for complicated UTI requiring IV meropenem. #Resistant hypertension #Hyperlipidemia History of resistant hypertension and angina pectoralis with complete negative workup. Takes multiple home anti-hypertensives, managed by cardiology, Dr. Farfan. Blood pressure well-controlled in the ED, 123/74. She takes fenofibrate 160 mg daily, hydralazine 100 twice daily, hydrochlorothiazide 25 mg daily, labetalol 200 twice daily, nifedipine 30 twice daily, pravastatin 80 mg daily. -resume all home medications -monitor vitals # Complicated UTI, ESBL Klebsiella #Recurrent UTI #Incontinence Patient has extensive history of recurrent UTIs since the past 30 years. She has been referred to specialist in [place]. Currently awaiting to see urologist for further workup and recommendations. Patient is experiencing dysuria and throbbing sensation in pelvic region. Was recently discharged after treated with IV antibiotics. Urine culture from 1 week ago grew Klebsiella pneumonia and sensitive to only IV antibiotic. UA consistent with UTI positive leukocyte esterase, WBC 2009. WBC 8.0, creatinine 1.7. - IV meropenem -Ucx were negative #CKD stage IIIb #Hypothyroidism #Anxiety/depression #Chronic back pain Primary care team to manage above conditions and ongoing care needs. The patient's management plan was discussed with my attending physician Dr. Farfan. Leanna Reyna, PGY-2
--- NOTE | 2025-05-31 16:25 | ESPR_ITS ---
<Statement entered by Gerardo Gomes MD - 05/31/25 16:35> No acute overnight events. Seen and examined at bedside and patient resting comfortably in bed. States that she has some dysuria and cannot tell if her urine is either foul-smelling or cloudy. Denies any fevers or chills. Vital signs stable, including her blood pressure which is noted to be difficult to control and at times can be in 200s/100s. CBC unremarkable, CHEM panel showing improving renal function. Urine culture came back negative. However, patient will require a total of 7 days of IV antibiotics and thus PICC line placement was ordered. Once placed, anticipate discharge in this 24 to 48 hours. ----- Note reviewed and agree with care plan as documented. Please refer to the note below for further details. Plan discussed with attending physician Dr. Mary Gomes MD PGY-2 Internal Medicine Documentation for date of: 05/31/25 Subjective Subjective Interval history: NAEO. States of dizziness this morning BP soft in mornings, watching patient closely Ordered picc line for outpatient ertapenem with home health referral Exam Vital Signs Temp Pulse Resp BP Pulse Ox O2 Del Method 97.0 F 59 L 16 143/59 H 96 Room Air 05/31/25 16:00 05/31/25 16:00 05/31/25 16:00 05/31/25 16:00 05/31/25 16:00 05/31/25 16:00 Narrative Exam General: No acute distress; A&Ox3 Skin: Warm, dry, intact, no obvious rash. HENT: NCAT, EOMI/PERRL, not icteric. External ears normal. No rhinorrhea. Moist mucous membranes Cardiovascular: Regular rate and rhythm, no murmur, +S1/S2. Respiratory: Lungs CTAB GI: Soft, nontender, non-distended. No guarding or rebound tenderness. : No flank tenderness bilaterally. Extremities: no edema, no cyanosis, no clubbing. Extremity pulses present Neuro: Grossly nonfocal. Moving all 4 extremities. CN not formally tested but appear grossly intact. Psychiatric: Cooperative, appropriate affect. Objective Labs 05/31/25 05:47 05/31/25 05:47 Labs: Laboratory Results - last 24 hr 05/31/25 05:47 WBC 4.3 RBC 3.62 L Hgb 10.7 L Hct 32.8 L MCV 91 MCH 29.6 MCHC 32.6 RDW Std Deviation 45.8 Plt Count 197 Neut % (Auto) 53 Lymph % (Auto) 32 [place] % (Auto) 11 Eos % (Auto) 2 Baso % (Auto) 1 Neut # (Auto) 2.3 Lymph # (Auto) 1.4 [place] # (Auto) 0.5 Eos # (Auto) 0.1 Baso # (Auto) 0.0 Immature Gran # (Auto) 0.02 H Absolute Nucleated RBC 0.00 Immature Gran % 1 H Nucleated RBC % 0 Sodium 145 Potassium 3.9 Chloride 107 Carbon Dioxide 26.6 Anion Gap 11 BUN 20 Creatinine 1.3 Estim Creat Clear Calc 38.3 L eGFR 43 L BUN/Creatinine Ratio 15 Glucose 113 H Calculated Osmolality 292 Calcium 8.9 Corrected Calcium 8.9 Phosphorus 3.9 Magnesium 1.6 Total Bilirubin 0.2 L AST 20 ALT 15 Alkaline Phosphatase 27 L Total Protein 6.1 Albumin 4.0 D Globulin 2.1 L Albumin/Globulin Ratio 1.9 Quality Measures Quality Measures VTE prophylaxis Advance care planning discussed with:: patient Assessment & Plan Assessment Current Active Medications: Generic Name Dose Route Start Last Admin Trade Name Freq PRN Reason Stop Dose Admin Acetaminophen 650 mg 05/29/25 17:06 Acetaminophen 325 Mg Tablet PO 06/28/25 17:05 Q6H PRN Fever >100.5 or pain 1-3 Hydrocodone Bitart/Acetaminophen 1 tab 05/29/25 17:43 05/31/25 13:36 Hydrocodone/Apap 10/325 Tab PO 06/03/25 17:42 1 tab Q6H PRN Administration PAIN SCALE 4-10(Mod-Sev Fenofibrate 160 Mg 0 ea 05/30/25 19:15 05/31/25 08:37 Tablet PO 06/29/25 19:14 1 tablet QDAY ROBERT Administration Doxepin HCl 50 mg 05/29/25 21:00 05/30/25 21:13 Doxepin Hcl 25 Mg Capsule PO 06/28/25 20:59 50 mg HS ROBERT Administration Gabapentin 300 mg 05/29/25 18:00 05/31/25 14:59 Gabapentin 300 Mg Capsule PO 06/28/25 17:59 300 mg TID ROBERT Administration Guanfacine HCl 2 mg 05/29/25 21:00 05/30/25 21:30 Guanfacine Hcl 1 Mg Tablet (Non-Formulary) PO 06/28/25 20:59 Not Given HS ROBERT Heparin Sodium (Porcine) 5,000 unit 05/29/25 22:00 05/31/25 06:18 Heparin Sod Inj 5000 Unit/Ml Vial SC 06/12/25 21:59 Not Given Q8HR ROBERT Hydralazine HCl 100 mg 05/29/25 18:00 05/31/25 08:35 Hydralazine Hcl 25 Mg Tablet PO 06/28/25 17:59 100 mg BID ROBERT Administration Hydrochlorothiazide 25 mg 05/29/25 18:00 05/31/25 08:35 Hydrochlorothiazide 12.5 Mg Capsule PO 06/28/25 17:59 25 mg BID ROBERT Administration Meropenem 1,000 mg/ Sodium 50 mls @ 100 mls/hr 05/30/25 21:00 05/31/25 08:35 Chloride IV 06/06/25 20:59 100 mls/hr BID ROBERT Administration Labetalol HCl 200 mg 05/29/25 18:00 05/31/25 08:36 Labetalol 100 Mg Tablet PO 06/28/25 17:59 200 mg BID ROBERT Administration Levothyroxine Sodium 125 mcg/ 150 mcg 05/30/25 06:00 05/31/25 06:18 Levothyroxine Sodium 25 mcg PO 06/29/25 05:59 150 mcg ACBR ROBERT Administration Nifedipine 30 mg 05/29/25 18:00 05/31/25 08:36 Nifedipine Xl 30 Mg Tabcr PO 06/28/25 17:59 30 mg BID ROBERT Administration Oxycodone/Acetaminophen 1 tab 05/29/25 17:06 Oxycodone/Apap 5/325 Tablet PO 06/03/25 17:05 On Hold: 05/29/25 19:38 Q6H PRN Comment: DUPLICATE PAIN SCALE PAIN SCALE 4-6 (Moderate Protocol Pravastatin Sodium 80 mg 05/29/25 18:00 05/30/25 21:12 Pravastatin Sodium 10 Mg Tablet PO 06/28/25 17:59 80 mg HS ROBERT Administration Tizanidine HCl 4 mg 05/29/25 17:43 05/30/25 21:11 Tizanidine Hcl 2 Mg Tablet PO 06/28/25 17:42 4 mg HS PRN Administration Muscle Spasticity Plan Patient is a 74-year-old female with past medical history of recurrent/resistant UTIs, hypothyroidism, hyperlipidemia, resistant hypertension, mitral stenosis, chronic pain, CKD, anxiety, depression urinary incontinence who presents to the ED at [facility] with a chief complaint of UTI due to resistant Klebsiella. Patient was admitted for evaluation and management of UTI resistant to oral antibiotics; on meropenem 1000 mg BID. #UTI #ESBL Klebsiella pneumoniae #History of recurrent UTI in setting of recurrent urological procedures Patient has long history of urinary and bladder problems since ; endorses dysuria, frequency Endorsed throbbing pelvic pain; history of 9 bladder surgeries; noted to have had poor perineal hygiene on chart review. Patient most recent Urine culture from [facility] [place] showed Klebsiella pneumoniae esbl sensitive only to meropepnem and amikacin UA at [facility] showed dark yellow turbid, 1+ protein, 16 RBCs, 2009 WBCs, 32 squamous epithelium, 10 transition epithelium, 1+ bacteria, leukocyte esterase positive No elevation in wbc; afebrile CT AP showed pelvic floor laxity urine culture showed no growth -meropenem 1000 mg IV q8hr -> q12hr -ordered picc line for outpatient ertapenem with home health referral -urology Dr. Moreno consulted, appreciate recs -Bladder scan as needed #HTN, resistant home meds of hydralazine 100 mg po bid, hctz 25 mg po bid, labetalol 200 mg po bid, nifedipine 30 mg po bid BP in good range on admission -restarted said home meds -will continue to monitor -cardiology Dr. Farfan consulted, appreciate recs #hypothyroidism home med of levothyroxine sodium 150 mcg po acbr -resumed said home med -tsh ordered am #LILA? on CKD, resolved Patient has history of ckd stage 3b egfr 31 on admission Cr of 1.7 on admission, baseline 1.3-1.6? 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 Hernandez & senior resident Dr. Eliseo Muniz MD PGY-1 Attending Provider Attestation/Addendum I, Devora Hernandez DO, attest that I was physically present for the paulson portions of the service and evaluated the patient with the resident and I reviewed and discussed the case with the resident and agree with the resident's findings and plans of care as documented above Patient seen and eval this a.m. She states that she is doing well. No acute events overnight. Urine culture here in the hospital was negative. However due to outpatient urine culture that was positive for ESBL Klebsiella, sensitive to carbapenem, we will place PICC line for outpatient IV antibiotics. Will place patient on ertapenem 1 g daily x 7 days. Patient and are agreeable to plan. Will order home health to provide IV antibiotics.
--- NOTE | 2025-05-31 18:24 | PC.CC ---
Booked with [facility]. [facility] and [facility] both accepted the patient, both insfusion companies have copays. Could SS discuss these options with the patient before we book? [facility]:Amount for this week comes out to $150 subject to change by a few dollars when meds are finalized, we charge on a weekly basis PLEASE ADVISE:---FINANCIAL SYSTEMS DIRECTOR,SOC and d/c. [facility]:We could provide IV antibiotic for patient. They will have an out of pocket cost of $25/day of infusion plus copay of medication from the part d Plan.
[2025-05-31] MEDS: DOXEPIN HCL 25 MG CAPSULE 50 MG PO (21:14)
[2025-05-31] MEDS: PRAVASTATIN SODIUM 10 MG TABLET 80 MG PO (21:14)
[2025-05-31] MEDS: GUANFACINE HCL 1 MG 2 MG PO (21:16)
[2025-06-01] VITALS (24 sets, daily range): BP systolic 102–140; BP diastolic 39–88; PULSE 50–90; RESP 16–23; TEMP 36.1–36.8; O2SAT 93–99
[2025-06-01] MEDS: ACETAMINOPHEN 325 MG TABLET 650 MG PO (00:22)
[2025-06-01] MEDS: GABAPENTIN 300 MG CAPSULE PO ×2 (05:36→14:14)
[2025-06-01] MEDS: LEVOTHYROXINE SODIUM 125 MCG, LEVOTHYROXINE SODIUM 25 MCG 150 MCG PO (05:36)
[2025-06-01 06:13] LABS: Alanine Aminotransferase 15 U/L (10-49); Albumin, Serum 4.0 gm/dL (3.4-4.8); Albumin/Globulin Ratio 2.1 (1.2-2.2); Alkaline Phosphatase 26 U/L (46-116); Anion Gap 12 (7-16); Aspartate Amino Transferase 21 U/L (0-34); BUN/Creatinine Ratio 20 Ratio (12-20); Bilirubin,Total < 0.2 mg/dL (0.3-1.2); Blood Urea Nitrogen 26 mg/dL (9-23); Calcium 9.0 mg/dL (8.3-10.6); Calcium (Corrected) 9.0 mg/dL (8.5-10.1); Carbon Dioxide 28.8 mMol/L (20.0-31.0); Chloride 105 mMol/L (98-107); Creatinine (Component) 1.3 mg/dL (0.6-1.3); Estimated Creatinine Clearance 38.3 mL/min (>60); Globulin 1.9 gm/dL (2.3-3.5); Glucose 142 mg/dL (74-106); Magnesium 1.7 mg/dL (1.6-2.6); Osmolality,Calculated 297 (275-295); Phosphorous 3.6 mg/dL (2.4-5.1); Potassium 4.1 mMol/L (3.4-5.1); Sodium 146 mMol/L (136-145); Total Protein 5.9 gm/dL (5.7-8.2); eGFR 43 See Note
[2025-06-01 06:21] LABS: Basophils # (Auto) 0.0 Thou/mm3 (0.0-0.2); Basophils % (Auto) 1 % (0-2.5); Eosinophils # (Auto) 0.1 Thou/mm3 (0.0-0.5); Eosinophils % (Auto) 3 % (0-10); Hematocrit 32.4 % (36.0-46.0); Hemoglobin 10.5 g/dL (12.0-16.0); Immature Granulocytes Auto 0.01 Thou/mm3 (0.00-0.00); Lymphocytes # (Auto) 1.7 Thou/mm3 (1.0-4.8); Lymphocytes % (Auto) 36 % (10-50); Mean Corpuscular HGB Conc 32.4 g/dl (31.0-37.0); Mean Corpuscular Hemoglobin 29.8 pg (25.0-35.0); Mean Corpuscular Volume 92 fL (80-100); Monocytes # (Auto) 0.5 Thou/mm3 (0.0-0.8); Monocytes % (Auto) 11 % (0-12); Neutrophils # (Auto) 2.2 Thou/mm3 (1.8-7.7); Neutrophils % (Auto) 49 % (37-80); Nucleated Red Blood Cell # 0.00 Thou/mm3 (0.00-0.00); Nucleated Red Blood Cell % 0 /100 WBC (0); Platelet Count 195 Thou/mm3 (140-440); RDW Standard Deviation 46.5 fL (36.4-46.3); Red Blood Count 3.52 Miln/mm3 (4.00-5.20); White Blood Count 4.6 Thou/mm3 (3.6-11.0)
--- NOTE | 2025-06-01 07:24 | ESCONSULT_ITS ---
RE: DEVYN OLIVIER : 1950 DATE OF CONSULTATION: 05/31/2025 CHIEF COMPLAINT: Recurrent urinary tract infection, ESBL, status post multiple surgeries for the bladder done in [place] and [facility]. There are multiple visits to [facility] emergency room. COMORBID CONDITIONS: 1. Hypothyroidism. 2. Hyperlipidemia. 3. Resistant hypertension. 4. Mitral stenosis. 5. Chronic pain. 6. Chronic kidney disease stage IIIB. 7. Anxiety. 8. Depression. 9. Urinary incontinence. 10. Cancer of the breast, status post surgery and radiation treatment done in [place]. HISTORY OF PRESENT ILLNESS: This is a 74-year-old female. She has multiple visits to the emergency room in [facility] as well as [facility]. According to the patient, she has surgical procedure on her bladder for urinary incontinence done close to 20 years ago. This was done in [place]. Subsequently, she was incontinent of urine and she was sent to Dr. Coombs in [place], who did multiple surgeries on her. Patient has not been happy and satisfied with all the care she was given in [place] or [place] or [facility] emergency room and [facility]. She presents to the emergency room with difficulty in urinating and burning of urination and pelvic pain. She had a suprapubic pain, dysuria, and urinary incontinence. Denies any fever. PAST MEDICAL HISTORY: As above. FAMILY HISTORY: Not applicable. SURGERIES: Nine bladder surgeries. I do not have any operating note on any one of the surgeries done either in [facility] or [place]. She has multiple hip replacement. She has neck surgery, she had knee replacement, and she also has a hysterectomy. SOCIAL HISTORY: Occasional alcohol use. Never used tobacco or any illicit drugs. ALLERGIES: PATIENT IS ALLERGIC TO ADHESIVE TAPE. MEDICATIONS: 1. Nexium 24. 2. Doxepin 50 mg one per night. 3. Tizanidine 4 mg once night. 4. Betina-Theo once a day. 5. Levothyroxine 150 mcg once a day. 6. Fenofibrate 160 mg once a day. 7. Pravastatin 80 mg once a day. 8. [place] 10/325 mg every 4-6 hour as needed. 9. Gabapentin 300 mg three times per day. 10. HCTZ 25 mg daily. 11. Nifedipine 30 mg once a day. 12. Hydralazine 100 mg once every day. She was admitted in the hospital on 05/29/2025. I have reviewed the records of the patient except the operative note either from [place] or from Dr. Coombs from [place]. On admission, her blood pressure is 123/74, pulse 60 per minute, respirations 20, temperature 98.1 Fahrenheit, oxygen saturation 95% on room air. VARIOUS LABS: At the time of admission, hemoglobin 11.2, RDW 70.6, creatinine is 1.7, GFR is 31. She has a water pollution specialist in [place]. She told me she has not seen the water pollution specialist for 5 years. Patient is admitted in the hospital for evaluation and treatment for multi-drug resistant urinary tract infection. REVIEW OF SYSTEMS: Otherwise negative except what is mentioned above. PHYSICAL EXAMINATION: On narrative exam: General condition: Not in acute distress. HEENT: Normocephalic, atraumatic, oriented x3. VARIOUS OTHER LABS: WBC is 8.0, hemoglobin is 11.2, HCT 36. Urine revealed 1+ protein and microscopic hematuria and bacteriuria. CAT scan was done. It is reviewed by me and this revealed no hydronephrosis, no ureteral or kidney stone. She has mild parenchymal scar formation. IMPRESSION: 1. Multi-drug resistant urinary tract infection. 2. Urinary incontinence. 3. Multiple surgeries done on her bladder, nature of which I do not know. I do not have any operative notes. RECOMMENDATIONS: I had a discussion with the patient. I explained to her it is a very complex case. I know Dr. Coombs, he is one of the reputed urologist in [place]. Considering her all medical conditions and multi-resistant bacterial infection, she should follow up with Dr. Coombs and I have called Dr. Farfan, who has recommended her to me for consultation. I will see her on p.r.n. basis and she needs to see infectious disease physician and water pollution specialist. Refer back to Dr. Coombs. DT: 13:40:42 TT: 19:36:00 Ref: [id number] - TID: [id number]
[2025-06-01] MEDS: NIFEdipine XL 30 MG TABCR PO (08:50)
[2025-06-01] MEDS: MEROPENEM INJ 1,000 MG in SODIUM CHLORIDE 0.9% (Popper) 50 ML 100 MG IV ×2 (08:52→20:33)
[2025-06-01] MEDS: LABETALOL 100 MG TABLET 200 MG PO (08:52)
--- NOTE | 2025-06-01 09:18 | XR_ITS ---
Examination: Ultrasound-guided needle placement left brachial vein. Dual-lumen central line placement (PICC line). Fluoroscopy AP chest, portable, 2 views Exam date and time: June 01, 2025, 0920 hours INDICATIONS: Need for long-term intravenous antibiotic therapy A timeout was completed verifying correct patient, procedure, site, positioning Informed consent provided Technique: The patient's site was prepped and draped in sterile fashion. Maximum Sterile Barrier Technique used including cap, mask, sterile gown, sterile gloves, and sterile full body drape. If ultrasound technique used: sterile gel and sterile probe covers. Hand Hygiene performed using proper scrub, soap and water, or alcohol-based hand rub. Ultrasound utilized to confirm patency of the left brachial vein Utilizing ultrasonographic guidance successful 21-gauge needle puncture into the left brachial vein Ultrasound images recorded and stored. 5 cc 1% lidocaine administered for local anesthetic. Successful micropuncture with a 21-gauge needle is performed. 0.18 wire guide is then introduced into the SVC under fluoroscopic guidance. Dual-lumen catheter dilator is then introduced, followed by the catheter in the SVC and proper position under fluoroscopic guidance. Successful aspiration of blood and flushing with heparinized saline is then performed in the 2 venous limbs. The catheter sutured in place. Findings: Under fluoroscopy, the tip of the catheter is in good position in the vena cava. Portable chest x-ray, post line placement is ordered. Estimated blood loss 3 cc The patient tolerated the procedure well and was in stable and satisfactory condition at completion of the procedure Impression: Successful ultrasound-guided needle placement left brachial vein Successful placement of dual lumen central line, percutaneous Fluoroscopy 0.9-minute radiation dose 2.71 mGy 2 spot fluoroscopic chest films. AP chest completion procedure demonstrates satisfactory position central line. May use central line.
[2025-06-01] MEDS: HEPARIN SOD LOCK SYR 100 UNIT/ML 500 UNIT STFIELD (10:17)
[2025-06-01] MEDS: LIDOCAINE INJ PF 1% 30 ML VIAL 8 ML INFL (10:17)
--- NOTE | 2025-06-01 10:26 | PC.CC ---
Addendum entered by Lani Owen RN 06/01/25 12:02: 1120 spoke to patient at bedside, she informed me that her does not want to administer the iv abx since he had difficulties with her last infusion. Informed Dr. Gomes. Spoke to FER Ken informed her of patient's concerns about her . Suellen will f/u patient again. Hoda Leggett with [facility] called me, she provided information about the outpatient infusion center. Suellen came back from speaking to the patient and was informed pt;s is now agreeable to administer IV abx. [facility] informed me that they spoke to the patient's and he is agreeable to pay the copay. I spoke to Dr. Gomes again to confirm dc date of today, he stated pt had an allergic reaction to the contrast when PICC line was placed and will DC tomorrow instead. Informed DIANE and BRADY of dc date for tomorrow via [facility]. Original Note: received call from [facility], they are unable to reach patient to discuss her total cost. I spoke to Ashanti bedside nurse, she stated pt is away getting her PICC line placed. I asked her to inform the patient to call [facility] back when she returns.
[2025-06-01] MEDS: HYDROCORTISONE SOD SUCC INJ 100 MG 2 ML VIAL IV (10:51)
--- NOTE | 2025-06-01 11:04 | PC.NURSE ---
1104 patient is awake, alert, breathing unlabored, s/p picc line insertion to left arm, dressing dry with no bleeding , report given to Ashanti ALCOCER, patient transferrred back to room 267 via gurney. Patient will be upgraded to tele due to allergic reaction to contrast.
[2025-06-01] MEDS: ONDANSETRON INJ 2 MG/ML INJ 2 ML 4 MG IVP (11:44)
--- NOTE | 2025-06-01 11:53 | PC.SS ---
Follow up note: SS was informed that patient received her picc line and is ready for d/c. SS spoke to transfer nurse who states she was told patient's is not comfortable with that and they have no one else. SS met with patient at bedside. Patient states she wasn't feeling well and had an allergic reaction to something while she was receiving her picc line. Patient states she just spoke to her and he is now comfortable with doing this. Both patient and are agreeable to discharging home with home health for the i.v. antibiotic until the . Patient is agreeable to SOC. She is aware the amount. SS updated transfer nurse as well. Transfer nurse will start process.
--- NOTE | 2025-06-01 12:41 | ESPR_ITS ---
<Statement entered by Gerardo Gomes MD - 06/01/25 14:27> No acute overnight events. Seen and examined at bedside and resting comfortably in bed. Patient has no complaints at this time. Underwent placement of PICC line but noted to have a reaction after infusion of contrast for which she received Benadryl and hydrocortisone. At that time, vital signs are stable but she does endorse some difficulty breathing but has been improving since reaction started. Given that she is on room air and improving, we will continue to monitor for another day with plans for discharge with home health for IV antibiotics for her UTI. Other vital signs stable with some mild bradycardia. CBC panel unremarkable, CHEM panel also largely unremarkable. Anticipate discharge in the next 24 to 48 hours. ----- Note reviewed and agree with care plan as documented. Please refer to the note below for further details. Plan discussed with attending physician Dr. Margot Gomes MD PGY-2 Internal Medicine Documentation for date of: 06/01/25 Subjective Subjective Interval history: NAEO. Patient today was getting contrast due to PICC insertion and had a reaction involving throat swelling which improved after being given diphenhydramine and hydrocortisone. Patient will be kept for monitoring for signs of anaphylaxis given this new acute reaction. Plan tomorrow to discharge home with home health. Exam Vital Signs Temp Pulse Resp BP Pulse Ox O2 Del Method 97.7 F 53 L 20 113/53 L 97 Room Air 06/01/25 08:30 06/01/25 10:40 06/01/25 10:40 06/01/25 10:40 06/01/25 10:40 06/01/25 10:40 Narrative Exam General: No acute distress; A&Ox3 Skin: Warm, dry, intact, no obvious rash. HENT: NCAT, EOMI/PERRL, not icteric. External ears normal. No rhinorrhea. Moist mucous membranes Cardiovascular: Regular rate and rhythm, no murmur, +S1/S2. Respiratory: Lungs CTAB GI: Soft, nontender, non-distended. No guarding or rebound tenderness. : No flank tenderness bilaterally. Extremities: no edema, no cyanosis, no clubbing. Extremity pulses present Neuro: Grossly nonfocal. Moving all 4 extremities. CN not formally tested but appear grossly intact. Psychiatric: Cooperative, appropriate affect. Objective Labs 06/02/25 05:50 06/02/25 05:50 Labs: Laboratory Results - last 24 hr 06/01/25 04:20 WBC 4.6 RBC 3.52 L Hgb 10.5 L Hct 32.4 L MCV 92 MCH 29.8 MCHC 32.4 RDW Std Deviation 46.5 H Plt Count 195 Neut % (Auto) 49 Lymph % (Auto) 36 [place] % (Auto) 11 Eos % (Auto) 3 Baso % (Auto) 1 Neut # (Auto) 2.2 Lymph # (Auto) 1.7 [place] # (Auto) 0.5 Eos # (Auto) 0.1 Baso # (Auto) 0.0 Immature Gran # (Auto) 0.01 H Absolute Nucleated RBC 0.00 Immature Gran % 0 Nucleated RBC % 0 Sodium 146 H Potassium 4.1 Chloride 105 Carbon Dioxide 28.8 Anion Gap 12 BUN 26 H Creatinine 1.3 Estim Creat Clear Calc 38.3 L eGFR 43 L BUN/Creatinine Ratio 20 Glucose 142 H Calculated Osmolality 297 H Calcium 9.0 Corrected Calcium 9.0 Phosphorus 3.6 Magnesium 1.7 Total Bilirubin < 0.2 L AST 21 ALT 15 Alkaline Phosphatase 26 L Total Protein 5.9 Albumin 4.0 Globulin 1.9 L Albumin/Globulin Ratio 2.1 Quality Measures Quality Measures VTE prophylaxis Advance care planning discussed with:: patient Assessment & Plan Assessment Current Active Medications: Generic Name Dose Route Start Last Admin Trade Name Freq PRN Reason Stop Dose Admin Acetaminophen 650 mg 05/29/25 17:06 06/01/25 00:22 Acetaminophen 325 Mg Tablet PO 06/28/25 17:05 650 mg Q6H PRN Administration Fever >100.5 or pain 1-3 Hydrocodone Bitart/Acetaminophen 1 tab 05/29/25 17:43 06/01/25 11:21 Hydrocodone/Apap 10/325 Tab PO 06/03/25 17:42 1 tab Q6H PRN Administration PAIN SCALE 4-10(Mod-Sev Fenofibrate 160 Mg 0 ea 05/30/25 19:15 06/01/25 08:53 Tablet PO 06/29/25 19:14 1 tablet QDAY ROBERT Administration Doxepin HCl 50 mg 05/29/25 21:00 05/31/25 21:14 Doxepin Hcl 25 Mg Capsule PO 06/28/25 20:59 50 mg HS ROBERT Administration Gabapentin 300 mg 05/29/25 18:00 06/01/25 05:36 Gabapentin 300 Mg Capsule PO 06/28/25 17:59 300 mg TID ROBERT Administration Guanfacine HCl 2 mg 05/29/25 21:00 05/31/25 21:16 Guanfacine Hcl 1 Mg Tablet (Non-Formulary) PO 06/28/25 20:59 2 mg HS ROBERT Administration Heparin Sodium (Porcine) 5,000 unit 05/29/25 22:00 06/01/25 05:37 Heparin Sod Inj 5000 Unit/Ml Vial SC 06/12/25 21:59 Not Given Q8HR ROBERT Hydralazine HCl 100 mg 05/29/25 18:00 06/01/25 08:51 Hydralazine Hcl 25 Mg Tablet PO 06/28/25 17:59 100 mg BID ROBERT Administration Hydrochlorothiazide 25 mg 05/29/25 18:00 06/01/25 08:51 Hydrochlorothiazide 12.5 Mg Capsule PO 06/28/25 17:59 25 mg BID ROBERT Administration Meropenem 1,000 mg/ Sodium 50 mls @ 100 mls/hr 05/30/25 21:00 06/01/25 08:52 Chloride IV 06/06/25 20:59 100 mls/hr BID ROBERT Administration Labetalol HCl 200 mg 05/29/25 18:00 06/01/25 08:52 Labetalol 100 Mg Tablet PO 06/28/25 17:59 200 mg BID ROBERT Administration Levothyroxine Sodium 125 mcg/ 150 mcg 05/30/25 06:00 06/01/25 05:36 Levothyroxine Sodium 25 mcg PO 06/29/25 05:59 150 mcg ACBR ROBERT Administration Nifedipine 30 mg 05/29/25 18:00 06/01/25 08:50 Nifedipine Xl 30 Mg Tabcr PO 06/28/25 17:59 30 mg BID ROBERT Administration Ondansetron HCl 4 mg 06/01/25 11:25 06/01/25 11:44 Ondansetron Inj 2 Mg/Ml Inj 2 Ml IVP 07/01/25 11:24 4 mg Q6HR PRN Administration NAUSEA OR VOMITING Protocol Oxycodone/Acetaminophen 1 tab 05/29/25 17:06 Oxycodone/Apap 5/325 Tablet PO 06/03/25 17:05 On Hold: 05/29/25 19:38 Q6H PRN Comment: DUPLICATE PAIN SCALE PAIN SCALE 4-6 (Moderate Protocol Pravastatin Sodium 80 mg 05/29/25 18:00 05/31/25 21:14 Pravastatin Sodium 10 Mg Tablet PO 06/28/25 17:59 80 mg HS ROBERT Administration Tizanidine HCl 4 mg 05/29/25 17:43 06/01/25 00:22 Tizanidine Hcl 2 Mg Tablet PO 06/28/25 17:42 4 mg HS PRN Administration Muscle Spasticity Plan Patient is a 74-year-old female with past medical history of recurrent/resistant UTIs, hypothyroidism, hyperlipidemia, resistant hypertension, mitral stenosis, chronic pain, CKD, anxiety, depression urinary incontinence who presents to the ED at [facility] with a chief complaint of UTI due to resistant Klebsiella. Patient was admitted for evaluation and management of UTI resistant to oral antibiotics; on meropenem 1000 mg BID. #UTI #ESBL Klebsiella pneumoniae #History of recurrent UTI in setting of recurrent urological procedures Patient has long history of urinary and bladder problems since ; endorses dysuria, frequency Endorsed throbbing pelvic pain; history of 9 bladder surgeries; noted to have had poor perineal hygiene on chart review. Patient most recent Urine culture from [facility] [place] showed Klebsiella pneumoniae esbl sensitive only to meropepnem and amikacin UA at [facility] showed dark yellow turbid, 1+ protein, 16 RBCs, 2009 WBCs, 32 squamous epithelium, 10 transition epithelium, 1+ bacteria, leukocyte esterase positive No elevation in wbc; afebrile CT AP showed pelvic floor laxity urine culture showed no growth -meropenem 1000 mg IV q8hr -> q12hr -picc line placed for outpatient ertapenem with home health referral -urology Dr. Moreno consulted, appreciate recs -recommended to f/u with Dr. Coombs Urology from [place] -Bladder scan as needed #HTN, resistant home meds of hydralazine 100 mg po bid, hctz 25 mg po bid, labetalol 200 mg po bid, nifedipine 30 mg po bid BP in good range on admission -continuing said home meds -will continue to monitor -cardiology Dr. Farfan consulted, appreciate recs #hypothyroidism home med of levothyroxine sodium 150 mcg po acbr TSH 0.92 -resumed said home med #LILA? on CKD, resolved Patient has history of ckd stage 3b egfr 31 on admission Cr of 1.7 on admission, baseline 1.3-1.6? 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 Farfan, cycle director Hospital Management: Disposition: med surg, ESBL Klebsiella UTI Diet: cardiac GI Prophylaxis: none Bowel Prophylaxis: none DVT Prophylaxis: heparin CODE STATUS: full code Patient plan of care was discussed with the attending physician, Dr. Frost & senior resident Dr. Eliseo Muniz MD PGY-1 Attending Provider Attestation/Addendum I have examined the patient, reviewed labs and imaging findings, discussed the case with the resident(s), and reviewed entered orders. I agree with the plan of care as outlined in this note. Dr. Margot MD
--- NOTE | 2025-06-01 16:59 | ESPR_ITS ---
Documentation for date of: 06/01/25 Subjective Subjective Interval history: Patient is 74 yr female with PMH of resistant hypertension, hyperlipidemia, mitral stenosis, hypothyroidism, CKD stage IIIb, recurrent UTIs, multiple bladder surgeries for urinary incontinence (but still persistent), anxiety depression presenting to ED due to dysuria. Patient has extensive history of recurrent UTIs since the past 30 years. She has been referred to specialist in [place]. Currently awaiting to see urologist for further workup and recommendations. Patient is experiencing dysuria and throbbing sensation in pelvic region. Was recently discharged after treated with IV antibiotics. Urine culture from 1 week ago grew Klebsiella pneumonia and sensitive to only IV antibiotic. She has severe incontinence and needs to wear pads all times. Has tried multiple medical therapies including prophylactic antibiotics that she is to take daily. This treatment also did not help in symptoms. Patient denies any headache, chest pain, shortness of breath or palpitations. No recent illness. Patient will be admitted for complicated UTI requiring IV meropenem. Vitals in the ED are stable., UA consistent with UTI positive leukocyte esterase, WBC 2009. WBC 8.0, creatinine 1.7. 05/30: Patient examined at bedside. Has no major complaints states that she is feeling better in terms of her dysuria since starting the IV antibiotics. Her incontinence has slightly improved with less pressure in pelvic area and bladder. No hesitancy when starting urination. Meropenem renally dosed for LILA. Creatinine is 1.6. Magnesium 1.6, replete with 4 g. Urine cultures are still pending. Vitals were reviewed and stable. Primary care team has consulted urology for patient case. Blood pressure well-controlled, continue meds as prescribed outpatient. 05/31: Patient seen at bedside. She continues to experience dysuria with frequency throughout the night. Stream is constant during urination. Creatinine has downtrended to 1.3. Vitals are stable. Magnesium 1.6, replete with 4 g. Urine cultures were negative. In house urology recommends that patient see specialist that had previously done bladder surgeries due to complicated history. Continue IV meropenam for complicated UTI. Blood pressure well- controlled, continue meds as prescribed outpatient. 06/01: Patient continues to complain of dysuria still. Has improved since admission but still endorses pelvic pressure. She had PICC line placed today. Apparently, experienced an allergic reaction to contrast. [place] flushed, headache, abdominal pain. Resolved after getting benadryl. Patient will need IV meropenam until . Instructed to follow up with urologist in [place] after discharge. Exam Vital Signs Temp Pulse Resp BP Pulse Ox O2 Del Method O2 Flow Rate 98.2 F 55 L 17 133/88 H 95 Room Air 2 06/01/25 16:00 06/01/25 16:00 06/01/25 16:00 06/01/25 16:00 06/01/25 16:00 06/01/25 16:00 06/01/25 11:00 Narrative Exam General: Alert and oriented x3. No acute distress, cooperative HEENT: NCAT, No JVD noted. Mucosa moist. Pupils are equal and reactive to light bilaterally Cardiovascular: Normal S1 and S2. Regular rate and rhythm. Respiratory: Lungs are clear to auscultation bilaterally. No wheezing or crackles heard. Abdomen: Soft, nontender, not distended, normal bowel sounds. Skin: Warm to touch, dry, no rashes noted Musculoskeletal: No gross injuries. Able to move all 4 extremities. No pitting edema Neuro: Alert and oriented x3. No focal neuro deficits. Psych: Normal affect and mood Objective Labs 06/01/25 04:20 06/01/25 04:20 Labs: Laboratory Results - last 24 hr 06/01/25 04:20 WBC 4.6 RBC 3.52 L Hgb 10.5 L Hct 32.4 L MCV 92 MCH 29.8 MCHC 32.4 RDW Std Deviation 46.5 H Plt Count 195 Neut % (Auto) 49 Lymph % (Auto) 36 [place] % (Auto) 11 Eos % (Auto) 3 Baso % (Auto) 1 Neut # (Auto) 2.2 Lymph # (Auto) 1.7 [place] # (Auto) 0.5 Eos # (Auto) 0.1 Baso # (Auto) 0.0 Immature Gran # (Auto) 0.01 H Absolute Nucleated RBC 0.00 Immature Gran % 0 Nucleated RBC % 0 Sodium 146 H Potassium 4.1 Chloride 105 Carbon Dioxide 28.8 Anion Gap 12 BUN 26 H Creatinine 1.3 Estim Creat Clear Calc 38.3 L eGFR 43 L BUN/Creatinine Ratio 20 Glucose 142 H Calculated Osmolality 297 H Calcium 9.0 Corrected Calcium 9.0 Phosphorus 3.6 Magnesium 1.7 Total Bilirubin < 0.2 L AST 21 ALT 15 Alkaline Phosphatase 26 L Total Protein 5.9 Albumin 4.0 Globulin 1.9 L Albumin/Globulin Ratio 2.1 Quality Measures Quality Measures VTE prophylaxis Advance care planning discussed with:: patient Assessment & Plan Assessment Current Active Medications: Generic Name Dose Route Start Last Admin Trade Name Freq PRN Reason Stop Dose Admin Acetaminophen 650 mg 05/29/25 17:06 06/01/25 00:22 Acetaminophen 325 Mg Tablet PO 06/28/25 17:05 650 mg Q6H PRN Administration Fever >100.5 or pain 1-3 Hydrocodone Bitart/Acetaminophen 1 tab 05/29/25 17:43 06/01/25 11:21 Hydrocodone/Apap 10/325 Tab PO 06/03/25 17:42 1 tab Q6H PRN Administration PAIN SCALE 4-10(Mod-Sev Fenofibrate 160 Mg 0 ea 05/30/25 19:15 06/01/25 08:53 Tablet PO 06/29/25 19:14 1 tablet QDAY ROBERT Administration Doxepin HCl 50 mg 05/29/25 21:00 05/31/25 21:14 Doxepin Hcl 25 Mg Capsule PO 06/28/25 20:59 50 mg HS ROBERT Administration Gabapentin 300 mg 05/29/25 18:00 06/01/25 14:14 Gabapentin 300 Mg Capsule PO 06/28/25 17:59 300 mg TID ROBERT Administration Guanfacine HCl 2 mg 05/29/25 21:00 05/31/25 21:16 Guanfacine Hcl 1 Mg Tablet (Non-Formulary) PO 06/28/25 20:59 2 mg HS ROBERT Administration Heparin Sodium (Porcine) 5,000 unit 05/29/25 22:00 06/01/25 14:18 Heparin Sod Inj 5000 Unit/Ml Vial SC 06/12/25 21:59 Not Given Q8HR ROBERT Hydralazine HCl 100 mg 05/29/25 18:00 06/01/25 08:51 Hydralazine Hcl 25 Mg Tablet PO 06/28/25 17:59 100 mg BID ROBERT Administration Hydrochlorothiazide 25 mg 05/29/25 18:00 06/01/25 08:51 Hydrochlorothiazide 12.5 Mg Capsule PO 06/28/25 17:59 25 mg BID ROBERT Administration Meropenem 1,000 mg/ Sodium 50 mls @ 100 mls/hr 05/30/25 21:00 06/01/25 08:52 Chloride IV 06/06/25 20:59 100 mls/hr BID ROBERT Administration Labetalol HCl 200 mg 05/29/25 18:00 06/01/25 08:52 Labetalol 100 Mg Tablet PO 06/28/25 17:59 200 mg BID ROBERT Administration Levothyroxine Sodium 125 mcg/ 150 mcg 05/30/25 06:00 06/01/25 05:36 Levothyroxine Sodium 25 mcg PO 06/29/25 05:59 150 mcg ACBR ROBERT Administration Nifedipine 30 mg 05/29/25 18:00 06/01/25 08:50 Nifedipine Xl 30 Mg Tabcr PO 06/28/25 17:59 30 mg BID ROBERT Administration Ondansetron HCl 4 mg 06/01/25 11:25 06/01/25 11:44 Ondansetron Inj 2 Mg/Ml Inj 2 Ml IVP 07/01/25 11:24 4 mg Q6HR PRN Administration NAUSEA OR VOMITING Protocol Oxycodone/Acetaminophen 1 tab 05/29/25 17:06 Oxycodone/Apap 5/325 Tablet PO 06/03/25 17:05 On Hold: 05/29/25 19:38 Q6H PRN Comment: DUPLICATE PAIN SCALE PAIN SCALE 4-6 (Moderate Protocol Pravastatin Sodium 80 mg 05/29/25 18:00 05/31/25 21:14 Pravastatin Sodium 10 Mg Tablet PO 06/28/25 17:59 80 mg HS ROBERT Administration Tizanidine HCl 4 mg 05/29/25 17:43 06/01/25 00:22 Tizanidine Hcl 2 Mg Tablet PO 06/28/25 17:42 4 mg HS PRN Administration Muscle Spasticity Plan Patient is 74 yr female with PMH of resistant hypertension, hyperlipidemia, mitral stenosis, hypothyroidism, CKD stage IIIb, recurrent UTIs, multiple bladder surgeries for urinary incontinence (but still persistent), anxiety depression presenting to ED due to dysuria. Patient will be admitted for complicated UTI requiring IV meropenem. #Resistant hypertension #Hyperlipidemia History of resistant hypertension and angina pectoralis with complete negative workup. Takes multiple home anti-hypertensives, managed by cardiology, Dr. Farfan. Blood pressure well-controlled in the ED, 123/74. She takes fenofibrate 160 mg daily, hydralazine 100 twice daily, hydrochlorothiazide 25 mg daily, labetalol 200 twice daily, nifedipine 30 twice daily, pravastatin 80 mg daily. -resume all home medications -monitor vitals # Complicated UTI, ESBL Klebsiella #Recurrent UTI #Incontinence Patient has extensive history of recurrent UTIs since the past 30 years. She has been referred to specialist in [place]. Currently awaiting to see urologist for further workup and recommendations. Patient is experiencing dysuria and throbbing sensation in pelvic region. Was recently discharged after treated with IV antibiotics. Urine culture from 1 week ago grew Klebsiella pneumonia and sensitive to only IV antibiotic. UA consistent with UTI positive leukocyte esterase, WBC 2008. WBC 8.0, creatinine 1.7. -PICC line placed - IV meropenem until -Ucx were negative #CKD stage IIIb #Hypothyroidism #Anxiety/depression #Chronic back pain Primary care team to manage above conditions and ongoing care needs. The patient's management plan was discussed with my attending physician Dr. Farfan. Leanna Reyna, PGY-2
--- NOTE | 2025-06-01 17:50 | PC.NURSE ---
Attempted to contact Dr. Muniz two, Dr. Donald Gomes two times, and Dr. Frost one time, regarding patient discharge plans. No answer to any call.
[2025-06-01] MEDS: PRAVASTATIN SODIUM 10 MG TABLET 80 MG PO (20:27)
[2025-06-01] MEDS: GUANFACINE HCL 1 MG 2 MG PO (20:27)
[2025-06-01] MEDS: DOXEPIN HCL 25 MG CAPSULE 50 MG PO (20:28)
[2025-06-02] VITALS: PULSE 51
[2025-06-02 04:00] VITALS: BP 143/99; PULSE 49; PULSE 50; RESP 17; TEMP 36.4; O2SAT 97
[2025-06-02] MEDS: LEVOTHYROXINE SODIUM 125 MCG, LEVOTHYROXINE SODIUM 25 MCG 150 MCG PO (05:50)
[2025-06-02] MEDS: GABAPENTIN 300 MG CAPSULE PO (05:50)
[2025-06-02 06:07] LABS: Basophils # (Auto) 0.0 Thou/mm3 (0.0-0.2); Basophils % (Auto) 1 % (0-2.5); Eosinophils # (Auto) 0.1 Thou/mm3 (0.0-0.5); Eosinophils % (Auto) 1 % (0-10); Hematocrit 35.3 % (36.0-46.0); Hemoglobin 11.4 g/dL (12.0-16.0); Immature Granulocytes Auto 0.01 Thou/mm3 (0.00-0.00); Lymphocytes # (Auto) 1.8 Thou/mm3 (1.0-4.8); Lymphocytes % (Auto) 33 % (10-50); Mean Corpuscular HGB Conc 32.3 g/dl (31.0-37.0); Mean Corpuscular Hemoglobin 29.6 pg (25.0-35.0); Mean Corpuscular Volume 92 fL (80-100); Monocytes # (Auto) 0.4 Thou/mm3 (0.0-0.8); Monocytes % (Auto) 7 % (0-12); Neutrophils # (Auto) 3.2 Thou/mm3 (1.8-7.7); Neutrophils % (Auto) 58 % (37-80); Nucleated Red Blood Cell # 0.00 Thou/mm3 (0.00-0.00); Nucleated Red Blood Cell % 0 /100 WBC (0); Platelet Count 206 Thou/mm3 (140-440); RDW Standard Deviation 46.2 fL (36.4-46.3); Red Blood Count 3.85 Miln/mm3 (4.00-5.20); White Blood Count 5.6 Thou/mm3 (3.6-11.0)
[2025-06-02 06:36] LABS: Alanine Aminotransferase 15 U/L (10-49); Albumin, Serum 4.6 gm/dL (3.4-4.8); Albumin/Globulin Ratio 2.1 (1.2-2.2); Alkaline Phosphatase 29 U/L (46-116); Anion Gap 11 (7-16); Aspartate Amino Transferase 20 U/L (0-34); BUN/Creatinine Ratio 16 Ratio (12-20); Bilirubin,Total 0.2 mg/dL (0.3-1.2); Blood Urea Nitrogen 22 mg/dL (9-23); Calcium 9.3 mg/dL (8.3-10.6); Calcium (Corrected) 9.3 mg/dL (8.5-10.1); Carbon Dioxide 28.7 mMol/L (20.0-31.0); Chloride 105 mMol/L (98-107); Creatinine (Component) 1.4 mg/dL (0.6-1.3); Estimated Creatinine Clearance 35.5 mL/min (>60); Globulin 2.2 gm/dL (2.3-3.5); Glucose 119 mg/dL (74-106); Magnesium 1.7 mg/dL (1.6-2.6); Osmolality,Calculated 293 (275-295); Phosphorous 3.5 mg/dL (2.4-5.1); Potassium 3.8 mMol/L (3.4-5.1); Sodium 145 mMol/L (136-145); Total Protein 6.8 gm/dL (5.7-8.2); eGFR 39 See Note
[2025-06-02 07:59] VITALS: BP 159/63; PULSE 67; RESP 18; TEMP 36.1; O2SAT 98
--- NOTE | 2025-06-02 09:33 | ESDS_ITS ---
<Statement entered by Shiraz Pike MD - 06/02/25 16:38> Patient seen and examined at bedside. Patient presented with recurrent multidrug-resistant UTI. Reported that she has been having recurrent UTIs for the past [address] scan was done showed pelvic floor laxity. Dr Moreno radiologist recommended that the patient has to be transferred to higher level of care. He recommended the patient to follow-up with Dr. Coombs in [facility] and he will follow-up with the patient as needed as outpatient. Patient will be discharged on a PICC line and IV antibiotics as noted below. - Patient's plan and care discussed with my attending, Dr. Margot Pike MD Internal Medicine PGY-3 Planned Discharge Date 06/02/25 DS: Providers Provider Date of admission: 05/29/25 13:58 Primary care physician: Physician Maddie Primary/Family Admitting Provider: Tiffany Kirk MD Attending Provider on Admission: Devora Hernandez DO Consults: 05/29/25 13:47 Consult to Cardiology Stat Comment: Consulting Provider: Jason Farfan 05/29/25 18:11 Consult to Urology Urgent Comment: Recurrent UTI, Pelvic pain Consulting Provider: Jennifer Moreno 05/29/25 22:36 Consult Diabetic Routine Comment: Referral Registered Dietitian Routine Comment: Attending Provider on DC: Juan Frost MD Discharging Provider: Juan Frost MD DS: Diagnosis Problem List Completed Was Problem List Reviewed/Reconciled?: Yes Hospital Course Hospital Course Hospital course: Patient is 74 yr female with PMH of resistant hypertension, hyperlipidemia, mitral stenosis, hypothyroidism, CKD stage IIIb, recurrent UTIs, multiple bladder surgeries for urinary incontinence (but still persistent), anxiety depression presented to the ED at [facility] due to dysuria. Patient admitted for evaluation and management of resistant UTI. Patient has extensive history of recurrent UTIs since the past 30 years. She has been referred to urology nessa geronimo in [place]. Urine culture from 1 week ago grew Klebsiella pneumonia and sensitive to only IV antibiotic, was started on Meropenem. Patient had a picc line inserted so that she could go home with home health and continue antibiotics outpatient. Patient did have an allergic reaction to the contrast when the picc line was being inserted which included some difficulty breahting, swallowing. Patient was given diphenhydramine and steroid with quick resolvement in anaphylactic symptoms. Patient was discharged in a clinically stable status, was prescribed ertapenem for outpatient IV with home health. Dischage Instructions - We are sending you home with picc line for antibiotic use of ertapenem - You were referred by the urologist Dr Moreno to Dr Coombs in [place] [address] ease follow up with him. Dr Moreno recommended to follow up with him as needed. - Home health will be helping assist you at home with the antibiotic administration ? Continue taking all other home medications as prescribed ? Follow-up with PCP within 1-2 weeks of discharge ? If you do not have a PCP, you can follow-up at the [facility] (you can call [phone] to make an appointment) ? Return to ED if symptoms worsen or recur. #UTI #ESBL Klebsiella pneumoniae #History of recurrent UTI #HTN, resistant #hypothyroidism #LILA? on CKD #HLD #chronic pain #anxiety #depression #history of osteoarthritis #mitral stenosis Patient plan of care was discussed with the attending physician, Dr. Frost & senior resident Dr. Shahzad Muniz MD PGY-1 Time Spent with Patient Time attestation: Total time spent providing and/or coordinating discharge services: Time spent: Greater than 30 minutes Home Health Home Health Referral Orders: 05/31/25 10:20 Home Health Referral Routine Reason For Exam: MDRO complicated UTI Home-Bound The patient must either because of illness or injury, need the aid of supportive devices such as crutches, canes, wheelchairs, and walkers; the use of special transportation; or the assistance of another person in order to leave their place of residence; OR have a condition such that leaving his or her home is medically contraindicated. In addition, the patient also meets the following criteria: patient is normally unable to leave the home and leaving home requires considerable taxing effort. Addendum to Home Health Certification Practitioner's Certification: I certify that the patient has been under my care in the hospital and the care of attending physician (see below). We had a [id number] encounter on (see date below). My clinical findings indicate that the patient is home bound per the above criteria and the Home Health Services noted in these orders are medically necessary. The primary reason for the [id number] encounter is related to the fact that the patient requires home health services. Date Certifying Wzpq-so-Xtja Physician Encounter: 05/29/25 Physician's Name who will Assume Oversight for HH Services: Rogelio Hagen [employer] ATTENDANT - Community Resources: No PT to Evaluate: No PT to evaluate and provide a treatmnet plan to increase patient's mobility an d strength. Wound Care: No IV Therapy: Yes IV Medication: ertapenem IV Dose: 1g IV Frequency: daily IV Stop Date: 06/06/25 Discontinue PICC Line Once Treatment Complete: Yes RN Safety Evaluation: Yes RN to evaluate and create a plan of care that will produce positive outcomes. Palliative Treatment: No Palliative treatment and evaluate the need for hospice. Home Health Aide - Personal Care: Yes Home Health Aide to assist with any ADL's. Exam Vital Signs Temp Pulse Resp BP Pulse Ox O2 Del Method O2 Flow Rate 97.0 F 67 18 159/63 H 98 Room Air 2 06/02/25 07:59 06/02/25 07:59 06/02/25 07:59 06/02/25 07:59 06/02/25 07:59 06/02/25 07:59 06/01/25 11:00 Narrative Exam General: No acute distress; A&Ox3 Skin: Warm, dry, intact, no obvious rash. HENT: NCAT, EOMI/PERRL, not icteric. External ears normal. No rhinorrhea. Moist mucous membranes Cardiovascular: Regular rate and rhythm, no murmur, +S1/S2. Respiratory: Lungs CTAB GI: Soft, nontender, non-distended. No guarding or rebound tenderness. : No flank tenderness bilaterally. Extremities: no edema, no cyanosis, no clubbing. Extremity pulses present Neuro: Grossly nonfocal. Moving all 4 extremities. CN not formally tested but appear grossly intact. Psychiatric: Cooperative, appropriate affect. Discharge Plan Plan Patient Disposition: Home w/HOME HEALTH Patient condition on transfer: Stable Care Plan Goals: - We are sending you home with picc line for antibiotic use of ertapenem - You were referred by the urologist Dr Moreno to Dr Coombs in [place] please follow up with him. Dr Moreno recommended to follow up with him as needed. - Home health will be helping assist you at home with the antibiotic administration ? Continue taking all other home medications as prescribed ? Follow-up with PCP within 1-2 weeks of discharge ? If you do not have a PCP, you can follow-up at the [facility] (you can call [phone] to make an appointment) ? Return to ED if symptoms worsen or recur. Prescriptions/Referrals Prescriptions/Med Rec: New ertapenem 1 gram recon soln 1 g IV QDAY Continued fenofibrate 160 mg tablet 160 mg PO DAILY Patient Comments: TAKE 1 TABLET BY MOUTH EVERY DAY FOR 90 DAYS gabapentin 300 mg capsule 900 mg PO TID Patient Comments: TAKE 3 CAPSULES BY MOUTH 3 TIMES A DAY nifedipine 30 mg tablet extended release 30 mg PO BID hydrochlorothiazide 25 mg tablet 25 mg PO BID Patient Comments: TAKE 1 TABLET BY MOUTH EVERY DAY IN THE MORNING FOR 90 DAYS hydrocodone-acetaminophen 10-325 mg tablet 1 tab PO Q4H PRN (Reason: pain) Patient Comments: TAKE 1 TABLET BY MOUTH EVERY 4-6 HOURS NEEDED levothyroxine 150 mcg tablet 150 mcg PO DAILY Patient Comments: TAKE 1 TABLET BY MOUTH EVERY DAY IN THE MORNING ON EMPTY STOMACH FOR 90 DAYS ondansetron 4 mg tablet,disintegrating 4 mg PO Q8H PRN (Reason: nausea and vomiting) Patient Comments: DISSOLVE 1 TO 2 TABLETS BY MOUTH EVERY 8 HOURS NEEDED FOR NAUSEA AND VOMITING tizanidine 4 mg capsule 4 mg PO HS PRN (Reason: muscle spasticity) Patient Comments: TAKE 1 CAPSULE BY MOUTH EVERY DAY AT BEDTIME NEEDED doxepin 50 mg capsule 50 mg PO HS Patient Comments: TAKE 1 CAPSULE BY MOUTH EVERYDAY AT BEDTIME hydralazine 100 mg tablet 100 mg PO BID Patient Comments: TAKE 1 TABLET BY MOUTH 3 TIMES A DAY labetalol 200 mg tablet 200 mg PO BID Patient Comments: TAKE 1 TABLET BY MOUTH TWICE A DAY FOR 90 DAYS pravastatin 80 mg tablet 80 mg PO HS Patient Comments: TAKE 1 TABLET BY MOUTH EVERYDAY AT BEDTIME guanfacine 2 mg tablet 2 mg PO HS Patient Comments: TAKE 1 TABLET BY MOUTH EVERY DAY AT BEDTIME FOR 90 DAYS Discontinued methenamine hippurate 1 gram tablet 1 g PO BID Qty: 30 3RF methenamine hippurate 1 gram tablet 1 g PO BID Qty: 30 2RF fosfomycin tromethamine 3 gram packet 1 packet PO Q OTHER DAY Qty: 3 0RF Rx Instructions: Take 1dose every 2days for 3doses Referrals: Rogelio Hagen MD [Referring Provider] Patient/Caregiver Discharge Instructions Discharge Activity: activity as tolerated Other Discharge Activity Instructions:: We are sending you home with picc line for antibiotic use of ertapenem - You were referred by the urologist Dr Moreno to Dr Coombs in [place] please follow up with him. Dr Moreno recommended to follow up with him as needed. - Home health will be helping assist you at home with the antibiotic administration ? Continue taking all other home medications as prescribed ? Follow-up with PCP within 1-2 weeks of discharge ? If you do not have a PCP, you can follow-up at the [facility] (you can call [phone] to make an appointment) ? Return to ED if symptoms worsen or recur. Education Materials: Anatomy of the Female Urinary Tract, Urinary Tract Infections in Women, When to Use Antibiotics Print Language: Croatian Stand Alone Forms: Radha Award Info., Patient Portal Info Letter Discharge Order Discharge Orders: Discharge (Routine); Ordered 06/02/25 Ordered By: Shiraz Pike Quality Discharge Quality Measures VTE prophylaxis Attestestation MD Attestation I have examined the patient, reviewed labs and imaging findings, discussed the case with the resident(s), and reviewed entered orders. I agree with the plan of care as outlined in this note. Time Spent: [address] Margot MD
--- NOTE | 2025-06-02 11:11 | PC.CC ---
Addendum entered by Lani Owen RN 06/02/25 11:12: DC summary, instructions, and PICC line report sent to [facility] and [facility]. Original Note: [id number]: spoke to MS GERRY Gibson regarding pt's DC plan to dc early this morning. [facility] SOC is @ 10 am. She stated patient will be discharged for that SOC time.
== END 2025-06-02 07:45 | disposition home health service (06) | DRG 690 ==
LOC: SERX 13:01 → SERHOLD 14:54 → S3SX 05-30 06:28 → SERHOLD 06-02 06:36 → S3SX 06-02 06:37
PROVIDERS: Nurse Practitioner Family; Student in an Organized Health Care Education/Training Program; Admitting Provider Student in an Organized Health Care Education/Training Program; Emergency Provider Emergency Medicine; Visit Provider Internal Medicine
DX: N39.0 Urinary tract infection, site not specified (principal); N17.9 Acute kidney failure, unspecified; Z16.12 Extended spectrum beta lactamase (ESBL) resistance; Z16.24 Resistance to multiple antibiotics; E78.5 Hyperlipidemia, unspecified; E03.9 Hypothyroidism, unspecified; B96.1 Klebsiella pneumoniae [K. pneumoniae] as the cause of diseases classified elsewhere; I12.9 Hypertensive chronic kidney disease with stage 1 through stage 4 chronic kidney disease, or unspecified chronic kidney disease; F41.9 Anxiety disorder, unspecified; G89.29 Other chronic pain; F32.A Depression, unspecified; I1A.0 Resistant hypertension; I05.0 Rheumatic mitral stenosis; R32 Unspecified urinary incontinence; M19.90 Unspecified osteoarthritis, unspecified site; N18.32 Chronic kidney disease, stage 3b; T50.8X5A Adverse effect of diagnostic agents, initial encounter; Z79.890 Hormone replacement therapy; Z79.899 Other long term (current) drug therapy; Z87.440 Personal history of urinary (tract) infections; Z92.3 Personal history of irradiation
CPT/HCPCS: 36415; 74176; 80053; 80061; 81001; 83735; 84100; 84443; 85025; 85610; 85730; 87081; 87086; 93225; 96365; 99283; A4649; A9270; C1751; C1894; J1200; J1642; J1720; J2185; J2405; J3490; J7050; Q0162; Q9967